=== PATIENT | female | born 1945 | race Caucasian/White ===

== ENCOUNTER → 2016-10-12 | Outpatient (CLI) | payer MEDICARE ==
[~2016-10-12] MED LIST: ASP81TEC PO; ATOR80TA; ATOR80TA PO; AZIT-21 PO; CALC-671 PO; CALC-80 PO; CARV12.52; CARV12.53 PO; CATHETER FLUSH 10 ML SYR IV PRN; CLIN-62 PO; CLOP75TA PO; CLPD75T; DICY10CA26 PO; EXEM25TA4 PO; FAMO20TA5 PO; HCT25T; HCT25T PO; HYDR1TAB PO; HYDR25TA4 PO; KCL20TCR; LEVO125T PO; LEVO500T69 PO; LVT.1T PO; METR500T PO; Melatonin PO; OMEG-12 PO; OMG1KC; PANT40SU PO; PANT40TA PO; PNT40TEC; POTA20TA15 PO; RAMI10CA PO; RAMI10CA18 PO; REGADENOSON 0.4 MG/5 ML SYR (LEXISCAN) IV ONE; RMP5C; Trazodone Hcl PO; ZLP10T PO; [UNRECOGNIZED DRUG - OTHER]
[2016-10-12 09:31] VITALS: BP 137/91
--- NOTE | 2016-10-12 14:34 | STRESS TEST ---
DATE OF SERVICE: 10/12/2016 RESTING AND POST REGADENOSON TECHNETIUM 99M TETROFOSMIN SPECT CT IMAGING ORDERING PHYSICIAN: Joycelyn Frey APRN PRIMARY PHYSICIAN: Dr. Mayo. OTHER PHYSICIAN: Wilmar Cash MD, MA, FACP, FACC CLINICAL DIAGNOSES: Coronary artery disease, atrial fibrillation. Baseline images were carried out after injection of 10.63 mCi of technetium-99m tetrofosmin. This was followed by 0.4 mg regadenoson and 30.5 mCi of technetium-99m tetrofosmin for stress imaging. The electrocardiogram showed atrial fibrillation throughout the study. Ventricular response was somewhat rapid. She tolerated the procedure well and did not report symptoms. Review of images at rest and following stress does not indicate any significant perfusion defects consistent with significant myocardial ischemia or infarction. Gated images showed normal global left ventricular systolic function with normal regional wall motion. Left ventricular ejection fraction is calculated to be 69%. Left ventricular end-diastolic volume is 24 mL. CONCLUSIONS: 1. No evidence of any significant myocardial ischemia or infarction on this study. 2. Normal regional wall motion. 3. Normal global left ventricular systolic function with a calculated ejection fraction of 69%. 4. Atrial fibrillation throughout the study with a somewhat fast ventricular response. Job ID: [id number] DocumentID: [id number] Dictated Date: 10/12/2016 12:05:50 Systems Technologist Date: 10/12/2016 13:49:48 Dictated By: WILMAR CASH MD, MARIO, FACP, FACC,
== END ==
LOC: CARD 07:56
PROVIDERS: ATTEND Nurse Practitioner Family
DX: I48.0 Paroxysmal atrial fibrillation (principal); I25.10 Atherosclerotic heart disease of native coronary artery without angina pectoris; I65.23 Occlusion and stenosis of bilateral carotid arteries; E78.4 Other hyperlipidemia; E03.8 Other specified hypothyroidism
CPT/HCPCS: 78452; 93017

== ENCOUNTER → 2016-10-16 | Outpatient (CLI) | payer MEDICARE ==
[~2016-10-16] MED LIST changes: -CATHETER FLUSH 10 ML SYR IV PRN; -REGADENOSON 0.4 MG/5 ML SYR (LEXISCAN) IV ONE
--- NOTE | 2016-10-16 18:06 | Diagnostic Imaging Report ---
Right breast screening mammogram. INDICATION: Screening. No current symptoms. The patient has had history of breast cancer status post left mastectomy. COMPARISON: 10/14/15. The current study was also evaluated with a Computer Aided Detection (CAD) system. FINDINGS: The right breast is composed of heterogeneously dense parenchyma which may decrease mammographic sensitivity. Benign-appearing and vascular calcifications are noted. Small axillary lymph nodes similar to prior studies are noted. Allowing for technique and positional differences, no suspicious change is seen. IMPRESSION: No significant change. ACR BI-RADS Category 2: Benign findings. Result letter will be mailed to the patient. Note: At least 10% of breast cancer is not imaged by mammography. Dictated by: Dictated on workstation # [id number]
== END ==
LOC: RAD 10:36
PROVIDERS: ATTEND Internal Medicine Hematology & Oncology
DX: Z12.31 Encounter for screening mammogram for malignant neoplasm of breast (principal); Z90.12 Acquired absence of left breast and nipple; Z85.3 Personal history of malignant neoplasm of breast

== ENCOUNTER → 2016-10-25 | Outpatient (CLI) | payer MEDICARE | LOC: ONC 09:24 | PROVIDERS: ATTEND Internal Medicine Hematology & Oncology | DX: Z09 Encounter for follow-up examination after completed treatment for conditions other than malignant neoplasm (principal); Z85.3 Personal history of malignant neoplasm of breast; R94.6 Abnormal results of thyroid function studies; D75.1 Secondary polycythemia; I48.0 Paroxysmal atrial fibrillation; Z79.01 Long term (current) use of anticoagulants; E11.9 Type 2 diabetes mellitus without complications; E78.5 Hyperlipidemia, unspecified; I25.2 Old myocardial infarction; I25.10 Atherosclerotic heart disease of native coronary artery without angina pectoris; Z79.82 Long term (current) use of aspirin; H40.9 Unspecified glaucoma | CPT/HCPCS: 99213 ==

== ENCOUNTER → 2017-02-27 | Day surgery (SDC) | payer MEDICARE ==
[~2017-02-27] VITALS: Ht 160 cm; Wt 97.1 kg
[~2017-02-27] MED LIST changes: +ACET-2267 PO; +AMIO200T2 PO; +APIX5TAB PO; +ASPI-983 PO; +CARV6.252 PO; +ESCI5TAB12 PO; +FURO40TA4 PO; +INFLUENZA TRIvalent 2017-2018 0.5 ML/45 MCG SYR IM ONE; +LEVO100T7 PO; +LIDOCAINE 2% VISCOUS 15 ML UDC ONE; +LIDOCAINE 2% VISCOUS 15 ML UDC PO ONE; +MELA3TAB PO; +MIDAZOLAM 5 MG/5 ML (VERSED) VIAL ONE; +NS IV 1000 ML 1,000 ML IV SCH; +NS IV 1000 ML 1,000 ML ONE; +OMEG-160 PO; +PANT40TA3 PO; +POTA10TA10 PO; +RAMI2.5C PO; +TRAZ-28 PO; +proPOfol 200 MG/20 ML (DIPRIVAN) VIAL IV ONE
[2017-02-27 10:32] VITALS: BP 127/82
[2017-02-27 11:06] LABS: PROTHROMBIN TIME PATIENT 13.3 SEC (12.2-14.7)
[2017-02-27 11:14] LABS: CALCIUM 9.1 MG/DL (8.5-10.1); CREATININE SERUM 0.95 MG/DL (0.60-1.30); TOTAL PROTEIN 6.5 GM/DL (6.4-8.2)
[2017-02-27 12:38] VITALS: BP 99/77
[2017-02-27 13:17] VITALS: BP 111/79
--- NOTE | 2017-02-27 13:22 | Progress Note-Standard ---
Standard Progress Note Progress Notes/Assess & Plan Date Seen by Provider: Feb 27, 2017 Time Seen by Provider: 12:05 Final Diagnosis Called to [facility] for cardioversion. Report obtained from [facility] RN. Short history obtained from patient. to room 50 mg propofol given for sedation. Tolerated procedure well. Report to [facility] RN. Spontaneous respirations maintained. Called back to [facility] at 1224. Patient back into A-fib. 40mg of Propofol given for re-sedation. Tolerated well, Care back to [facility] RN. GARRET ALBERTS CRNA Feb 27, 2017 13:22
--- NOTE | 2017-02-28 12:06 | OPERATIVE REPORT ---
DATE OF SERVICE: 02/27/2017 EXTERNAL ELECTRICAL CARDIOVERSION REPORT: PREOPERATIVE DIAGNOSIS: Atrial fibrillation. POSTOPERATIVE DIAGNOSIS: Sinus rhythm. PROCEDURE: External electrical cardioversion. External electrical cardioversion was carried out after having obtained an informed consent. The patient has chronically been anticoagulated for several months. She has been complaint with medications. Short acting anesthesia was administered by the nurse manager utilization. Under anesthesia, we proceeded with external electrical cardioversion. 150 joules of synchronized shock was administered through external patches and this restored sinus rhythm. This had to be repeated because she went back into a fib shortly after first cardioversion. The second time she maintained NSR with PACs Job ID: [id number] DocumentID: [id number] Dictated Date: 02/27/2017 12:18:48 Hostess Cashier Date: 02/28/2017 03:07:01 Dictated By: MICHELLE CASH MD, MA, FACP, FACC, MTDD
== END ==
LOC: CATH 09:55
PROVIDERS: ATTEND Internal Medicine Cardiovascular Disease
DX: I48.0 Paroxysmal atrial fibrillation (principal); I50.31 Acute diastolic (congestive) heart failure; I25.10 Atherosclerotic heart disease of native coronary artery without angina pectoris; E89.0 Postprocedural hypothyroidism; K21.9 Gastro-esophageal reflux disease without esophagitis; E78.5 Hyperlipidemia, unspecified; R73.09 Other abnormal glucose; Z79.01 Long term (current) use of anticoagulants; Z79.899 Other long term (current) drug therapy; Z87.891 Personal history of nicotine dependence; Z95.5 Presence of coronary angioplasty implant and graft
CPT/HCPCS: 36415; 80053; 80061; 85610; 85730; 87081; 92960; 93005; 93306

== ENCOUNTER → 2017-03-19 | Outpatient (CLI) | payer MEDICARE ==
[~2017-03-19] MED LIST changes: -INFLUENZA TRIvalent 2017-2018 0.5 ML/45 MCG SYR IM ONE; -LIDOCAINE 2% VISCOUS 15 ML UDC ONE; -LIDOCAINE 2% VISCOUS 15 ML UDC PO ONE; -MIDAZOLAM 5 MG/5 ML (VERSED) VIAL ONE; -NS IV 1000 ML 1,000 ML IV SCH; -NS IV 1000 ML 1,000 ML ONE; -proPOfol 200 MG/20 ML (DIPRIVAN) VIAL IV ONE
--- NOTE | 2017-03-19 12:24 | Diagnostic Imaging Report ---
PROCEDURE: US Thyroid. TECHNIQUE: Multiple real-time grayscale images were obtained of the thyroid in various projections. INDICATION: Elevated TSH. The patient had prior radioactive thyroid ablation. FINDINGS: No thyroid tissue is identified on this exam and no focal mass is seen. IMPRESSION: No thyroid tissue or mass seen in the thyroid bed. Dictated by: Dictated on workstation # [id number]
== END ==
LOC: RAD 08:39
PROVIDERS: ATTEND Nurse Practitioner Family
DX: R94.6 Abnormal results of thyroid function studies (principal)
CPT/HCPCS: 76536

== ENCOUNTER → 2017-07-16 | Outpatient (CLI) | payer MEDICARE ==
--- NOTE | 2017-07-16 12:37 | Diagnostic Imaging Report ---
PROCEDURE: US right lower extremity venous. TECHNIQUE: Multiple real-time grayscale images were obtained over the right lower extremity in various projections. Additional duplex Doppler and color Doppler images were also obtained. INDICATION: Right leg pain and swelling EXAMINATION: Grayscale and color Doppler evaluation of the deep veins of the right lower extremity were performed with waveform analysis. FINDINGS: Continuous venous flow is present. No intraluminal filling defect is identified. There is normal compressibility and response to augmentation. No abnormal perivascular fluid collection is identified. IMPRESSION: No ultrasound evidence of right lower extremity deep venous thrombosis. Dictated by: Dictated on workstation # [id number]
== END ==
LOC: RAD 12:05
PROVIDERS: ATTEND Family Medicine
DX: M79.89 Other specified soft tissue disorders (principal)

== ENCOUNTER 2017-08-19 09:26 | Emergency (ER) | payer MEDICARE ==
[~2017-08-19] VITALS: Ht 162.6 cm; Wt 96.6 kg
--- OUTSIDE RECORDS SUMMARY | 2017-08-19 09:33 | XMS REPORT | CCD ---
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 04/21/2015 Constitutional No recent illness 2014 Constitutional No fatigue 11/18/2014 Cardiovascular exercise intolerance 11/18 Cardiovascular fatigue 11/18/2014 Cardiovascular near-syncope/dizziness Cardiovascular palpitations 11/18/2014 Respiratory No chest tightness 2014 Constitutional No recent illness 2014 Constitutional No chills 11/10/2014 Constitutional No fatigue 11/10/2014 Constitutional No fever 11/10/2014 Constitutional No insomnia 11/10/2014 Constitutional No malaise 11/10/2014 Eyes No blindness 11/10/2014 Eyes No vision change 11/10/2014 Ears/Nose/Throat/Neck No dental pain Ears/Nose/Throat/Neck No dizziness 2014 Ears/Nose/Throat/Neck No dysphagia 2014 Ears/Nose/Throat/Neck No headache 2014 Ears/Nose/Throat/Neck No hearing loss Ears/Nose/Throat/Neck No nasal allergies 11/10/2014 Ears/Nose/Throat/Neck No sore throat Ears/Nose/Throat/Neck No postnasal drip 11/10/2014 Ears/Nose/Throat/Neck No sinus congestion 11/10/2014 Cardiovascular No chest pain/pressure Cardiovascular No dyspnea 11/10/2014 Cardiovascular No edema 11/10/2014 Cardiovascular No exercise intolerance Cardiovascular No fatigue 11/10/2014 Cardiovascular No near-syncope/dizziness 11/10/2014 Respiratory No chest tightness 2014 Respiratory No cough 11/10/2014 Respiratory No dyspnea 11/10/2014 Respiratory No pedal edema 11/10/2014 Gastrointestinal No abdominal pain 2014 Gastrointestinal No constipation 2014 Gastrointestinal No diarrhea 11/10/2014 Gastrointestinal No gastroesophageal reflux 11/10/2014 Gastrointestinal No nausea 11/10/2014 Gastrointestinal No vomiting 11/10/2014 Genitourinary/Nephrology No dysuria 11/10 Genitourinary/Nephrology No nocturia Genitourinary/Nephrology No urinary incontinence 11/10/2014 Musculoskeletal No stiffness 11/10/2014 Musculoskeletal No swelling 11/10/2014 Musculoskeletal No muscle weakness 2014 Musculoskeletal No myalgias 11/10/2014 Dermatologic No rash 11/10/2014 Dermatologic No sores 11/10/2014 Dermatologic No scar 11/10/2014 Neurologic No dizziness 11/10/2014 Neurologic No headache 11/10/2014 Neurologic No neck pain 11/10/2014 Neurologic No syncope 11/10/2014 Psychiatric No anxiety 11/10/2014 Psychiatric No depression 11/10/2014 Physical Exam Exam Name System Name Item Name Status Result Effective Dates Notes Full Exam - General 1994 Constitutional general appearance Development: well developed 04/17/2017 None Full Exam - General 1994 Constitutional general appearance Development: appears stated age 1104/17/2017 None Full Exam - General 1994 Constitutional general appearance Hygiene/Attention to Grooming: good hygiene 04/17/2017 None Full Exam - General 1994 Eyes conjunctiva /eyelids Overall: conjunctiva clear 04/17/2017 None Full Exam - General 1994 Eyes conjunctiva /eyelids Overall: cornea clear 04/17/2017 None Full Exam - General 1994 Eyes conjunctiva /eyelids Overall: eyelids normal 04/17/2017 None Full Exam - General 1994 Eyes pupils and irises Overall: pupils equal, round, reactive to light and accomodation 04/17/2017 None Full Exam - General 1994 Ears/Nose/Throat otoscopic exam Overall: external auditory canals clear 04/17/2017 None Full Exam - General 1994 Ears/Nose/Throat otoscopic exam Overall: tympanic membranes clear 04/17/2017 None Full Exam - General 1994 Ears/Nose/Throat lips/teeth/gingiva Overall: benign lips 04/17/2017 None Full Exam - General 1994 Ears/Nose/Throat lips/teeth/gingiva Overall: normal dentition 04/17/2017 None Full Exam - General 1994 Ears/Nose/Throat oral cavity/pharynx/larynx Overall: oral mucosa clear 04/17/2017 None Full Exam - General 1994 Ears/Nose/Throat oral cavity/pharynx/larynx Overall: oropharyngeal mucosa clear 04/17/2017 None Full Exam - General 1994 Ears/Nose/Throat oral cavity/pharynx/larynx Overall: hypopharynx benign 04/17/2017 None Full Exam - General 1994 Ears/Nose/Throat oral cavity/pharynx/larynx Overall: no masses 04/17/2017 None Full Exam - General 1994 Respiratory auscultation Overall: breath sounds clear bilaterally 04/17/2017 None Full Exam - General 1994 Respiratory respiratory effort/rhythm Overall: no retractions 04/17/2017 None Full Exam - General 1994 Respiratory respiratory effort/rhythm Overall: normal rate 04/17/2017 None Full Exam - General 1994 Cardiovascular extremities Overall: no clubbing 04/17/2017 None Full Exam - General 1994 Cardiovascular auscultation of heart Rate: tachycardia 04/17/2017 None Full Exam - General 1994 Cardiovascular auscultation of heart Rhythm: irregularly irregular rhythm 04/17/2017 None Full Exam - General 1994 Abdomen abdominal exam Overall: no tenderness 04/17/2017 None Full Exam - General 1994 Abdomen abdominal exam Overall: normal bowel sounds 04/17/2017 None Full Exam - General 1994 Musculoskeletal spine, ribs and pelvis Overall: spine benign 04/17/2017 None Full Exam - General 1994 Musculoskeletal spine, ribs and pelvis Overall: sacroiliac joint benign 04/17/2017 None Full Exam - General 1994 Musculoskeletal spine, ribs and pelvis Overall: good posture 04/17/2017 None Full Exam - General 1994 Musculoskeletal head and neck Overall: head atraumatic 04/17/2017 None Full Exam - General 1994 Musculoskeletal head and neck Overall: cervical spine benign 04/17/2017 None Full Exam - General 1994 Neurologic cranial nerves Overall: crainial nerves 2 - 12 grossly intact 04/17/2017 None Full Exam - General 1994 Psychiatric orientation/consciousness Overall: oriented to person, place and time 04/17/2017 None Full Exam - General 1994 Psychiatric mood and affect Overall: normal mood and affect 04/17/2017 None Full Exam - General 1994 Constitutional general appearance Development: well developed 03/12/2017 None Full Exam - General 1994 Constitutional general appearance Development: appears stated age 1003/12/2017 None Full Exam - General 1994 Constitutional general appearance Hygiene/Attention to Grooming: good hygiene 03/12/2017 None Full Exam - General 1994 Eyes conjunctiva /eyelids Overall: conjunctiva clear 03/12/2017 None Full Exam - General 1994 Eyes conjunctiva /eyelids Overall: cornea clear 03/12/2017 None Full Exam - General 1994 Eyes conjunctiva /eyelids Overall: eyelids normal 03/12/2017 None Full Exam - General 1994 Eyes pupils and irises Overall: pupils equal, round, reactive to light and accomodation 03/12/2017 None Full Exam - General 1994 Ears/Nose/Throat otoscopic exam Overall: external auditory canals clear 03/12/2017 None Full Exam - General 1994 Ears/Nose/Throat otoscopic exam Overall: tympanic membranes clear 03/12/2017 None Full Exam - General 1994 Ears/Nose/Throat lips/teeth/gingiva Overall: benign lips 03/12/2017 None Full Exam - General 1994 Ears/Nose/Throat lips/teeth/gingiva Overall: normal dentition 03/12/2017 None Full Exam - General 1994 Ears/Nose/Throat oral cavity/pharynx/larynx Overall: oral mucosa clear 03/12/2017 None Full Exam - General 1994 Ears/Nose/Throat oral cavity/pharynx/larynx Overall: oropharyngeal mucosa clear 03/12/2017 None Full Exam - General 1994 Ears/Nose/Throat oral cavity/pharynx/larynx Overall: hypopharynx benign 03/12/2017 None Full Exam - General 1994 Ears/Nose/Throat oral cavity/pharynx/larynx Overall: no masses 03/12/2017 None Full Exam - General 1994 Respiratory auscultation Overall: breath sounds clear bilaterally 03/12/2017 None Full Exam - General 1994 Respiratory respiratory effort/rhythm Overall: no retractions 03/12/2017 None Full Exam - General 1994 Respiratory respiratory effort/rhythm Overall: normal rate 03/12/2017 None Full Exam - General 1994 Cardiovascular extremities Overall: no clubbing 03/12/2017 None Full Exam - General 1994 Cardiovascular auscultation of heart Rate: tachycardia 03/12/2017 None Full Exam - General 1994 Cardiovascular auscultation of heart Rhythm: irregularly irregular rhythm 03/12/2017 None Full Exam - General 1994 Abdomen abdominal exam Overall: no tenderness 03/12/2017 None Full Exam - General 1994 Abdomen abdominal exam Overall: normal bowel sounds 03/12/2017 None Full Exam - General 1994 Lymphatic neck nodes Overall: anterior cervical chain benign 03/12/2017 None Full Exam - General 1994 Lymphatic neck nodes Overall: posterior cervical chain benign 03/12/2017 None Full Exam - General 1994 Musculoskeletal spine, ribs and pelvis Overall: spine benign 03/12/2017 None Full Exam - General 1994 Musculoskeletal spine, ribs and pelvis Overall: sacroiliac joint benign 03/12/2017 None Full Exam - General 1994 Musculoskeletal spine, ribs and pelvis Overall: good posture 03/12/2017 None Full Exam - General 1994 Musculoskeletal head and neck Overall: head atraumatic 03/12/2017 None Full Exam - General 1994 Musculoskeletal head and neck Overall: cervical spine benign 03/12/2017 None Full Exam - General 1994 Neurologic cranial nerves Overall: crainial nerves 2 - 12 grossly intact 03/12/2017 None Full Exam - General 1994 Psychiatric orientation/consciousness Overall: oriented to person, place and time 03/12/2017 None Full Exam - General 1994 Psychiatric mood and affect Overall: normal mood and affect 03/12/2017 None Full Exam - General 1994 Integument inspection of skin Rash/Lesions: papule 03/12/2017 on arms, lower legs at thighs and lower legs, no lesions on chest, neck, face Full Exam - General 1994 Constitutional general appearance Development: well developed 10/16/2016 None Full Exam - General 1994 Constitutional general appearance Development: appears stated age 0510/16/2016 None Full Exam - General 1994 Constitutional general appearance Hygiene/Attention to Grooming: good hygiene 10/16/2016 None Full Exam - General 1994 Eyes conjunctiva /eyelids Overall: conjunctiva clear 10/16/2016 None Full Exam - General 1994 Eyes conjunctiva /eyelids Overall: cornea clear 10/16/2016 None Full Exam - General 1994 Eyes conjunctiva /eyelids Overall: eyelids normal 10/16/2016 None Full Exam - General 1994 Eyes pupils and irises Overall: pupils equal, round, reactive to light and accomodation 10/16/2016 None Full Exam - General 1994 Ears/Nose/Throat otoscopic exam Overall: external auditory canals clear 10/16/2016 None Full Exam - General 1994 Ears/Nose/Throat otoscopic exam Overall: tympanic membranes clear 10/16/2016 None Full Exam - General 1994 Ears/Nose/Throat lips/teeth/gingiva Overall: benign lips 10/16/2016 None Full Exam - General 1994 Ears/Nose/Throat lips/teeth/gingiva Overall: normal dentition 10/16/2016 None Full Exam - General 1994 Ears/Nose/Throat oral cavity/pharynx/larynx Overall: oral mucosa clear 10/16/2016 None Full Exam - General 1994 Ears/Nose/Throat oral cavity/pharynx/larynx Overall: oropharyngeal mucosa clear 10/16/2016 None Full Exam - General 1994 Ears/Nose/Throat oral cavity/pharynx/larynx Overall: hypopharynx benign 10/16/2016 None Full Exam - General 1994 Ears/Nose/Throat oral cavity/pharynx/larynx Overall: no masses 10/16/2016 None Full Exam - General 1994 Respiratory auscultation Overall: breath sounds clear bilaterally 10/16/2016 None Full Exam - General 1994 Respiratory respiratory effort/rhythm Overall: no retractions 10/16/2016 None Full Exam - General 1994 Respiratory respiratory effort/rhythm Overall: normal rate 10/16/2016 None Full Exam - General 1994 Cardiovascular extremities Overall: no clubbing 10/16/2016 None Full Exam - General 1994 Abdomen abdominal exam Overall: no tenderness 10/16/2016 None Full Exam - General 1994 Abdomen abdominal exam Overall: normal bowel sounds 10/16/2016 None Full Exam - General 1994 Lymphatic neck nodes Overall: anterior cervical chain benign 10/16/2016 None Full Exam - General 1994 Lymphatic neck nodes Overall: posterior cervical chain benign 10/16/2016 None Full Exam - General 1994 Musculoskeletal spine, ribs and pelvis Overall: spine benign 10/16/2016 None Full Exam - General 1994 Musculoskeletal spine, ribs and pelvis Overall: sacroiliac joint benign 10/16/2016 None Full Exam - General 1994 Musculoskeletal spine, ribs and pelvis Overall: good posture 10/16/2016 None Full Exam - General 1994 Musculoskeletal head and neck Overall: head atraumatic 10/16/2016 None Full Exam - General 1994 Musculoskeletal head and neck Overall: cervical spine benign 10/16/2016 None Full Exam - General 1994 Integument inspection of skin Overall: few scattered moles, no gross abnormalities 10/16/2016 None Full Exam - General 1994 Neurologic deep tendon reflexes Overall: deep tendon reflexes intact 10/16/2016 None Full Exam - General 1994 Neurologic cranial nerves Overall: crainial nerves 2 - 12 grossly intact 10/16/2016 None Full Exam - General 1994 Psychiatric orientation/consciousness Overall: oriented to person, place and time 10/16/2016 None Full Exam - General 1994 Psychiatric mood and affect Overall: normal mood and affect 10/16/2016 None Full Exam - General 1994 Cardiovascular auscultation of heart Rhythm: irregularly irregular rhythm 10/16/2016 None Full Exam - General 1994 Cardiovascular auscultation of heart Rate: tachycardia 10/16/2016 None Full Exam - General 1994 Constitutional general appearance Overall: well developed 09/23/2015 None Full Exam - General 1994 Constitutional general appearance Overall: in no acute distress 09/23/2015 None Full Exam - General 1994 Constitutional general appearance Overall: well nourished 09/23/2015 None Full Exam - General 1994 Eyes conjunctiva /eyelids Overall: conjunctiva clear 09/23/2015 None Full Exam - General 1994 Eyes conjunctiva /eyelids Overall: cornea clear 09/23/2015 None Full Exam - General 1994 Eyes conjunctiva /eyelids Overall: eyelids normal 09/23/2015 None Full Exam - General 1994 Eyes pupils and irises Overall: pupils equal, round, reactive to light and accomodation 09/23/2015 None Full Exam - General 1994 Ears/Nose/Throat lips/teeth/gingiva Overall: benign lips 09/23/2015 None Full Exam - General 1994 Respiratory auscultation Overall: breath sounds clear bilaterally 09/23/2015 None Full Exam - General 1994 Respiratory respiratory effort/rhythm Overall: no retractions 09/23/2015 None Full Exam - General 1994 Respiratory respiratory effort/rhythm Overall: normal rate 09/23/2015 None Full Exam - General 1994 Cardiovascular extremities Overall: no clubbing 09/23/2015 None Full Exam - General 1994 Cardiovascular auscultation of heart Overall: regular rate 09/23/2015 None Full Exam - General 1994 Cardiovascular auscultation of heart Overall: normal heart sounds 09/23/2015 None Full Exam - General 1994 Musculoskeletal gait and station Overall: normal gait 09/23/2015 None Full Exam - General 1994 Musculoskeletal gait and station Overall: normal station 09/23/2015 None Full Exam - General 1994 Neurologic gait Overall: no ataxia, no unsteadiness 09/23/2015 None Full Exam - General 1994 Neurologic cranial nerves Overall: crainial nerves 2 - 12 grossly intact 09/23/2015 None Full Exam - General 1994 Psychiatric orientation/consciousness Overall: oriented to person, place and time 09/23/2015 None Full Exam - General 1994 Integument inspection of skin Location: back 09/23/2015 right low back mild burn Full Exam - General 1994 Constitutional general appearance Overall: well developed 07/19/2015 None Full Exam - General 1994 Constitutional general appearance Overall: in no acute distress 07/19/2015 None Full Exam - General 1994 Constitutional general appearance Overall: well nourished 07/19/2015 None Full Exam - General 1994 Eyes pupils and irises Overall: pupils equal, round, reactive to light and accomodation 07/19/2015 None Full Exam - General 1994 Eyes conjunctiva /eyelids Overall: conjunctiva clear 07/19/2015 None Full Exam - General 1994 Eyes conjunctiva /eyelids Overall: cornea clear 07/19/2015 None Full Exam - General 1994 Eyes conjunctiva /eyelids Overall: eyelids normal 07/19/2015 None Full Exam - General 1994 Ears/Nose/Throat oral cavity/pharynx/larynx Overall: oral mucosa clear 07/19/2015 None Full Exam - General 1994 Ears/Nose/Throat oral cavity/pharynx/larynx Overall: oropharyngeal mucosa clear 07/19/2015 None Full Exam - General 1994 Ears/Nose/Throat oral cavity/pharynx/larynx Overall: no masses 07/19/2015 None Full Exam - General 1994 Ears/Nose/Throat lips/teeth/gingiva Overall: benign lips 07/19/2015 None Full Exam - General 1994 Ears/Nose/Throat otoscopic exam Overall: external auditory canals clear 07/19/2015 None Full Exam - General 1994 Ears/Nose/Throat otoscopic exam Overall: tympanic membranes clear 07/19/2015 None Full Exam - General 1994 Respiratory auscultation Overall: breath sounds clear bilaterally 07/19/2015 None Full Exam - General 1994 Respiratory auscultation Right lower lung field: rhonchi 07/19/2015 cleared with cough Full Exam - General 1994 Respiratory respiratory effort/rhythm Overall: no retractions 07/19/2015 None Full Exam - General 1994 Respiratory respiratory effort/rhythm Overall: normal rate 07/19/2015 None Full Exam - General 1994 Cardiovascular auscultation of heart Overall: regular rate 07/19/2015 None Full Exam - General 1994 Cardiovascular auscultation of heart Overall: normal heart sounds 07/19/2015 None Full Exam - General 1994 Cardiovascular extremities Overall: no clubbing 07/19/2015 None Full Exam - General 1994 Abdomen abdominal exam Overall: no tenderness 07/19/2015 None Full Exam - General 1994 Abdomen abdominal exam Overall: normal bowel sounds 07/19/2015 None Full Exam - General 1994 Musculoskeletal gait and station Overall: normal gait 07/19/2015 None Full Exam - General 1994 Musculoskeletal gait and station Overall: normal station 07/19/2015 None Full Exam - General 1994 Integument inspection of skin Overall: few scattered moles, no gross abnormalities 07/19/2015 None Full Exam - General 1994 Neurologic gait Overall: no ataxia, no unsteadiness 07/19/2015 None Full Exam - General 1994 Neurologic cranial nerves Overall: crainial nerves 2 - 12 grossly intact 07/19/2015 None Full Exam - General 1994 Psychiatric orientation/consciousness Overall: oriented to person, place and time 07/19/2015 None Full Exam - General 1994 Constitutional general appearance Development: well developed 05/05/2015 None Full Exam - General 1994 Constitutional general appearance Development: appears stated age 1205/05/2015 None Full Exam - General 1994 Constitutional general appearance Hygiene/Attention to Grooming: good hygiene 05/05/2015 None Full Exam - General 1994 Eyes conjunctiva /eyelids Overall: conjunctiva clear 05/05/2015 None Full Exam - General 1994 Eyes conjunctiva /eyelids Overall: cornea clear 05/05/2015 None Full Exam - General 1994 Eyes conjunctiva /eyelids Overall: eyelids normal 05/05/2015 None Full Exam - General 1994 Eyes pupils and irises Overall: pupils equal, round, reactive to light and accomodation 05/05/2015 None Full Exam - General 1994 Ears/Nose/Throat otoscopic exam Overall: external auditory canals clear 05/05/2015 None Full Exam - General 1994 Ears/Nose/Throat otoscopic exam Overall: tympanic membranes clear 05/05/2015 None Full Exam - General 1994 Ears/Nose/Throat lips/teeth/gingiva Overall: benign lips 05/05/2015 None Full Exam - General 1994 Ears/Nose/Throat lips/teeth/gingiva Overall: normal dentition 05/05/2015 None Full Exam - General 1994 Ears/Nose/Throat oral cavity/pharynx/larynx Overall: oral mucosa clear 05/05/2015 None Full Exam - General 1994 Ears/Nose/Throat oral cavity/pharynx/larynx Overall: oropharyngeal mucosa clear 05/05/2015 None Full Exam - General 1994 Ears/Nose/Throat oral cavity/pharynx/larynx Overall: no masses 05/05/2015 None Full Exam - General 1994 Respiratory auscultation Overall: breath sounds clear bilaterally 05/05/2015 None Full Exam - General 1994 Respiratory respiratory effort/rhythm Overall: no retractions 05/05/2015 None Full Exam - General 1994 Respiratory respiratory effort/rhythm Overall: normal rate 05/05/2015 None Full Exam - General 1994 Cardiovascular extremities Overall: no clubbing 05/05/2015 None Full Exam - General 1994 Cardiovascular auscultation of heart Overall: regular rate 05/05/2015 None Full Exam - General 1994 Cardiovascular auscultation of heart Overall: normal heart sounds 05/05/2015 None Full Exam - General 1994 Abdomen abdominal exam Overall: no tenderness 05/05/2015 None Full Exam - General 1994 Abdomen abdominal exam Overall: normal bowel sounds 05/05/2015 None Full Exam - General 1994 Musculoskeletal spine, ribs and pelvis Overall: good posture 05/05/2015 None Full Exam - General 1994 Musculoskeletal head and neck Overall: head atraumatic 05/05/2015 None Full Exam - General 1994 Musculoskeletal head and neck Overall: cervical spine benign 05/05/2015 None Full Exam - General 1994 Neurologic cranial nerves Overall: crainial nerves 2 - 12 grossly intact 05/05/2015 None Full Exam - General 1994 Psychiatric orientation/consciousness Overall: oriented to person, place and time 05/05/2015 None Full Exam - General 1994 Psychiatric orientation/consciousness Level of consciousness: alert 05/05/2015 None Full Exam - General 1994 Psychiatric appearance Overall: well-groomed, good eye contact 05/05/2015 None Full Exam - General 1994 Psychiatric speech Overall: normal quality, no aphasia 05/05/2015 None Full Exam - General 1994 Psychiatric speech Overall: normal quality, quantity, rate 05/05/2015 None Full Exam - General 1994 Psychiatric thought Overall: normal form and content 05/05/2015 None Full Exam - General 1994 Psychiatric mood and affect Overall: normal mood and affect 05/05/2015 None Full Exam - General 1994 Constitutional general appearance Development: well developed 04/21/2015 None Full Exam - General 1994 Constitutional general appearance Development: appears stated age 1104/21/2015 None Full Exam - General 1994 Constitutional general appearance Hygiene/Attention to Grooming: good hygiene 04/21/2015 None Full Exam - General 1994 Eyes conjunctiva /eyelids Overall: conjunctiva clear 04/21/2015 None Full Exam - General 1994 Eyes conjunctiva /eyelids Overall: cornea clear 04/21/2015 None Full Exam - General 1994 Eyes conjunctiva /eyelids Overall: eyelids normal 04/21/2015 None Full Exam - General 1994 Eyes pupils and irises Overall: pupils equal, round, reactive to light and accomodation 04/21/2015 None Full Exam - General 1994 Ears/Nose/Throat otoscopic exam Overall: external auditory canals clear 04/21/2015 None Full Exam - General 1994 Ears/Nose/Throat otoscopic exam Overall: tympanic membranes clear 04/21/2015 None Full Exam - General 1994 Ears/Nose/Throat lips/teeth/gingiva Overall: benign lips 04/21/2015 None Full Exam - General 1994 Ears/Nose/Throat lips/teeth/gingiva Overall: normal dentition 04/21/2015 None Full Exam - General 1994 Ears/Nose/Throat oral cavity/pharynx/larynx Overall: oral mucosa clear 04/21/2015 None Full Exam - General 1994 Ears/Nose/Throat oral cavity/pharynx/larynx Overall: oropharyngeal mucosa clear 04/21/2015 None Full Exam - General 1994 Ears/Nose/Throat oral cavity/pharynx/larynx Overall: no masses 04/21/2015 None Full Exam - General 1994 Respiratory auscultation Overall: breath sounds clear bilaterally 04/21/2015 None Full Exam - General 1994 Respiratory respiratory effort/rhythm Overall: no retractions 04/21/2015 None Full Exam - General 1994 Respiratory respiratory effort/rhythm Overall: normal rate 04/21/2015 None Full Exam - General 1994 Cardiovascular extremities Overall: no clubbing 04/21/2015 None Full Exam - General 1994 Cardiovascular auscultation of heart Overall: regular rate 04/21/2015 None Full Exam - General 1994 Cardiovascular auscultation of heart Overall: normal heart sounds 04/21/2015 None Full Exam - General 1994 Abdomen abdominal exam Overall: no tenderness 04/21/2015 None Full Exam - General 1994 Abdomen abdominal exam Overall: normal bowel sounds 04/21/2015 None Full Exam - General 1994 Lymphatic neck nodes Overall: anterior cervical chain benign 04/21/2015 None Full Exam - General 1994 Lymphatic neck nodes Overall: posterior cervical chain benign 04/21/2015 None Full Exam - General 1994 Musculoskeletal spine, ribs and pelvis Overall: good posture 04/21/2015 None Full Exam - General 1994 Musculoskeletal head and neck Overall: head atraumatic 04/21/2015 None Full Exam - General 1994 Musculoskeletal head and neck Overall: cervical spine benign 04/21/2015 None Full Exam - General 1994 Neurologic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 Fatigue - pt states that she is feeling a little better on the new medication, pt is to monitory symptoms and notify clinic with any changes or concerns. Depression - Pt has been counseled about the diagnosis of depression, the potential causes, and risks associated with the diagnosis. The pt denies suicidal ideation, or plans. The patient has been counseled about treatment options, and understands the risks associated with treatment of depression, as well as the risks associated with NOT treating the depression. I believe the pt will benefit from medical intervention and an antidepressant has been appropriately prescribed for this patient. Anxiety - the patient has uncontrolled anxiety and will benefit from an SSRI on a daily basis to attempt control of the symptoms of anxiety (tachycardia, overwhelming sensations, stress, insomnia, etc). Pt is aware of the risks and benefits of treatment with the above medications. . URI - Pt advised to increase fluids, vitamin C. Discussed natural and expected course of this diagnosis and need to alert me if symptoms do not follow expected course, or if any worse. RX sent to patient's pharmacy. Sinusitis - Pt has acute infection - pain in face, maxillary region, Pt informed to use decongestant, RX given to patient, sinus rinses also recommended. Call if symptoms do not show improvement. . Hypertension - well controlled - continue with current medications, continue with no added salt diet. Pt has been encouraged to exercise daily. The pt has been advised to call the office if there are any acute concerns about change in blood pressure readings at home. Insomnia - continue with temazepam and melatonin. melatonin over the counter trazodone rx sent to [facility] . Hypertension - well controlled - continue with current medications, continue with no added salt diet. Pt has been encouraged to exercise daily. The pt has been advised to call the office if there are any acute concerns about change in blood pressure readings at home. Insomnia - melatonin and trazodone the new medication prescribed to help you sleep is called TEMAZEPAM - it is 7.5mg - you need to let us know if this is not helping you to get to rest, or if your insurance won't cover this medication - or if it is too costly for you to purchase at the pharmacy.. Hypertension - well controlled - continue with current medications, continue with no added salt diet. Pt has been encouraged to exercise daily. The pt has been advised to call the office if there are any acute concerns about change in blood pressure readings at home. Chronic Depression and anxiety - the pt has symptoms of chronic anxiety and depression that have been fairly well controlled since the last office visit. The pt has expected periods of exacerbation with abatement of the symptoms with change in situational exposure. No change in current medications. Hypothyroidism - pt with chronic hypothyroidism, continue with current medication, will monitor pt to signs or symptoms of lack of adequate supplementation. Pt is to continue with current dose of medication unless directed otherwise. Check labs at regular intervals wither q 3 months or q 6 months based on previous levels of control. Check lab today. Hyperlipidemia - pt has been counseled about appropriate diet, exercise, and need for low fat food choices. I have discussed the need for the patient to take medications as prescribed. If the patient has negative side effects from the medication, they are to CALL the office and not abruptly discontinue the medication without discussion with a practitioner in the office. We will check labs in 3-6 months for follow up on the patient's chronic medical problem and to assure normal liver response to medications. Insomnia - RX for temazepam Sores on arms/legs - suspect due to pt using a netted body scrubber. I have advised pt to stop use of this and to use dial soap x 1 week and call if not improving. Pt given a flu shot today . Daughter says that her and she retired in the same year and that she stays at home watching TV all day. Pt states that she feels tired all of the time. Pt states that she sleeps OK at night. Daughter says that the patient snores. Pt states that she had a sleep study done several years ago and that she is not going to do that again. Depression - uncontrolled - Pt has been counseled about the diagnosis of depression, the potential causes, and risks associated with the diagnosis. The pt denies suicidal ideation, or plans. The patient has been counseled about treatment options, and understands the risks associated with treatment of depression, as well as the risks associated with NOT treating the depression. I believe the pt will benefit from medical intervention and an antidepressant has been appropriately prescribed for this patient. Anxiety - the patient has uncontrolled anxiety and will benefit from an SSRI on a daily basis to attempt control of the symptoms of anxiety (tachycardia, overwhelming sensations, stress, insomnia, etc). Pt is aware of the risks and benefits of treatment with the above medications. . Pt sent to the hospital for labs, ekg - we will call with report. Addendum - pt's ekg was sent to the manager mining - he started her on eliquis and increased othe rmedications. . Wound Instructions - pt states that she was sleeping on a heated mattress and woke up with a burn - will give rx cream, pt to call if not improved or if redness, pustular drainage, or any other acute concerns. . Wound Instructions - pt states that she was sleeping on a heated mattress and woke up with a burn - will give rx cream, pt to call if not improved or if redness, pustular drainage, or any other acute concerns.
--- OUTSIDE RECORDS SUMMARY | 2017-08-19 09:34 | XMS REPORT | CCD ---
Author Author [facility] Organization [facility] Address [address] [place] [address] Phone Care Team Providers Care Safety Inspector Name Role Phone PP Unavailable CCM Unavailable Summary Purpose Interface Exchange Insurance Providers Payer name Policy type / Coverage type Covered democrat ID Effective Begin Date Effective End Date WPS Medicare Part B Medicare Part B [id number] Unknown Unknown [facility] Medicare Part B [id number] Unknown Unknown Family history Mother Diagnosis Age At Onset No Family Disease Entered N/A Father Diagnosis Age At Onset Heart Attack Unknown Social History Social History Element Codes Description Effective Dates Marital status Unknown 11/10/2014 Number of children Unknown 2 11/10/2014 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/[address]: 9177352 Former smoker quit november 28, 1998 11/10/[address]: 599944456 Never drinks alcohol 11/10/2014 Allergies, Adverse Reactions, [...] Start Date Stop Date Status Fill Instructions enalapril maleate 5 mg tablet RxNorm: 017302 1 Tablet(s) PO daily 05/18/2017 05/12/2018 Active Start after she runs out of ramipril enalapril maleate 5 mg tablet RxNorm: 152448 1 Tablet(s) PO daily 05/18/2017 05/17/2017 Inactive Start after she runs out of ramipril Lexapro 5 mg tablet RxNorm: 098266 1 Tablet(s) PO daily 201610/05/2017 Active Synthroid 112 mcg tablet RxNorm: 519627 1 Tablet(s) PO daily 09/17/2017 Active Please fill brand name- If too expensive, okay to fill generic Synthroid 112 mcg tablet RxNorm: 598910 1 Tablet(s) PO daily 03/21/2017 Inactive Please fill brand name- If too expensive, okay to fill generic temazepam 15 mg capsule RxNorm: 818286 1 Capsule(s) PO daily 07/10/2017 Active temazepam 7.5 mg capsule RxNorm: 291433 1 Capsule(s) PO daily 03/06/2017 03/05/2017 Inactive temazepam 7.5 mg capsule RxNorm: 440109 1 Capsule(s) PO daily 03/06/2017 03/12/2017 Inactive Protonix 40 mg tablet,delayed release RxNorm: 196230 TAKE ONE (1) TABLET BY MOUTH DAILY 11/13/2016 05/11/2017 Inactive Generic For:PROTONIX 40MG TAB EC 11/13/2016 8 :45:05 AM Lexapro 5 mg tablet RxNorm: 876260 1 Tablet(s) PO daily 201604/08/2017 Inactive Protonix 40 mg tablet,delayed release RxNorm: 373417 TAKE ONE (1) TABLET BY MOUTH DAILY 11/10/2016 11/12/2016 Inactive Generic For:PROTONIX 40MG TAB EC REFILL REQUEST 11/10/2016 4:58:23 PM trazodone 50 mg tablet RxNorm: 429370 TAKE ONE TABLET BY MOUTH DAILY AT BEDTIME 11/10/2016 03/05/2017 Inactive Generic For:DESYREL 50 MG TABLET REFILL REQUEST 4:59:44 PM levothyroxine 112 mcg tablet RxNorm: 659167 1 Tablet(s) PO daily 10/25/2016 10/24/2016 Inactive levothyroxine 112 mcg tablet RxNorm: 226804 1 Tablet(s) PO daily 10/25/2016 03/21/2017 Inactive Lexapro 5 mg tablet RxNorm: 540131 1 Tablet(s) PO daily 201611/11/2016 Inactive Protonix 40 mg tablet,delayed release RxNorm: 027114 TAKE ONE (1) TABLET BY MOUTH DAILY 08/15/2016 11/09/2016 Inactive Generic For:PROTONIX 40MG TAB EC REFILL REQUEST 08/14/2016 2:19:27 PM Lexapro 5 mg tablet RxNorm: 897480 1 Tablet(s) PO daily 201510/12/2016 Inactive levothyroxine 100 mcg tablet RxNorm: 350001 TAKE ONE (1) TABLET BY MOUTH DAILY FOR THYROID 04/17/2016 10/24/2016 Inactive Generic For:*SYNTHROID 100 MCG TABLET refill request Lexapro 5 mg tablet RxNorm: 943266 1 Tablet(s) PO daily 201504/15/2016 Inactive Lexapro 5 mg tablet RxNorm: 950840 1 Tablet(s) PO daily 201502/15/2016 Inactive trazodone 50 mg tablet RxNorm: 449850 1 Tablet(s) PO QHS 201511/09/2016 Inactive Protonix 40 mg tablet,delayed release RxNorm: 057246 1 Tablet(s) PO daily 11/15/2015 08/14/2016 Inactive Lexapro 5 mg tablet RxNorm: 176734 1 Tablet(s) PO daily 201501/20/2016 Inactive Zithromax Z-Thomas 250 mg tablet RxNorm: 215039 Tablet(s) PO UD 05/25/2016 Inactive Eliquis 5 mg tablet RxNorm: 6243563 1 Tablet(s) PO BID 201404/28/2016 Inactive Lexapro 5 mg tablet RxNorm: 932834 1 Tablet(s) PO daily 201409/01/2015 Inactive Lexapro 5 mg tablet RxNorm: 183805 1 Tablet(s) PO daily 201405/04/2015 Inactive carvedilol 12.5 mg tablet RxNorm: 732555 TAKE ONE TABLET BY MOUTH TWICE DAILY 02/22/2015 08/20/2015 Inactive Generic For:COREG 12.5 MG TABLET 02/22/2015 9:51: 54 AM Eliquis 2.5 mg tablet RxNorm: 4005759 1 Tablet(s) PO BID 201405/04/2015 Inactive levothyroxine 100 mcg tablet RxNorm: 876808 1 po daily for thyroid 01/21/2015 04/16/2016 Inactive carvedilol 12.5 mg tablet RxNorm: 181601 1 Tablet(s) PO BID 02/19/2015 Inactive [SAVINGS FOR NON-COVERED DRUGS -- BIN:[id number], PCN: ASPROD1, Group: XXXXX, ID# [id number], Questions: . THIS IS NOT INSURANCE.] Protonix 40 mg tablet,delayed release RxNorm: 874435 1 Tablet(s) PO daily 11/17/2014 11/16/2014 Inactive Protonix 40 mg tablet,delayed release RxNorm: 949317 1 Tablet(s) PO daily 11/17/2014 11/11/2015 Inactive trazodone 50 mg tablet RxNorm: 973164 1 Tablet(s) PO QHS 201411/04/2015 Inactive potassium chloride ER 10 mEq tablet,extended release RxNorm: 235076 Tablet(s) PO daily as needed TAKE WITH LASIX 10/29/2014 No Stop Date Active Lasix 20 mg tablet RxNorm: 677278 1 Tablet(s) PO daily as needed EDEMA 10/29/2014 03/11/2017 Inactive Altace 10 mg capsule RxNorm: 264435 1 Capsule(s) PO daily 10/2010/19/2014 Inactive Altace 10 mg capsule RxNorm: 576291 1 Capsule(s) PO daily 10/2012/18/2014 Inactive [SAVINGS FOR NON-COVERED DRUGS -- BIN:[id number], PCN: ASPROD1, Group: XXXXX, ID # [id number], Questions: . THIS IS NOT INSURANCE.] carvedilol 12.5 mg tablet RxNorm: 651726 1 Tablet(s) PO BID 12/18/2014 Inactive [SAVINGS FOR NON-COVERED DRUGS -- BIN:[id number], PCN: ASPROD1, Group: XXXXX, ID# [id number], Questions: . THIS IS NOT INSURANCE.] carvedilol 12.5 mg tablet RxNorm: 174719 1 Tablet(s) PO BID 10/19/2014 Inactive carvedilol 6.25 mg tablet RxNorm: 337937 1 Tablet(s) PO BID No Start Date Active aspirin 81 mg tablet RxNorm: 486597 1 Tablet(s) PO daily No Start Date Active hydrochlorothiazide 25 mg tablet RxNorm: 199560 1 Tablet(s) PO daily No Start Date Active calcium carb 600 mg(1,500 mg)-vit D3 200 unit-minerals chewable tablet RxNorm: 194544 1 Tablet(s) PO BID No Start Date Active furosemide 40 mg tablet RxNorm: 552853 1 Tablet(s) PO daily No Start Date Active Protonix 40 mg tablet,delayed release RxNorm: 686292 1 Tablet(s) PO daily No Start Date 11/16/2014 Inactive Lipitor 80 mg tablet RxNorm: 625051 1 Tablet(s) PO QHS No Start Date Active Fish Oil 1,000 mg capsule RxNorm: 1 Capsule(s) PO BID No Start Date Active amiodarone 200 mg tablet RxNorm: 940646 2 Tablet(s) PO BID No Start Date Active levothyroxine 100 mcg tablet RxNorm: 917485 1 Tablet(s) PO daily No Start Date 01/20/2015 Inactive Lasix 20 mg tablet RxNorm: 470560 1 Tablet(s) PO daily as needed EDEMA No Start Date 10/28/2014 Inactive zolpidem 10 mg tablet RxNorm: 668319 1 Tablet(s) PO QHS No Start Date 11/09/2014 Inactive melatonin 3 mg tablet RxNorm: 444941 2 Tablet(s) PO QHS No Start Date 03/05/2017 Inactive potassium chloride ER 10 mEq tablet,extended release RxNorm: 199247 Tablet(s) PO daily as needed TAKE WITH LASIX No Start Date 10/28/2014 Inactive exemestane 25 mg tablet RxNorm: 935179 1 Tablet(s) PO daily No Start Date 10/15/2016 Inactive Plavix 75 mg tablet RxNorm: 022965 1 Tablet(s) PO every other day No Start Date 05/04/2015 Inactive trazodone 50 mg tablet RxNorm: 409291 1 Tablet(s) PO QHS No Start Date 11/09/2014 Inactive carvedilol 12.5 mg tablet RxNorm: 590545 1 Tablet(s) PO BID No Start Date 05/25/2016 Inactive Medication Administered No Medication Administered data Immunizations Vaccine Codes Date Status Influenza CVX: 141 03/12/2017 completed Assessments Condition Codes Effective Dates Other insomnia ICD-10: G47.09 ICD-9: 327.09 04/17/2017 Essential (primary) hypertension ICD-10: I10 ICD-9: 401.9 04/17/2017 Generalized anxiety disorder ICD-10: F41.1 ICD-9: 313.0 03/12/2017 Atrophy of thyroid (acquired) ICD-10: E03.4 ICD-9: 244.8 03/12/2017 Encounter for immunization ICD-10: Z23 ICD-9: V04.81 03/12/2017 Mixed hyperlipidemia ICD-10: E78.2 ICD-9: 272.2 03/12/2017 Persistent atrial fibrillation ICD-10: I48.1 ICD-9: 427.31 10/16/2016 Hypothyroidism, unspecified ICD-10: E03.9 ICD-9: 244.9 10/16/2016 Burn of second degree of lower back, initial encounter ICD- 10: T21.24XA ICD-9: 942.24 09/23/2015 Acute upper respiratory infection, unspecified ICD-10: J06.9 ICD-9: 465.9 07/19/2015 Cough ICD-10: R05 ICD-9: 786.2 07/19/2015 Other acute sinusitis ICD-10: J01.80 ICD-9: 461.8 07/19/2015 Other fatigue ICD-10: R53.83 ICD-9: 780.79 05/05/2015 Major depressive disorder, single episode, mild ICD-10: F32.0 ICD-9: 296.21 05/05/2015 Vertigo ICD-9: 780.4 11/18/2014 ATRIAL FIBRILLATION ICD-9: 427.31 2014 ESSENTIAL HYPERTENSION ICD-9: 401.9 11/10 INSOMNIA NOS ICD-9: 780.52 11/10/2014 Reason For Visit Reason For Visit Effective Dates Notes hypertension 04/17/2017 hypertension 03/12/2017 medication follow up 10/16/2016 blisters 09/23/2015 cough 07/19/2015 fatigue 05/05/2015 fatigue 04/21/2015 vertigo 11/18/2014 Hospital Follow Up 11/10/2014 Results Observation Observation Code Item Item Code Result Date Free T4 Pdl334 FREE T4 1.80 ng/dL 07/06/2017 Tsh Ord6 TSH (3rd IS) 1.74 uIU/mL 07/06/2017 Free T4 Lpz812 FREE T4 1.34 ng/dL 03/12/2017 Tsh Ord6 hTSH II 12.43 uIU/mL 03/12/2017 Comp Metabolic Qbb116 NA 140 mEq/L 10/18/2016 Comp Metabolic Jul861 K 4.4 mEq/L 10/18/2016 Comp Metabolic Pye103 CL 104 mEq/L 10/18/2016 Comp Metabolic Wik698 CO2 28.0 mEq/L 10/18/2016 Comp Metabolic Qxv258 ANION GAP 12 10/18/2016 Comp Metabolic Soz703 GLUCOSE 115 mg/dL 10/18/2016 Comp Metabolic Hej639 Creat 0.9 mg/dL 10/18/2016 Comp Metabolic Ado932 eGFR 69 ml/min/1.73m2 10/18/2016 Comp Metabolic Zxa359 BUN 11 mg/dL 10/18/2016 Comp Metabolic Ybb830 B/C Ratio 12.8 Ratio 10/18/2016 Comp Metabolic Hmt807 CALCIUM 9.0 mg/dL 10/18/2016 Comp Metabolic Ncq823 ALK PHOS 69 U/L 10/18/2016 Comp Metabolic Kkt793 AST(SGOT) 16 U/L 10/18/2016 Comp Metabolic Mxp671 ALT(SGPT) 17 U/L 10/18/2016 Comp Metabolic Ekl833 BILI T 0.7 mg/dL 10/18/2016 Comp Metabolic Obg959 ALBUMIN 4.0 g/dL 10/18/2016 Comp Metabolic Uzh719 TPRO 6.0 g/dL 10/18/2016 Comp Metabolic Myq730 GLOB 2.0 g/dL 10/18/2016 Comp Metabolic Yvl058 A/G Ratio 2.0 Ratio 10/18/2016 Comp Metabolic Iqd120 Osmo 280 mOsmo 10/18/2016 Tsh Ord6 hTSH II 7.43 uIU/mL 10/18/2016 Free T4 Hhg678 FREE T4 1.07 ng/dL 10/18/2016 Lipid Ord30 CHOL 227 mg/dL 10/18/2016 Lipid Ord30 HDL 54.0 mg/dl 10/18/2016 Lipid Ord30 TRIG 177 mg/dL 10/18/2016 Lipid Ord30 LDL 138 mg/dL 10/18/2016 Lipid Ord30 C/HDL 4.2 Ratio 10/18/2016 Cbc With Differential Ord2 WBC 7.01 K/ul 10/18/2016 Cbc With Differential Ord2 RBC 4.62 M/ul 10/18/2016 Cbc With Differential Ord2 HGB 15.4 g/dl 10/18/2016 Cbc With Differential Ord2 Neut% 60.8 % 10/18/2016 Cbc With Differential Ord2 HCT 45.0 % 10/18/2016 Cbc With Differential Ord2 Lymph% 25.2 % 10/18/2016 Cbc With Differential Ord2 MCV 97.4 fl 10/18/2016 Cbc With Differential Ord2 [place]% 6.3 % 10/18/2016 Cbc With Differential Ord2 MCH 33.3 pg 10/18/2016 Cbc With Differential Ord2 Eos% 6.7 % 10/18/2016 Cbc With Differential Ord2 MCHC 34.2 pg 10/18/2016 Cbc With Differential Ord2 PLT 324 K/ul 10/18/2016 Cbc With Differential Ord2 Baso% 1.0 % 10/18/2016 Cbc With Differential Ord2 Neut ABS# 4.26 K/ul 10/18/2016 Cbc With Differential Ord2 RDW 13.2 % 10/18/2016 Cbc With Differential Ord2 Lymph ABS# 1.77 K/ul 10/18/2016 Cbc With Differential Ord2 [place] ABS# 0.4 K/ul 10/18/2016 Cbc With Differential Ord2 Eos ABS# 0.5 K/ul 10/18/2016 Cbc With Differential Ord2 Baso ABS# 0.1 K/ul 10/18/2016 Review of Systems System Result Effective [...] NO PRSV 4 BETH 3 YRS+ CPT-4: 23357 03/12/2017 ADMIN INFLUENZA VIRUS VAC CPT-4: G0008 03/12/2017 Vital Signs Date Vital 04/17/2017 Blood Pressure 1: 124/72 Code : 8480-6 BMI: 36.0 Code : 31954-9 Heart Rate 1 : 95 bpm Height: 5'4" SpO2: 56% Weight: 210 lbs 03/12/2017 Blood Pressure 1: 130/78 Code : 8480-6 BMI: 35.9 Code : 21998-1 Heart Rate 1 : 67 bpm Height: 5'4" SpO2: 95% Weight: 209 lbs 10/16/2016 Blood Pressure 1: 134/72 Code : 8480-6 BMI: 36.9 Code : 14980-5 Heart Rate 1 : 102 bpm Height: 5'4" SpO2: 95% Weight: 215 lbs 09/23/2015 Blood Pressure 1: 124/78 Code : 8480-6 BMI: 33.5 Code : 48297-4 Heart Rate 1 : 80 bpm Height: 5'4" Weight: 195 lbs 07/19/2015 Blood Pressure 1: 120/64 Code : 8480-6 BMI: 33.3 Code : 03871-0 Heart Rate 1 : 69 bpm Height: 5'4" SpO2: 95% Weight: 194 lbs 05/05/2015 Blood Pressure 1: 112/74 Code : 8480-6 BMI: 32.3 Code : 14634-9 Heart Rate 1 : 74 bpm Height: 5'4" SpO2: 97% Weight: 188 lbs 04/21/2015 Blood Pressure 1: 126/64 Code : 8480-6 BMI: 32.3 Code : 14016-1 Heart Rate 1 : 49 bpm Height: 5'4" SpO2: 94% Weight: 188 lbs 11/18/2014 Blood Pressure 1: 96/64 Code : 8480-6 Heart Rate 1: 88 bpm Height: SpO2: 98% Weight: 11/10/2014 Blood Pressure 1: 102/70 Code : 8480-6 BMI: 32.1 Code : 78863-4 Heart Rate 1 : 68 bpm Height: [...] data Encounters Encounter Performer Location Codes Date ([id number]) [id number] EST. PATIENT, LEVEL IV Diagnosis: Essential (primary) hypertension[ICD10: I10] Diagnosis: Other insomnia[ICD10: G47.09] Alexandra Mayo MD, [facility] CPT- 4: 29866 04/17/2017 ([id number]) 80435 EST. PATIENT, LEVEL IV Diagnosis: Essential (primary) hypertension[ICD10: I10] Diagnosis: Generalized anxiety disorder[ICD10: F41.1] Diagnosis: Atrophy of thyroid (acquired)[ICD10: E03.4] Diagnosis: Encounter for immunization[ICD10: Z23] Diagnosis: Mixed hyperlipidemia[ICD10: E78.2] Diagnosis: Other insomnia[ICD10: G47.09] Alexandra Mayo MD, [facility] CPT- 4: 91693 03/12/2017 ([id number]) 22699 EST. PATIENT, LEVEL IV Diagnosis: Essential (primary) hypertension[ICD10: I10] Diagnosis: Persistent atrial fibrillation[ICD10: I48.1] Diagnosis: Hypothyroidism, unspecified[ICD10: E03.9] Eliza Mayo MD, [facility] CPT-4: 00792 10/16/2016 [id number] EST. PATIENT, LEVEL IV Diagnosis: Burn of second degree of lower back, initial encounter[ICD10: T21.24XA] Silke Mayo MD, [facility] CPT-4: 84806 2015 36844 EST. PATIENT, LEVEL IV Diagnosis: Cough[ICD10: R05] Diagnosis: Acute upper respiratory infection, unspecified[ICD10: J06.9] Diagnosis: Other acute sinusitis[ICD10: J01.80] Silke Mayo MD, [facility] CPT-4: 08120 07/19/2015 [id number] EST. PATIENT, LEVEL IV Diagnosis: Generalized anxiety disorder[ICD10: F41.1] Diagnosis: Other fatigue[ICD10: R53.83] Diagnosis: Major depressive disorder, single episode, mild[ICD10: F32.0] Silke Mayo MD , [facility] CPT-4: 35822 05/05/2015 17784 EST. PATIENT, LEVEL IV Diagnosis: Generalized anxiety disorder[ICD10: F41.1] Diagnosis: Other fatigue[ICD10: R53.83] Diagnosis: Major depressive disorder, single episode, mild[ICD10: F32.0] Silke Mayo MD , [facility] CPT-4: 86573 04/21/2015 ([id number]) 82551 EST. PATIENT, LEVEL III Diagnosis: ATRIAL FIBRILLATION[ICD9: 427.31] Diagnosis: Vertigo[ICD9: 780.4] Alexandra Mayo MD, [facility] CPT-4: 79366 11/18/2014 ([id number]) 07213 EST. PATIENT, LEVEL III Diagnosis: ESSENTIAL HYPERTENSION[ICD9: 401.9] Diagnosis: INSOMNIA NOS[ICD9: 780.52] [facility] CPT- 4: 68133 11/10/2014 Plan of Care Planned Activity Notes [...] and melatonin. 04/17/2017 Appointment: Alexandra Mayo WPtel: [address] [place], [place] [phone] (15 min) Moderate 04/17/2017 Patient Education: Patient [...] today 03/12/2017 [facility] [phone] [facility] ([facility] min) Moderate 03/12/2017 Patient Education: Patient [...] of control. 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 11/18/2014 App[facility]ment: [facility] [phone] [facility] (10 min) Simple 11/18/2014 Patient Education: Patient [...] and trazodone 11/10/2014 App[facility]ment: [facility] [phone] [facility] [place] New Patient 11/10/2014 Patient Education: [...] - pt's ekg was sent to the supervisor publications production - he started her on eliquis and [...]
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
--- NOTE | 2017-08-19 11:26 | ED General ---
General Chief Complaint: Bite-Animal/Human/Insect Stated Complaint: DOG BITE ON R HAND RING FINGER Nursing Triage Note: TO ROOM REPORTS THAT WAS FEEDING A STRAY DOG AND HIT BIT HER R 4TH FINGER Nursing Sepsis Screen: No Definite Risk Source of Information: Patient Exam Limitations: No Limitations History of Present Illness Date Seen by Provider: Aug 19, 2017 Time Seen by Provider: 11:26 Initial Comments 72 yo female patient presents to the ED with c/o a dog bite to the right 4th finger while feeding a stray dog. States she has never seen this dog before and does not think she can catch it to observe for rabies symptoms. Allergies and Home Medications Allergies Coded Allergies: Penicillins (Verified Allergy, Unknown, 05/08/07) Home Medications Acetaminophen 500 Mg Tablet, 1,000 MG PO HS, (Reported) TAKES 2 (500MG) TABLETS Amiodarone HCl 200 Mg Tablet, 400 MG PO BID, (Reported) TWO TABLETS OF 200 MG TWICE A DAY FOR TOTAL DOSE OF 400MG TWICE DAILY Apixaban 5 Mg Tablet, 5 MG PO BID, (Reported) Aspirin 81 Mg Tablet.dr, 81 MG PO Q48H, (Reported) Carvedilol 6.25 Mg Tablet, 6.25 MG PO BID, (Reported) Clindamycin HCl 300 Mg Capsule, 300 MG PO QID Prescribed by: TOYA VU on 08/19/17 134 Escitalopram Oxalate 5 Mg Tablet, 5 MG PO DAILY, (Reported) Furosemide 40 Mg Tablet, 40 MG PO DAILY, (Reported) Hydrocodone Bit/Acetaminophen 1 Tab Tab, 1 TAB PO Q4H PRN for pain Prescribed by: TOYA VU on 08/19/17 1343 Levofloxacin 500 Mg Tablet, 500 MG PO DAILY Prescribed by: TOYA VU on 08/19/17 1343 Levothyroxine Sodium 100 Mcg Tablet, 100 MCG PO DAILY, (Reported) Melatonin 3 Mg Tablet, 6 MG PO HS, (Reported) TAKES 2 (3MG) TABLETS [place]-3/Dha/Epa/Fish Oil 1 Each Capsule, 1,000 MG PO BID, (Reported) Pantoprazole Sodium 40 Mg Tablet.dr, 40 MG PO DAILY, (Reported) Potassium Chloride 10 Meq Tablet.er, 10 MEQ PO DAILY, (Reported) Ramipril 2.5 Mg Capsule, 2.5 MG PO HS, (Reported) Patient Home Medication List Home Medication List Reviewed: Yes Constitutional: no symptoms reported Respiratory: no symptoms reported Cardiovascular: no symptoms reported Musculoskeletal: see HPI Skin: see HPI Psychiatric/Neurological: Denies Numbness, Denies Paresthesia, Denies Tingling , Denies Weakness All Other Systems Reviewed Negative Unless Noted: Yes (Negative excepted noted.) Past Lyzmdgv-Zlcutm-Vlyovr Hx Patient Social History Alcohol Use: Denies Use Recreational Drug Use: No Smoking Status: Current Everyday Smoker Type Used: Cigarettes Former Smoker, Quit: Mar 06, 1999 2nd Hand Smoke Exposure: No Recent Foreign Travel: No Contact w/Someone Who Travel: No Recent Infectious Disease Expo: No Recent Hopitalizations: Yes Immunizations Up To Date Tetanus Booster (TDap): More than 5yrs Date of Pneumonia Vaccine: Mar 19, 2012 Date of Influenza Vaccine: Mar 19, 2012 Surgeries History of Surgeries: Yes Surgeries: Breast, Coronary Stent, Gallbladder, Hysterectomy Respiratory History of Respiratory Disorde: Yes Cardiovascular History of Cardiac Disorders: Yes Cardiac Disorders: Coronary Artery Disease, Heart Attack, High Cholesterol, Hypertension Neurological History of Neurological Disord: No Reproductive System Hx Reproductive Disorders: No Sexually Transmitted Disease: No HIV/AIDS: No Gastrointestinal History of Gastrointestinal Di: No Gastrointestinal Disorders: Colitis, Irritable Bowel Musculoskeletal History of Musculoskeletal Dis: No (hip and back pain, restless legs) Musculoskeletal Disorders: Chronic Back Pain Endocrine History of Endocrine Disorders: Yes (RADIOACTIVE TREATMENT FOR THYROID) Endocrine Disorders: Hypothyroidsim HEENT HEENT Disorders: Cataract Loss of Vision: Denies Hearing Impairment: Denies 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 Psychosocial History of Psychiatric Problem: Yes Behavioral Health Disorders: Anxiety Integumentary History of Skin or Integumenta: No Blood Transfusions History of Blood Disorders: No Adverse Reaction to a Blood Tr: No Reviewed Nursing Assessment Reviewed/Agree w Nursing PMH: Yes Family Medical History Significant Family History: Heart Disease, COPD, Hypertension Family Medial History: Arthritis G8 SISTER Headache disorder 19 FATHER G8 SISTER Myocardial infarction 19 FATHER Neoplasm 19 MOTHER Respiratory disorder G8 SISTER Thyroid disease G8 SISTER G8 SISTER G8 SISTER No Family History of: AIDS Abdominal aortic aneurysm [place]'s disease Alcoholism Alzheimer's disease Aphasia Asthma Cancer of mouth Cardiovascular disease Cataracts Colon cancer Completed stroke Congenital disease Congenital heart disease Coronary thrombosis Cystic fibrosis Deafness or hearing loss Dementia Diabetes mellitus Drug abuse Dysphasia Fibrocystic disease of breast Gastroenteritis Glaucoma Hypercholesterolemia Hypertension Infertility Kidney disease Not obtainable due to adoption Osteoporosis Parkinson's disease Prostate cancer Psychosocial problem Seizure disorder Severe allergy Tuberculosis Visual disorder Physical Exam Vital Signs Vital Signs - First Documented 08/19/17 08/19/17 09:33 14:08 Temp 97.5 Pulse 61 Resp 18 B/P (MAP) 136/78 (97) Pulse Ox 98 O2 Delivery Room Air Capillary Refill : Less Than 3 Seconds General Appearance: No Apparent Distress, WD/WN Respiratory: Lungs Clear, Normal Breath Sounds, No Accessory Muscle Use, No Respiratory Distress Cardiovascular: Regular Rate, Rhythm, No Murmur, Normal Peripheral Pulses Extremity: Normal Capillary Refill, Normal Range of Motion, Other (1 cm vertical laceration of the anterior distal rt 4th finger with exposed subcutaneous tissue. No active bleeding noted. Positive soft tissue tenderness noted.) Neurologic/Psychiatric: Alert, Oriented x3, No Motor/Sensory Deficits, Normal Mood/Affect Skin: Normal Color, Warm/Dry, Other (1 cm vertical laceration of the anterior distal rt 4th finger with exposed subcutaneous tissue. No active bleeding noted.) Progress/Results/Core Measures Suspected Sepsis Recent Fever Within 48 Hours: No Infection Criteria Present: None New/Unexplained Altered Menta: No Sepsis Screen: No Definite Risk Sepsis Diagnosis: SIRS Temperature:97.5 Pulse: 61 Respiratory Rate: 18 Blood Pressure 136 /78 Mean: 97 Results/Orders My Orders Orders - TOYA VU Rabies Vaccine Human Dipl Cell (Rabavert (08/19/17 11:45) Dipht,Pertuss(Acell),Tet Adult (Boostrix (08/19/17 11:45) Rabies Immune Globulin/Pf Inj (Hyperrab (08/19/17 11:45) Lidocaine 1% (Xylocaine 1%) (08/19/17 11:45) Medications Given in ED Vital Signs/I&O Vital Sign - Last 12Hours 08/19/17 14:08 Pulse 75 Resp 18 B/P (MAP) 136/45 Pulse Ox 98 O2 Delivery Room Air Capillary Refill : Less Than 3 Seconds Blood Pressure Mean: 97 Departure Communication (Admissions) Progress Notes 1 cc of rabies immune globulin injected into the periwound area. 11 cc's then injected into the right deltoid. (total amount injected= 1900 units). patient tolerated the procedure well. I discussed with the patient that we do not want to close the wound tightly. Wound scrubbed with chlorhexidine and sterile saline. Wound edges loosely reapproximated using Mastisol and Steri-Strips due to the subcutaneous tissue protruding from the wound. Proceed with discharge to home. Patient given orders for outpatient rabies vaccine to be given on , 08/26/17, and 09/09/17. Impression Impression: Primary Impression: Dog bite Qualified Codes: W54.0XXA - Bitten by dog, initial encounter Disposition: HOME, SELF-CARE Condition: Improved Departure-Patient Inst. Decision time for Depature: 13:37 Referrals: JONE MAYO MD (PCP/Family) Primary Care Physician Patient Instructions: Animal Bites (DC) Add. Discharge Instructions: All discharge instructions reviewed with patient and/or family. Voiced understanding. Medications as instructed. Shower with antibacterial soap beginning tomorrow morning. Ice pack for 20 minute intervals as needed for pain and swelling. Follow-up with Dr. Mayo as an outpatient for recheck this week, call for appointment time Sunday. Return to the emergency department for worsened pain, redness, fever, drainage, or any other concerns. Scripts Levofloxacin (Levaquin) 500 Mg Tablet 500 MG PO DAILY, #7 TAB 0 Refills Prov: TOYA VU 08/19/17 Clindamycin HCl (Clindamycin HCl) 300 Mg Capsule 300 MG PO QID, #28 CAP 0 Refills Prov: TOYA VU 08/19/17 Hydrocodone Bit/Acetaminophen (Hydrocodone/Acetaminophen 5/325mg Tablet) 1 Tab Tab 1 TAB PO Q4H Y for pain, #20 TAB 0 Refills Prov: TOYA VU 08/19/17 TOYA VU Aug 19, 2017 11:26
[2017-08-19] MEDS ORDERED: RABIES VACCINE HUMAN DIPL CELL 1 ML/2.5 UNITS SYR IM ONE (11:45)
[2017-08-19] MEDS ORDERED: LIDOCAINE 1% INJ 50 ML (XYLOCAINE) VIAL IJ ONE (11:45)
[2017-08-19] MEDS ORDERED: TETANUS,DIPTH,PERTUSS P/F (BOOSTRIX) 0.5 ML VIAL IM STA (11:45)
[2017-08-19] MEDS ORDERED: RABIES IMMUNE GLOBULIN 150 UNIT/ML 10 ML (HYPERRAB) IM ONE (11:45)
[2017-08-19] MEDS ORDERED: LEVO500T2 PO (13:43)
[2017-08-19] MEDS ORDERED: ACHD5005 PO (13:43)
[2017-08-19] MEDS ORDERED: CLIN300C11 PO (13:43)
[2017-08-19 14:08] VITALS: BP 136/45
== END 2017-08-19 14:15 | disposition home or self-care (01) ==
LOC: EDUNIT# 09:26 → ER 09:28
DX: S61.214A Laceration without foreign body of right ring finger without damage to nail, initial encounter (principal); I25.10 Atherosclerotic heart disease of native coronary artery without angina pectoris; I25.2 Old myocardial infarction; E78.00 Pure hypercholesterolemia, unspecified; I10 Essential (primary) hypertension; E03.9 Hypothyroidism, unspecified; Z23 Encounter for immunization; Z82.49 Family history of ischemic heart disease and other diseases of the circulatory system; Z90.12 Acquired absence of left breast and nipple; Z87.19 Personal history of other diseases of the digestive system; Z88.0 Allergy status to penicillin; Z79.01 Long term (current) use of anticoagulants; Z79.82 Long term (current) use of aspirin; Z87.891 Personal history of nicotine dependence; Z95.5 Presence of coronary angioplasty implant and graft; Z90.710 Acquired absence of both cervix and uterus; W54.0XXA Bitten by dog, initial encounter
CPT/HCPCS: 90376; 90471; 90675; 90715; 96372

== ENCOUNTER 2017-10-02 13:02 | Day surgery (SDC) | payer MEDICARE ==
[~2017-10-02] VITALS: Ht 162.6 cm; Wt 96.6 kg
[2017-10-02] VITALS (7 sets, daily range): BP systolic 100–179; BP diastolic 55–92
[~2017-10-02 13:02] MED LIST changes: +ACHD5005 PO; +CLIN300C11 PO; +LEVO500T2 PO
[2017-10-02] MEDS ORDERED: NS IV 1000 ML 1,000 ML ONE (13:16)
[2017-10-02] MEDS ORDERED: NS IV 1000 ML 1,000 ML IV SCH (13:30)
[2017-10-02 13:48] LABS: HEMOGLOBIN 14.5 G/DL (11.5-16.0); MEAN PLATELET VOLUME 9.6 FL (7.4-10.4); RED BLOOD COUNT 4.24 10^6/uL (4.35-5.85); RED CELL DISTRIBUTION WIDTH 13.3 % (10.0-14.5); WHITE BLOOD COUNT 5.9 10^3/uL (4.3-11.0)
--- NOTE | 2017-10-02 13:51 | Cardiac Procedure Note-CS/ASA ---
Pre-Procedure Note Pre-Op Procedure Note H&P Reviewed The H&P was reviewed, patient examined and no changes noted. Date H&P Reviewed: October 02, 2017 Time H&P Reviewed: 13:51 Conscious Sedation Pre-Proced Time Reviewed: 13:51 ASA Class: 3 Airway Mallampati Classification: ([place] appropriate class) I. II. III, IV Lungs Heart ASA score ASA 1: a normal healthy patient ASA 2: a patient with a mild systemic disease (mid diabetes, controlled hypertension, obesity ASA 3: a patient with a severe systemic disease that limits activity (angina , COPD, prior Myocardial infarction) ASA 4: a patient with an incapacitating disease that is a constant threat to life (CHF, renal failure) ASA 5: a moribund patient not expected to survive 24 hrs. (ruptured aneurysm) ASA 6: a declared brain patient whose organs are being harvested. For emergent operations, add the letter E after the classification Grade 2 Sedation Plan: Analgesia, Amnesia, Plan communicated to team members, Discussed options with patient/fam, Discussed risks with patient/fam Note The patient is an appropriate candidate to undergo the planned procedure, sedation, and anesthesia. The patient immediately re-assessed prior to indication. MICHELLE CASH MD FACP FAC CCDS October 02, 2017 13:51
[2017-10-02 14:01] LABS: INR 1.4 (0.8-1.4); PROTHROMBIN TIME PATIENT 16.9 SEC (12.2-14.7)
[2017-10-02] MEDS ORDERED: FLEC100T PO (14:04)
[2017-10-02] MEDS ORDERED: TR1C15 TP (14:04)
[2017-10-02] MEDS ORDERED: TEMA15CA PO (14:04)
[2017-10-02] MEDS ORDERED: FISH1CAP15 PO (14:04)
[2017-10-02] MEDS ORDERED: MELA1TAB15 PO (14:04)
[2017-10-02 14:11] LABS: ALBUMIN 4.3 GM/DL (3.2-4.5); BILIRUBIN,TOTAL 0.8 MG/DL (0.1-1.0); CALCIUM 9.4 MG/DL (8.5-10.1); CREATININE SERUM 1.32 MG/DL (0.60-1.30); POTASSIUM 3.9 MMOL/L (3.6-5.0); TOTAL PROTEIN 6.8 GM/DL (6.4-8.2)
[2017-10-02] MEDS ORDERED: proPOfol 200 MG/20 ML (DIPRIVAN) VIAL IV ONE ×2 (14:20→14:57)
--- NOTE | 2017-10-02 15:05 | Anesthesia-General Post-Op ---
MAC Patient Condition Mental Status/LOC: Same as Preop Cardiovascular: Satisfactory Nausea/Vomiting: Absent Respiratory: Satisfactory Pain: Controlled Complications: Absent Post Op Complications Complications None Follow Up Care/Instructions Patient Instructions None needed. Anesthesiology Discharge Order Discharge Order Patient is doing well, no complaints, stable vital signs, no apparent adverse anesthesia problems. ALYSSA GUILLORY DO October 02, 2017 15:05
--- NOTE | 2017-10-02 15:08 | Anesthesia-Procedure Note ---
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 Pt S/E and a brief history taken. She was given propofol 50 mg IV and VSS throughout the procedure , including + EtCO2. Pt tolerated the procedure well. Stop Time: 14:55 Postprocedural Diagnosis: Sinus Rhythm OSVALDO/Cardioversion Anesthesia Type: MAC/sedation ASA Class: 3 ALYSSA GUILLORY DO October 02, 2017 15:08
[2017-10-02] MEDS ORDERED: CARV3.122 PO (15:26)
--- NOTE | 2017-10-02 15:27 | Discharge Inst-Cardiology ---
Discharge Inst-Cardiac Discharge Medications New Medications: Carvedilol (Carvedilol) 3.125 Mg Tablet 3.125 MG PO BID, #60 TAB 5 Refills Continued Medications: Acetaminophen (Tylenol Extra Strength) 500 Mg Tablet 1000 MG PO HS, TAB TAKES 2 (500MG) TABLETS Apixaban (Eliquis) 5 Mg Tablet 5 MG PO BID, TAB Aspirin (Aspirin EC) 81 Mg Tablet.dr 81 MG PO Q48H, TAB Fish Oil/Dha/Epa (Fish Oil 1,200 mg Fish Oil) 1 Each Capsule 1200 MG PO BID, CAP Flecainide Acetate (Flecainide Acetate) 100 Mg Tablet 100 MG PO Q12H, TAB Furosemide (Furosemide) 40 Mg Tablet 40 MG PO DAILY, TAB Levothyroxine Sodium (Levothyroxine Sodium) 100 Mcg Tablet 100 MCG PO DAILY, TAB Melatonin/Pyridoxine (Melatonin 5 mg Tablet) 1 Each Tablet 5 MG PO HS, TAB Pantoprazole Sodium (Pantoprazole Sodium) 40 Mg Tablet.dr 40 MG PO DAILY, TAB Potassium Chloride (Potassium Chloride) 10 Meq Tablet.er 10 MEQ PO DAILY, TAB Temazepam (Temazepam) 15 Mg Capsule 15 MG PO HS Triamcinolone Acet (Triamcinolone Acetonide 0.1% Cream) 15 Gm Cr TP DAILY Discontinued Medications: Carvedilol (Carvedilol) 6.25 Mg Tablet 6.25 MG PO BID, TAB Patient Instructions Patient Instructions: F/u with Dr Wells in one week MICHELLE WELLS MD FACP FAC CCDS October 02, 2017 15:27
--- NOTE | 2017-10-03 02:35 | OPERATIVE REPORT ---
DATE OF SERVICE: 10/02/2017 PREOPERATIVE DIAGNOSIS: Atrial fibrillation. POSTOPERATIVE DIAGNOSIS: Sinus rhythm with premature atrial contractions PROCEDURE: External electrical cardioversion The patient is a 72-year-old lady with chronic atrial fibrillation for which she has been symptomatic. She is on chronic anticoagulation, which she has continued to take without any interruption. External electrical cardioversion was carried out today after having obtained an informed consent. Short-acting anesthesia was delivered by the anesthesiologist. 120 joules of synchronized biphasic shock was delivered through external patches, which restored sinus rhythm with premature atrial contractions. Job ID: [id number] DocumentID: [id number] Dictated Date: 10/02/2017 15:04:51 Medicare Sales Executive Date: 10/03/2017 02:34:34 Dictated By: MICHELLE CASH MD, MA, FACP, FACC, MTDD
== END 2017-10-02 15:50 | disposition home or self-care (01) ==
LOC: CATH 13:02
PROVIDERS: ATTEND Internal Medicine Cardiovascular Disease
DX: I48.2 Chronic atrial fibrillation (principal); I50.31 Acute diastolic (congestive) heart failure; I25.10 Atherosclerotic heart disease of native coronary artery without angina pectoris; E78.5 Hyperlipidemia, unspecified; I08.1 Rheumatic disorders of both mitral and tricuspid valves; E03.9 Hypothyroidism, unspecified; R73.01 Impaired fasting glucose; I25.2 Old myocardial infarction; E66.9 Obesity, unspecified; Z68.36 Body mass index [BMI] 36.0-36.9, adult; Z95.5 Presence of coronary angioplasty implant and graft; Z87.891 Personal history of nicotine dependence; Z79.01 Long term (current) use of anticoagulants; Z79.82 Long term (current) use of aspirin; Z79.899 Other long term (current) drug therapy; Z85.3 Personal history of malignant neoplasm of breast; Z90.12 Acquired absence of left breast and nipple
CPT/HCPCS: 36415; 80053; 80061; 85027; 85610; 85730; 87081; 92960; 93005

== ENCOUNTER 2017-10-15 16:18 | Outpatient (CLI) | payer MEDICARE ==
[~2017-10-15 16:18] MED LIST changes: +CARV3.122 PO; +FISH1CAP15 PO; +FLEC100T PO; +MELA1TAB15 PO; +TEMA15CA PO; +TR1C15 TP
== END 2017-10-15 16:40 | disposition home or self-care (01) ==
LOC: SLEEP 16:18
PROVIDERS: ATTEND Nurse Practitioner
DX: G47.33 Obstructive sleep apnea (adult) (pediatric) (principal)

== ENCOUNTER → 2017-10-25 | Outpatient (CLI) | payer MEDICARE ==
[2017-10-25 09:47] LABS: BASOPHILS # (AUTO) 0.1 10^3/uL (0.0-0.1); BASOPHILS % (AUTO) 1 % (0-10); EOSINOPHILS # (AUTO) 0.2 10^3/uL (0.0-0.3); EOSINOPHILS % (AUTO) 5 % (0-10); HEMATOCRIT 40 % (35-52); HEMOGLOBIN 14.5 G/DL (11.5-16.0); LYMPHOCYTES % (AUTO) 22 % (12-44); MEAN CORPUSCULAR HEMOGLOBIN 36 PG (25-34); MEAN CORPUSCULAR HGB CONC 36 G/DL (32-36); MEAN CORPUSCULAR VOLUME 98 FL (80-99); MONOCYTES # (AUTO) 0.4 X 10^3 (0.0-1.0); MONOCYTES % (AUTO) 8 % (0-12); NEUTROPHILS # (AUTO) 3.1 X 10^3 (1.8-7.8); NEUTROPHILS % (AUTO) 65 % (42-75); PLATELET COUNT 299 10^3/uL (130-400); RED BLOOD COUNT 4.08 10^6/uL (4.35-5.85); RED CELL DISTRIBUTION WIDTH 13.4 % (10.0-14.5); WHITE BLOOD COUNT 4.8 10^3/uL (4.3-11.0)
[2017-10-25 10:06] LABS: ALBUMIN 4.1 GM/DL (3.2-4.5); BILIRUBIN,TOTAL 0.8 MG/DL (0.1-1.0); CALCIUM 9.5 MG/DL (8.5-10.1); CREATININE SERUM 1.31 MG/DL (0.60-1.30); TOTAL PROTEIN 6.7 GM/DL (6.4-8.2)
== END ==
LOC: ONC 09:15
PROVIDERS: ATTEND Internal Medicine Hematology & Oncology
DX: Z09 Encounter for follow-up examination after completed treatment for conditions other than malignant neoplasm (principal); Z85.3 Personal history of malignant neoplasm of breast; E03.9 Hypothyroidism, unspecified; I48.0 Paroxysmal atrial fibrillation; E11.9 Type 2 diabetes mellitus without complications; E78.5 Hyperlipidemia, unspecified; I25.2 Old myocardial infarction; I25.10 Atherosclerotic heart disease of native coronary artery without angina pectoris; H40.9 Unspecified glaucoma; Z90.12 Acquired absence of left breast and nipple; Z79.01 Long term (current) use of anticoagulants
CPT/HCPCS: 80053; 84443; 85025; 99213

== ENCOUNTER → 2017-10-25 | Outpatient (CLI) | payer MEDICARE ==
--- NOTE | 2017-10-25 12:05 | Diagnostic Imaging Report ---
INDICATION: Routine screening. COMPARISON is made with prior mammogram from 10/16/2016 and 10/14/2015. 2-D and 3-D unilateral right screening mammography was performed with Computer Aided Detection (CAD) system. FINDINGS: Scattered fibroglandular densities are identified in the right breast. No mass or malignant appearing microcalcifications are seen. There are benign parenchymal and vascular calcifications. The right axilla is unremarkable. IMPRESSION: BI-RADS category 2. No mammographic features suspicious for malignancy are identified. ACR BI-RADS Category 2: Benign findings. Result letter will be mailed to the patient. Note: At least 10% of breast cancer is not imaged by mammography. Dictated by: Dictated on workstation # [id number]
== END ==
LOC: RAD 10:32
PROVIDERS: ATTEND Internal Medicine Hematology & Oncology
DX: Z12.31 Encounter for screening mammogram for malignant neoplasm of breast (principal)

== ENCOUNTER → 2017-10-31 | Outpatient (CLI) | payer MEDICARE ==
[2017-10-31 15:07] LABS: BILIRUBIN,URINE NEGATIVE (NEGATIVE); CLARITY,URINE CLEAR; COLOR,URINE YELLOW; GLUCOSE, URINE (UA) NEGATIVE (NEGATIVE); KETONES,URINE NEGATIVE (NEGATIVE); LEUKOCYTE ESTERASE ,URINE 2+ (NEGATIVE); NITRITE,URINE NEGATIVE (NEGATIVE); PH,URINE 7 (5-9); PROTEIN,URINE NEGATIVE (NEGATIVE); UROBILINOGEN,URINE NORMAL (NORMAL)
[2017-10-31 15:17] LABS: BACTERIA,URINE FEW /HPF
[2017-10-31 15:18] LABS: AMORPHOUS SEDIMENT,UR FEW AMOR URATES /LPF
== END ==
LOC: LAB 14:50
PROVIDERS: ATTEND Nurse Practitioner Family
DX: R30.0 Dysuria (principal)
CPT/HCPCS: 81000; 87077; 87088

== ENCOUNTER 2017-12-24 13:46 | Outpatient (RCR) | payer MEDICARE ==
[~2017-12-24 13:46] MED LIST changes: -AMIO200T2 PO; +AMIO200T4 PO; +TRAZ-189 PO; -TRAZ-28 PO
== END 2018-01-09 | disposition home or self-care (01) ==
LOC: CR3 13:46
PROVIDERS: ATTEND Internal Medicine Cardiovascular Disease
DX: Z29.8 Encounter for other specified prophylactic measures (principal)

== ENCOUNTER 2018-02-11 15:13 | Outpatient (RCR) | payer MEDICARE ==
[~2018-02-11 15:13] MED LIST changes: -RAMI2.5C PO; +RAMI2.5C2 PO
== END 2018-02-20 | disposition home or self-care (01) ==
LOC: CR3 15:13
PROVIDERS: ATTEND Internal Medicine Cardiovascular Disease
DX: Z29.8 Encounter for other specified prophylactic measures (principal)

== ENCOUNTER 2018-03-20 14:39 | Outpatient (RCR) | payer MEDICARE | END 2018-03-24 | disposition home or self-care (01) | LOC: CR3 14:39 | PROVIDERS: ATTEND Internal Medicine Cardiovascular Disease | DX: Z29.8 Encounter for other specified prophylactic measures (principal) ==

== ENCOUNTER → 2018-04-24 | Outpatient (RCR) | payer MEDICARE | END | disposition home or self-care (01) | LOC: CR3 03-25 13:00 | PROVIDERS: ATTEND Internal Medicine Cardiovascular Disease | DX: Z29.8 Encounter for other specified prophylactic measures (principal) ==

== ENCOUNTER 2018-07-03 15:09 | Outpatient (RCR) | payer MEDICARE | END 2018-07-05 | disposition home or self-care (01) | LOC: CR3 15:09 | PROVIDERS: ATTEND Internal Medicine Cardiovascular Disease | DX: Z29.8 Encounter for other specified prophylactic measures (principal) ==

== ENCOUNTER 2018-07-17 03:43 | Emergency (ER) | payer MEDICARE ==
[~2018-07-17] VITALS: Ht 157.5 cm; Wt 94.8 kg
[2018-07-17] MEDS ORDERED: NITROGLYCERIN 0.4 MG SL TABS BTL 25'S SL ONE (03:54)
[2018-07-17] MEDS ORDERED: ASPIRIN 81 MG CHEW (CHILDREN'S ASA) ONE (03:54)
[2018-07-17] MEDS ORDERED: ASPIRIN 81 MG CHEW (CHILDREN'S ASA) PO ONE (04:00)
[2018-07-17] MEDS: NITROGLYCERIN 0.4 MG SL TABS BTL 25'S SL PRN ×2 (04:00→04:05)
[2018-07-17 04:07] LABS: BASOPHILS # (AUTO) 0.1 10^3/uL (0.0-0.1); BASOPHILS % (AUTO) 1 % (0-10); EOSINOPHILS # (AUTO) 0.4 10^3/uL (0.0-0.3); EOSINOPHILS % (AUTO) 6 % (0-10); HEMATOCRIT 43 % (35-52); HEMOGLOBIN 14.4 G/DL (11.5-16.0); LYMPHOCYTES # (AUTO) 1.8 X 10^3 (1.0-4.0); LYMPHOCYTES % (AUTO) 27 % (12-44); MEAN CORPUSCULAR HEMOGLOBIN 33 PG (25-34); MEAN CORPUSCULAR HGB CONC 33 G/DL (32-36); MEAN CORPUSCULAR VOLUME 98 FL (80-99); MEAN PLATELET VOLUME 9.5 FL (7.4-10.4); MONOCYTES # (AUTO) 0.5 X 10^3 (0.0-1.0); MONOCYTES % (AUTO) 8 % (0-12); NEUTROPHILS % (AUTO) 59 % (42-75); PLATELET COUNT 300 10^3/uL (130-400); RED CELL DISTRIBUTION WIDTH 13.7 % (10.0-14.5); WHITE BLOOD COUNT 6.8 10^3/uL (4.3-11.0)
[2018-07-17 04:10] LABS: PROTHROMBIN TIME PATIENT 12.8 SEC (12.2-14.7)
[2018-07-17 04:23] LABS: ALANINE AMINOTRANSFERASE 18 U/L (0-55); ALBUMIN 4.3 GM/DL (3.2-4.5); ALKALINE PHOSPHATASE 120 U/L (40-136); BILIRUBIN,TOTAL 0.6 MG/DL (0.1-1.0); BUN/CREATININE RATIO 21; CALCIUM 9.4 MG/DL (8.5-10.1); CARBON DIOXIDE 27 MMOL/L (21-32); CHLORIDE 103 MMOL/L (98-107); CREATININE SERUM 1.18 MG/DL (0.60-1.30); GFR ESTIMATED 45; GLUCOSE 116 MG/DL (70-105); MAGNESIUM 2.4 MG/DL (1.8-2.4); POTASSIUM 3.5 MMOL/L (3.6-5.0); SODIUM 140 MMOL/L (135-145); TOTAL PROTEIN 7.1 GM/DL (6.4-8.2)
[2018-07-17 04:34] LABS: MYOGLOBIN SERUM 34.9 NG/ML (10.0-92.0)
[2018-07-17 04:47] LABS: FREE T4 (FREE THYROXINE) 1.58 NG/DL (0.70-1.48)
--- NOTE | 2018-07-17 05:00 | NUR ---
PT AMBULATES TO THE RESTROOM X1 ASSIST WITH STAFF, DENIES CHEST PAIN OR SOB, NO S/S OF DISTRESS
--- NOTE | 2018-07-17 06:11 | Diagnostic Imaging Report ---
INDICATION: Chest pain. COMPARISON: 12/08/2013. FINDINGS: Single view of the chest demonstrates stable cardiac enlargement. Lungs are otherwise clear. There is no pneumothorax. Osseous structures are age-appropriate. IMPRESSION: Stable cardiac enlargement without pulmonary edema or infiltrate. Dictated by: Dictated on workstation # [id number]
--- NOTE | 2018-07-17 06:18 | ED Chest Pain ---
General Chief Complaint: Chest Pain Stated Complaint: CP Nursing Triage Note: PT STATES SHE BEGAN TO EXPERIENCE MID STERNAL CHEST PAIN THAT WOKE HER UP FROM SLEEP AT 0300 TODAY. 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 Nursing Sepsis Screen: No Definite Risk Source: patient Exam Limitations: no limitations (ROBERTO SILVA MD) History of Present Illness Date Seen by Provider: Jul 17, 2018 Time Seen by Provider: 03:44 Initial Comments This 73-year-old woman presents to the emergency room with central chest pain that woke her from sleep at approximately 03:00. Pain radiated to the jaw briefly but that radiation is now gone. She also experienced dyspnea on exertion. She does have a history of coronary artery disease and ID. Dr. Wells is her supervisor carton and can supply. She states her pain was 8/10 at its worst and is 4 out of 10 now. Patient has a history of atrial fibrillation. She is on antiarrhythmics and Eliquis. (ROBERTO SILVA MD) Allergies and Home Medications Allergies Coded Allergies: Penicillins (Verified Allergy, Unknown, 05/08/07) Home Medications Acetaminophen 500 Mg Tablet, 1,000 MG PO HS, (Reported) TAKES 2 (500MG) TABLETS Apixaban 5 Mg Tablet, 5 MG PO BID, (Reported) Aspirin 81 Mg Tablet.dr, 81 MG PO Q48H, (Reported) Carvedilol 3.125 Mg Tablet, 3.125 MG PO BID Prescribed by: MICHELLE WELLS on 10/02/17 1526 Fish Oil/Dha/Epa 1 Each Capsule, 1,200 MG PO BID, (Reported) Flecainide Acetate 100 Mg Tablet, 100 MG PO Q12H, (Reported) Furosemide 40 Mg Tablet, 40 MG PO DAILY, (Reported) Levothyroxine Sodium 100 Mcg Tablet, 100 MCG PO DAILY, (Reported) Melatonin/Pyridoxine 1 Each Tablet, 5 MG PO HS, (Reported) Pantoprazole Sodium 40 Mg Tablet.dr, 40 MG PO DAILY, (Reported) Potassium Chloride 10 Meq Tablet.er, 10 MEQ PO DAILY, (Reported) Temazepam 15 Mg Capsule, 15 MG PO HS, (Reported) Triamcinolone Acet 15 Gm Cr, TP DAILY, (Reported) Patient Home Medication List Home Medication List Reviewed: Yes (ROBERTO SILVA MD) Review of Systems Review of Systems Constitutional: no symptoms reported EENTM: No Symptoms Reported Respiratory: See HPI Cardiovascular: See HPI Gastrointestinal: No Symptoms Reported Genitourinary: No Symptoms Reported Musculoskeletal: no symptoms reported Skin: no symptoms reported Psychiatric/Neurological: No Symptoms Reported Endocrine: No Symptoms Reported Hematologic/Lymphatic: No Symptoms Reported (ROBERTO SILVA MD) Past Nvnjnsy-Tdwzov-Iohbst Hx Past Med/Social Hx: Reviewed and Corrections made (ROBERTO SILVA MD) Patient Social History Alcohol Use: Denies Use Recreational Drug Use: No Smoking Status: Never a Smoker Type Used: Cigarettes Former Smoker, Quit: Mar 06, 1999 2nd Hand Smoke Exposure: No Recent Foreign Travel: No Contact w/Someone Who Travel: No Recent Infectious Disease Expo: No Recent Hopitalizations: Yes (ROBERTO SILVA MD) Immunizations Up To Date Tetanus Booster (TDap): More than 5yrs Date of Pneumonia Vaccine: Mar 19, 2012 Date of Influenza Vaccine: Mar 19, 2012 (ROBERTO SILVA MD) Past Medical History Surgeries: Yes Breast, Coronary Stent, Gallbladder, Hysterectomy Respiratory: Yes Cardiac: Yes (ID IN 2010) Coronary Artery Disease, Heart Attack, High Cholesterol, Hypertension Neurological: No : No Reproductive Disorders: No 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 Sexually Transmitted Disease: No HIV/AIDS: No Gastrointestinal: Yes Colitis, Irritable Bowel Musculoskeletal: No (hip and back pain, restless legs) Chronic Back Pain Endocrine: Yes (RADIOACTIVE TREATMENT FOR THYROID) Hypothyroidsim Cataract Loss of Vision: Denies Hearing Impairment: Denies Cancer: Yes (LEFT MASTECTOMY.) Breast Psychosocial: Yes Anxiety Integumentary: No Blood Disorders: No Adverse Reaction/Blood Tranf: No (ROBERTO SILVA MD) Family Medical History Reviewed Nursing Family Hx (ROBERTO SILVA MD) Arthritis G8 SISTER Headache disorder 19 FATHER G8 SISTER Myocardial infarction 19 FATHER Neoplasm 19 MOTHER Respiratory disorder G8 SISTER Thyroid disease G8 SISTER G8 SISTER G8 SISTER No Family History of: AIDS Abdominal aortic aneurysm Chivo's disease Alcoholism Alzheimer's disease Aphasia Asthma Cancer of mouth Cardiovascular disease Cataracts Colon cancer Completed stroke Congenital disease Congenital heart disease Coronary thrombosis Cystic fibrosis Deafness or hearing loss Dementia Diabetes mellitus Drug abuse Dysphasia Fibrocystic disease of breast Gastroenteritis Glaucoma Hypercholesterolemia Hypertension Infertility Kidney disease Not obtainable due to adoption Osteoporosis Parkinson's disease Prostate cancer Psychosocial problem Seizure disorder Severe allergy Tuberculosis Visual disorder Heart Disease, COPD, Hypertension (ROBERTO SILVA MD) Physical Exam Vital Signs Vital Signs - First Documented (JOSE MARIA ORANTES) Vital Signs Capillary Refill : Less Than 3 Seconds (ROBERTO SILVA MD) Height, Weight, BMI Height: 5'2.00" Weight: 209lbs. 0.0oz. 94.235596rd; 36.6 BMI Method:Stated General Appearance: No Apparent Distress, WD/WN, Obese HEENT: PERRL/EOMI, Normal ENT Inspection Neck: Normal Inspection Respiratory: Chest Non Tender, Lungs Clear, Normal Breath Sounds, No Accessory Muscle Use, No Respiratory Distress Cardiovascular: Regular Rate, Rhythm, No Edema, No Murmur Gastrointestinal: Normal Bowel Sounds, Non Tender, Soft Extremity: Normal Inspection, No Pedal Edema Neurologic/Psychiatric: Alert, Oriented x3, No Motor/Sensory Deficits, Normal Mood/Affect, emergency medcl emt II-XII Norm as Tested Skin: Normal Color, Warm/Dry (ROBERTO SILVA MD) Progress/Results/Core Measures Results/Orders Lab Results Laboratory Tests Test 07/17/18 03:47 07/17/18 07:24 Range/Units White Blood Count 6.8 4.3-11.0 10^3/uL Red Blood Count 4.40 4.35-5.85 10^6/uL Hemoglobin 14.4 11.5-16.0 G/DL Hematocrit 43 35-52 % Mean Corpuscular Volume 98 80-99 FL Mean Corpuscular Hemoglobin 33 25-34 PG Mean Corpuscular Hemoglobin Concent 33 32-36 G/DL Red Cell Distribution Width 13.7 10.0-14.5 % Platelet Count 300 130-400 10^3/uL Mean Platelet Volume 9.5 7.4-10.4 FL Neutrophils (%) (Auto) 59 42-75 % Lymphocytes (%) (Auto) 27 12-44 % Monocytes (%) (Auto) 8 0-12 % Eosinophils (%) (Auto) 6 0-10 % Basophils (%) (Auto) 1 0-10 % Neutrophils # (Auto) 4.0 1.8-7.8 X 10^3 Lymphocytes # (Auto) 1.8 1.0-4.0 X 10^3 Monocytes # (Auto) 0.5 0.0-1.0 X 10^3 Eosinophils # (Auto) 0.4 H 0.0-0.3 10^3/uL Basophils # (Auto) 0.1 0.0-0.1 10^3/uL Prothrombin Time 12.8 12.2-14.7 SEC INR Comment 1.0 0.8-1.4 Activated Partial Thromboplast Time 32 24-35 SEC Sodium Level 140 135-145 MMOL/L Potassium Level 3.5 L 3.6-5.0 MMOL/L Chloride Level 103 98-107 MMOL/L Carbon Dioxide Level 27 21-32 MMOL/L Anion Gap 10 5-14 MMOL/L Blood Urea Nitrogen 25 H 7-18 MG/DL Creatinine 1.18 0.60-1.30 MG/DL Estimat Glomerular Filtration Rate 45 BUN/Creatinine Ratio 21 Glucose Level 116 H 70-105 MG/DL Calcium Level 9.4 8.5-10.1 MG/DL Corrected Calcium 9.2 8.5-10.1 MG/DL Magnesium Level 2.4 1.8-2.4 MG/DL Total Bilirubin 0.6 0.1-1.0 MG/DL Aspartate Amino Transf (AST/SGOT) 21 5-34 U/L Alanine Aminotransferase (ALT/SGPT) 18 0-55 U/L Alkaline Phosphatase 120 40-136 U/L Myoglobin 34.9 10.0-92.0 NG/ML Troponin I < 0.028 < 0.028 <0.028 NG/ML Total Protein 7.1 6.4-8.2 GM/DL Albumin 4.3 3.2-4.5 GM/DL Thyroid Stimulating Hormone (TSH) 4.82 0.35-4.94 UIU/ML Free Thyroxine 1.58 H 0.70-1.48 NG/DL (JOSE MARIA ORANTES) Medications Given in ED Current Medications Medications Dose Ordered Sig/Mayito Route Start Time Stop Time Status Last Admin Dose Admin Aspirin 324 mg ONCE ONCE PO 07/17/18 04:00 07/17/18 04:01 DC 07/17/18 04:00 324 MG Nitroglycerin 0.4 mg UD PRN SL 07/17/18 04:00 07/17/18 04:05 0.4 MG (JOSE MARIA ORANTES) Vital Signs/I&O 07/17/18 07/17/18 07/17/18 03:47 03:47 03:52 Temp 98.3 Pulse 70 Resp 18 B/P (MAP) 186/63 (104) Pulse Ox 96 96 O2 Delivery Room Air Room Air Room Air (JOSE MARIA ORANTES) Blood Pressure Mean: 104 Progress Progress Note : Time: 06:17 Progress Note Patient received aspirin and nitroglycerin. She was pain-free after the second nitroglycerin. She remains pain-free at this time. Care of this patient is being transferred to Dr. Orantes. A 4 hour troponin has been ordered for cardiac rule out. (ROBERTO SILVA MD) Progress Note : Time: 07:16 Progress Note Assume care of the patient at shift change. I agree with the above documented history and physical exam. Patient is resting comfortably without chest pain. Plan is to repeat a troponin at 0730 and if it is negative we'll allow the patient follow up this week with cardiology outpatient. 0840: Patient is still comfortable, pain-free and repeat troponin negative. Liver follow-up with supervisor carton and can supply the clinic this week. (JOSE MARIA ORANTES) Initial ECG Impression Date: Jul 17, 2018 Initial ECG Impression Time: 03:47 Initial ECG Rate: 61 Initial ECG Rhythm: Normal Sinus Comment Sinus rhythm with no ST elevation or depression. First-degree A-V block by automated read. No axis deviation. (ROBERTO SILVA MD) Diagnostic Imaging Diagonstic Imaging: Xray Plain Films/CT/US/NM/MRI: chest Comments Chest x-ray viewed by me. Report not yet available. No acute abnormality appreciated. (ROBERTO SILVA MD) Departure Impression Primary Impression: Chest pain Qualified Codes: R07.9 - Chest pain, unspecified Additional Impression: Coronary artery disease Qualified Codes: I25.10 - Atherosclerotic heart disease of [place] coronary artery without angina pectoris Disposition: 01 HOME, SELF-CARE Condition: Stable Departure-Patient Inst. Decision time for Depature: 08:38 (JOSE MARIA ORANTES) Referrals: JONE PERSON MD (PCP/Family) Primary Care Physician MICHELLE WELLS MD FACP FACC CCDS Patient Instructions: Chest Pain (DC) Add. Discharge Instructions: Please call Dr. Wells's office and request an appointment in the next 1-2 days. If you begin to have chest pain again you may return to the nearest ER for reevaluation. All discharge instructions reviewed with patient and/or family. Voiced understanding. Copy Copies To 1: MICHELLE WELLS MD FACP FACC CCDS ROBERTO SILVA MD Jul 17, 2018 06:17 JOSE MARIA ORANTES Jul 17, 2018 07:21
--- NOTE | 2018-07-17 07:00 | NUR ---
REPORT GIVEN TO BRAYDEN LYNN
[2018-07-17 09:07] VITALS: BP 133/60
== END 2018-07-17 08:57 | disposition home or self-care (01) ==
LOC: EDUNIT# 03:43 → ER 03:45
DX: R07.89 Other chest pain (principal); I25.10 Atherosclerotic heart disease of native coronary artery without angina pectoris; E78.00 Pure hypercholesterolemia, unspecified; I10 Essential (primary) hypertension; I25.2 Old myocardial infarction; K58.9 Irritable bowel syndrome, unspecified; F41.9 Anxiety disorder, unspecified; E03.9 Hypothyroidism, unspecified; G25.81 Restless legs syndrome; I48.91 Unspecified atrial fibrillation; Z82.49 Family history of ischemic heart disease and other diseases of the circulatory system; Z88.0 Allergy status to penicillin; Z85.3 Personal history of malignant neoplasm of breast; Z79.01 Long term (current) use of anticoagulants; Z90.12 Acquired absence of left breast and nipple; Z79.82 Long term (current) use of aspirin; Z87.19 Personal history of other diseases of the digestive system; Z87.891 Personal history of nicotine dependence; Z95.5 Presence of coronary angioplasty implant and graft; Z90.710 Acquired absence of both cervix and uterus; Z98.890 Other specified postprocedural states
CPT/HCPCS: 36415; 71045; 80053; 83735; 83874; 84439; 84443; 84484; 85025; 85610; 85730; 93005; 93041

== ENCOUNTER 2018-08-07 13:11 | Outpatient (RCR) | payer MEDICARE | END 2018-08-09 | disposition home or self-care (01) | LOC: CR3 13:11 | PROVIDERS: ATTEND Internal Medicine Cardiovascular Disease | DX: Z29.8 Encounter for other specified prophylactic measures (principal) ==

== ENCOUNTER 2018-09-16 13:20 | Outpatient (RCR) | payer MEDICARE | END 2018-09-18 | disposition home or self-care (01) | LOC: CR3 13:20 | PROVIDERS: ATTEND Internal Medicine Cardiovascular Disease | DX: Z29.8 Encounter for other specified prophylactic measures (principal) ==

== ENCOUNTER 2018-10-14 13:13 | Outpatient (RCR) | payer MEDICARE ==
[~2018-10-14 13:13] MED LIST changes: -TRAZ-189 PO; +TRAZ-222 PO
== END 2018-10-25 | disposition home or self-care (01) ==
LOC: CR3 13:13
PROVIDERS: ATTEND Internal Medicine Cardiovascular Disease
DX: Z29.8 Encounter for other specified prophylactic measures (principal)

== ENCOUNTER → 2018-11-07 | Outpatient (CLI) | payer MEDICARE | LOC: ONC 09:51 | PROVIDERS: ATTEND Internal Medicine Hematology & Oncology | DX: Z09 Encounter for follow-up examination after completed treatment for conditions other than malignant neoplasm (principal); Z85.3 Personal history of malignant neoplasm of breast; E03.9 Hypothyroidism, unspecified; I48.0 Paroxysmal atrial fibrillation; E11.9 Type 2 diabetes mellitus without complications; E78.5 Hyperlipidemia, unspecified; I25.2 Old myocardial infarction; I25.10 Atherosclerotic heart disease of native coronary artery without angina pectoris; Z90.12 Acquired absence of left breast and nipple; Z79.01 Long term (current) use of anticoagulants | CPT/HCPCS: 99213 ==

== ENCOUNTER → 2018-11-11 | Outpatient (CLI) | payer MEDICARE ==
--- NOTE | 2018-11-11 11:28 | Diagnostic Imaging Report ---
INDICATION: Routine screening. COMPARISON: 10/25/2017 and 10/16/2016. TECHNIQUE: 2D and 3D unilateral right screening mammography was performed with CAD. FINDINGS: The right breast is heterogeneously dense, limiting the sensitivity of mammography. No mass or malignant appearing microcalcifications are seen. The right axilla is unremarkable. IMPRESSION: No mammographic features suspicious for malignancy are identified. ACR BI-RADS Category 1: Negative. Result letter will be mailed to the patient. Note: At least 10% of breast cancer is not imaged by mammography. Dictated by: Dictated on workstation # [id number]
== END ==
LOC: RAD 09:55
PROVIDERS: ATTEND Internal Medicine Hematology & Oncology
DX: Z12.31 Encounter for screening mammogram for malignant neoplasm of breast (principal); C50.919 Malignant neoplasm of unspecified site of unspecified female breast

== ENCOUNTER → 2018-12-04 | Outpatient (RCR) | payer MEDICARE | END | disposition home or self-care (01) | LOC: CR3 11-04 15:06 | PROVIDERS: ATTEND Internal Medicine Cardiovascular Disease | DX: Z29.8 Encounter for other specified prophylactic measures (principal) ==

== ENCOUNTER → 2019-01-08 | Outpatient (RCR) | payer MEDICARE | END | disposition home or self-care (01) | LOC: CR3 12-09 13:13 | PROVIDERS: ATTEND Internal Medicine Cardiovascular Disease | DX: Z29.8 Encounter for other specified prophylactic measures (principal) ==

== ENCOUNTER 2019-02-12 13:05 | Outpatient (RCR) | payer MEDICARE | END 2019-02-14 | disposition home or self-care (01) | LOC: CR3 13:05 | PROVIDERS: ATTEND Internal Medicine Cardiovascular Disease | DX: Z29.8 Encounter for other specified prophylactic measures (principal) ==

== ENCOUNTER 2019-03-10 13:42 | Outpatient (RCR) | payer MEDICARE | END 2019-03-19 | disposition home or self-care (01) | LOC: CR3 13:42 | PROVIDERS: ATTEND Internal Medicine Cardiovascular Disease | DX: Z29.8 Encounter for other specified prophylactic measures (principal) ==

== ENCOUNTER 2019-03-25 07:53 | Day surgery (SDC) | payer MEDICARE ==
[~2019-03-25] VITALS: Ht 162.6 cm; Wt 95.0 kg
[2019-03-25] VITALS (10 sets, daily range): BP systolic 143–182; BP diastolic 68–98
[2019-03-25] MEDS ORDERED: LIDOCAINE 1% INJ 20 ML 20 ML VIAL ONE ×2 (07:56→10:55)
[2019-03-25] MEDS ORDERED: NS IV 1000 ML 1,000 ML ONE (07:56)
[2019-03-25] MEDS ORDERED: HEParin (CATH LAB) 2,000 ML IV ONE (07:57)
[2019-03-25] MEDS ORDERED: NS IV 1000 ML 1,000 ML IV SCH ×2 (08:00→11:20)
[2019-03-25 08:27] LABS: HEMOGLOBIN 15.2 G/DL (11.5-16.0); MEAN PLATELET VOLUME 9.6 FL (7.4-10.4); RED CELL DISTRIBUTION WIDTH 13.4 % (10.0-14.5); WHITE BLOOD COUNT 7.5 10^3/uL (4.3-11.0)
[2019-03-25 08:37] LABS: INR 0.9 (0.8-1.4)
[2019-03-25 08:43] LABS: ALBUMIN 4.2 GM/DL (3.2-4.5); BILIRUBIN,TOTAL 0.7 MG/DL (0.1-1.0); CALCIUM 9.4 MG/DL (8.5-10.1); CREATININE SERUM 1.11 MG/DL (0.60-1.30); POTASSIUM 4.1 MMOL/L (3.6-5.0); TOTAL PROTEIN 6.9 GM/DL (6.4-8.2)
[2019-03-25] MEDS ORDERED: ESCI5TAB12 PO (08:43)
[2019-03-25] MEDS ORDERED: APIX5TAB PO (08:43)
[2019-03-25] MEDS ORDERED: OXYB5TAB9 PO (08:43)
[2019-03-25] MEDS ORDERED: NITR0.4T39 SL (08:43)
[2019-03-25] MEDS ORDERED: CARV3.12 PO (08:43)
[2019-03-25] MEDS ORDERED: FLU QUADRIvalent (5+ YOA) 2019-2020 (AFLURIA) 0.5 ML IM ONE (08:45)
[2019-03-25] MEDS ORDERED: LEVO125T6 PO (09:29)
--- NOTE | 2019-03-25 09:36 | Cardiac Procedure Note-CS/ASA ---
Pre-Procedure Note Pre-Op Procedure Note H&P Reviewed The H&P was reviewed, patient examined and no changes noted. Date H&P Reviewed: Mar 25, 2019 Time H&P Reviewed: 09:36 Conscious Sedation Pre-Proced Time 09:36 ASA Score 3 For ASA 3 and 4: Consider anesthesia and medical clearance. Also, for patients with a history of failed moderate sedation consider anesthesia. Airway Lungs Heart ASA score ASA 1: a normal healthy patient ASA 2: a patient with a mild systemic disease (mid diabetes, controlled hypertension, obesity ASA 3: a patient with a severe systemic disease that limits activity (angina, COPD, prior Myocardial infarction) ASA 4: a patient with an incapacitating disease that is a constant threat to life (CHF, renal failure) ASA 5: a moribund patient not expected to survive 24 hrs. (ruptured aneurysm) ASA 6: a declared brain- patient whose organs are being harvested. For emergent operations, add the letter E after the classification Mallampati Classification Grade 2 Sedation Plan Analgesia, Amnesia, Plan communicated to team members, Discussed options with patient/fam, Discussed risks with patient/fam The patient is an appropriate candidate to undergo the planned procedure, sedation, and anesthesia. The patient immediately re-assessed prior to indication. MICHELLE CASH MD FACP FAC CCDS Mar 25, 2019 09:36 POS
--- NOTE | 2019-03-25 10:20 | NUR ---
SPOKE WITH PT (SHE HAD HER BOTTLES) TO COMPLETE THE MED REC. THE PT WAS ABLE TO TELL ME HOW/WHEN SHE TAKES ALL HER MEDS. THE FOLLOWING ARE FILL DATES ACCORDING TO THOMAS FAJARDO: 01-21-2019 PANTOPRAZOLE #90/90DS 01-21-2019 CARVEDILOL #180/90D 01-21-2019 FUROSEMIDE #45/90DS 02-20-2019 OXYBUTYNIN #30/30DS 02-20-2019 ESCITALOPRAM #30/30DS 02-20-2019 ELIQUIS #60/30DS 02-20-2019 FLECAINIDE #60/30DS 02-20-2019 LEVOTHYROXINE #30/30DS 02-28-2019 TEMAZEPAM #30/30DS 03-19-2019 POTASSIUM #30/30DS 03-19-2019 NITROSTAT #1 BOTTLE OTC MEDS: APAP MELATONIN FISH OIL
[2019-03-25] MEDS ORDERED: fentaNYL INJECTION 100 MCG/2 ML AMP ONE (10:42)
[2019-03-25] MEDS ORDERED: MIDAZOLAM 5 MG/5 ML (VERSED) VIAL ONE (10:42)
[2019-03-25] MEDS ORDERED: ASPI-999 PO (11:24)
--- NOTE | 2019-03-25 11:25 | Discharge Inst-Post CATH ---
Discharge Inst-CATH/EP Final Diagnosis F/u with Dr Wells in 2 weeks Post Cardiac Cath/EP D/C Inst ACTIVITY * Go Home directly and rest. * Limit activity of the leg (or wrist if it was used) for 7 days including aerobics, swimming, jogging, bicycling, etc. * Restrict stair-climbing for 7 days if possible, if not, climb up with your non-cath leg, then bring together on the same step. * Avoid lifting, pushing, pulling or excessive movement of the affected extremity for 7 days. * Customary sexual activity may be resumed after 2 days-use caution not to use a position that strains or causes pain to the affected extremity. * No driving for 24 hours. * NO SMOKING. * Avoid straining for bowel movements for 7 days. * Gentle walking on level ground is allowed. * Returning to work will depend on the type of procedure and the results. Your doctor will discuss this with you. CALL YOUR DOCTOR FOR ANY OF THE FOLLOWING: *If bleeding from the puncture site occurs- Apply gentle pressure to site with clean cloth and call your doctor or EMS. * If a knot or lump forms under the skin, increases in size, or causes pain. * If bruising appears to be worsening or moving further down your leg instead of disappearing. * Temperature above 101 F. CARE OF YOUR GROIN INCISION; * Bruising or purple discoloration of the skin near the puncture site is common. * You may shower only, no bathtub bathing for 5 days. Be careful to avoid slipping as your leg may feel stiff. * If a closure device was used on your femoral artery, please see the attached guide regarding care of the device and your leg. * Leave dressing on FOR 24 hours. CARE OF YOUR WRIST INCISION; * Bruising or purple discoloration of the skin near the puncture site is common. * You may shower. * DO NOT submerge wrist. * Leave dressing on FOR 24 hours. MICHELLE WELLS MD [facility] CCDS Mar 25, 2019 11:25 POS
--- NOTE | 2019-03-25 11:25 | Discharge Inst-Cardiology ---
Discharge Inst-Cardiac Discharge Medications New Medications: Aspirin (Aspirin) 81 Mg Tab.chew 81 MG PO DAILY, #90 TAB 3 Refills Continued Medications: Acetaminophen (Tylenol Extra Strength) 500 Mg Tablet 1000 MG PO HS, TAB TAKES 2 (500MG) TABLETS Apixaban (Eliquis) 5 Mg Tablet 5 MG PO BID, TAB Carvedilol (Coreg) 3.125 Mg Tablet 3.125 MG PO BID, TAB Escitalopram Oxalate (Escitalopram Oxalate) 5 Mg Tablet 5 MG PO DAILY Fish Oil/Dha/Epa (Fish Oil 1,200 mg Fish Oil) 1 Each Capsule 1200 MG PO BID, CAP Flecainide Acetate (Flecainide Acetate) 100 Mg Tablet 100 MG PO Q12H, TAB Furosemide (Furosemide) 40 Mg Tablet 40 MG PO Q48H, TAB Levothyroxine Sodium (Levothyroxine Sodium) 125 Mcg Tablet 125 MCG PO DAILY, TAB Melatonin/Pyridoxine (Melatonin 5 mg Tablet) 1 Each Tablet 5 MG PO HS, TAB Nitroglycerin (Nitroglycerin) 0.4 Mg Tab.subl 0.4 MG SL UD PRN for CHEST PAIN, TAB Oxybutynin Chloride (Oxybutynin Chloride) 5 Mg Tablet 2.5 MG PO BID Pantoprazole Sodium (Pantoprazole Sodium) 40 Mg Tablet.dr 40 MG PO DAILY, TAB Potassium Chloride (Potassium Chloride) 10 Meq Tablet.er 10 MEQ PO DAILY, TAB Temazepam (Temazepam) 15 Mg Capsule 15 MG PO HS MICHELLE CASH MD FACP FAC CCDS Mar 25, 2019 11:24 POS
[2019-03-25] MEDS ORDERED: PATIENT MAY USE OWN MEDS, ALL PO SCH (11:30)
--- NOTE | 2019-03-25 13:32 | CARDIAC CATHETERIZATION ---
DATE OF SERVICE: 03/25/2019 CARDIAC CATHETERIZATION REPORT The patient is a 74-year-old lady who is known to have coronary artery disease and has had right coronary artery stenting several years ago. She has had recurrence of chest discomfort that is suggestive of recurrent angina. She has multiple, continuing coronary artery disease risk factors. Repeat cardiac catheterization was recommended. Informed consent was obtained. PROCEDURE: She was brought to the cardiac catheterization laboratory in a fasting state. Right groin was prepared and draped in the usual sterile fashion. Lidocaine 1% was used for local anesthesia. Modified Seldinger technique was used to advance a 5-Turkmen sheath in the left femoral artery, 5-Turkmen JL4 catheter for left coronary angiography, 5-Turkmen JR4 catheter for right coronary angiography, 5-Turkmen pigtail catheter was used for left heart catheterization and left ventricular angiography. Angiography of the left femoral artery was carried out through the sheath. Mynx was used to achieve hemostasis. She tolerated the procedure well. HEMODYNAMICS: Left ventricular end-diastolic pressure following coronary angiography was 6 mmHg. There was no significant pressure gradient on pullback across the aortic valve. Ascending aortic pressure was 134/57 with a mean 89 mmHg. CORONARY ANGIOGRAPHY: Mild coronary calcification is present. Left main coronary artery does not exhibit significant obstructive disease. Mild plaques are seen. Left circumflex artery has mild plaques. Right coronary artery is dominant and exhibits a patent stent in the right coronary. The stent is in the proximal and mid right coronary artery and is known to be Liberte 4 x 16 mm that was placed in 03/2007. LEFT VENTRICULAR ANGIOGRAPHY: Left ventricular angiography was carried out in the right anterior oblique projection. Global left ventricular systolic function normal. No regional wall motion abnormality was seen. Left ventricular ejection fraction. CONCLUSIONS: 1. Mild coronary artery disease. 2. Patent right coronary artery stent. 3. Normal left ventricular end-diastolic pressure. 4. Normal global left ventricular systolic function with an ejection fraction approximately 60%. DISCUSSION AND RECOMMENDATIONS: Based on results of the study, it appears appropriate to continue a conservative regimen. Risk factor modification has been reviewed. Outpatient followup is advised. Job ID: [id number] DocumentID: [id number] Dictated Date: 03/25/2019 11:16:07 Insole And Outsole Splitter Date: 03/25/2019 13:30:43 Dictated By: MICHELLE CASH MD, MA, FACP, FACC,
== END 2019-03-25 14:52 | disposition home or self-care (01) ==
LOC: CATH 07:53 → SDC 11:38 → CATH 14:52
PROVIDERS: ATTEND Internal Medicine Cardiovascular Disease
DX: I25.10 Atherosclerotic heart disease of native coronary artery without angina pectoris (principal); I48.91 Unspecified atrial fibrillation; I11.0 Hypertensive heart disease with heart failure; I50.32 Chronic diastolic (congestive) heart failure; E78.5 Hyperlipidemia, unspecified; E03.9 Hypothyroidism, unspecified; I25.2 Old myocardial infarction; R73.01 Impaired fasting glucose; G47.33 Obstructive sleep apnea (adult) (pediatric); E66.9 Obesity, unspecified; Z68.35 Body mass index [BMI] 35.0-35.9, adult; Z82.49 Family history of ischemic heart disease and other diseases of the circulatory system; Z87.891 Personal history of nicotine dependence; Z90.12 Acquired absence of left breast and nipple; Z85.3 Personal history of malignant neoplasm of breast; Z79.01 Long term (current) use of anticoagulants; Z90.710 Acquired absence of both cervix and uterus; Z90.49 Acquired absence of other specified parts of digestive tract; Z95.5 Presence of coronary angioplasty implant and graft
CPT/HCPCS: 36415; 80053; 80061; 85027; 85610; 85730; 87081; 93458

== ENCOUNTER → 2019-04-15 | Day surgery (SDC) | payer MEDICARE ==
[~2019-04-15] VITALS: Ht 162.5 cm; Wt 92.7 kg
[~2019-04-15] MED LIST changes: +ASPI-999 PO; +CARV3.12 PO; +LEVO125T6 PO; +LIDOCAINE 1% INJ 20 ML 20 ML VIAL ONE; +NITR0.4T39 SL; +OXYB5TAB9 PO
[2019-04-15 12:22] VITALS: BP 142/67
--- NOTE | 2019-04-15 13:05 | Cardiac Procedure Note-CS/ASA ---
Pre-Procedure Note Pre-Op Procedure Note H&P Reviewed The H&P was reviewed, patient examined and no changes noted. Date H&P Reviewed: Apr 15, 2019 Time H&P Reviewed: 12:50 Conscious Sedation Pre-Proced Time 12:50 ASA Score 3 For ASA 3 and 4: Consider anesthesia and medical clearance. Also, for patients with a history of failed moderate sedation consider anesthesia. Airway Lungs Heart ASA score ASA 1: a normal healthy patient ASA 2: a patient with a mild systemic disease (mid diabetes, controlled hypertension, obesity ASA 3: a patient with a severe systemic disease that limits activity (angina, COPD, prior Myocardial infarction) ASA 4: a patient with an incapacitating disease that is a constant threat to life (CHF, renal failure) ASA 5: a moribund patient not expected to survive 24 hrs. (ruptured aneurysm) ASA 6: a declared brain- patient whose organs are being harvested. For emergent operations, add the letter E after the classification Mallampati Classification Grade 2 Sedation Plan Analgesia, Amnesia, Plan communicated to team members, Discussed options with patient/fam, Discussed risks with patient/fam The patient is an appropriate candidate to undergo the planned procedure, sedation, and anesthesia. The patient immediately re-assessed prior to indication. MICHELLE CASH MD FACP FAC CCDS Apr 15, 2019 13:05 POS
--- NOTE | 2019-04-15 20:40 | OPERATIVE REPORT ---
DATE OF SERVICE: 04/15/2019 PREOPERATIVE DIAGNOSES: Chest discomfort, palpitations, history of paroxysmal atrial fibrillation. POSTOPERATIVE DIAGNOSES: Chest discomfort, palpitations, history of paroxysmal atrial fibrillation. PROCEDURE PERFORMED: Implantable loop recorder implantation. INDICATIONS: The patient is a 74-year-old lady, who has a history of intermittent chest discomfort, but cardiac catheterization does not indicate any significant obstructive coronary artery disease. Occult atrial fibrillation is suspected. Implantable loop recorder implantation was carried out today after having obtained informed consent. DESCRIPTION OF PROCEDURE: [facility] The left prepectoral area was prepared and draped in the usual sterile fashion. Lidocaine 1% was used for local anesthesia. The tools provided with the BUKA Reveal LINQ device were used to make a subcutaneous pocket anterior to the left fourth intercostal space into which the device was placed and the wound edges were closed using Dermabond and Steri-Strips. The serial number of the device is [id number]. The patient tolerated the procedure well. Job ID: [id number] DocumentID: [id number] Dictated Date: 04/15/2019 13:01:41 Marketing Automation Specialist Date: 04/15/2019 20:40:09 Dictated By: MICHELLE CASH MD, MA, FACP, FACC,
== END | disposition home or self-care (01) ==
LOC: CATH 11:38
PROVIDERS: ATTEND Internal Medicine Cardiovascular Disease
DX: I48.0 Paroxysmal atrial fibrillation (principal); I95.1 Orthostatic hypotension; E03.9 Hypothyroidism, unspecified; I77.9 Disorder of arteries and arterioles, unspecified; E78.5 Hyperlipidemia, unspecified; I25.10 Atherosclerotic heart disease of native coronary artery without angina pectoris; I50.9 Heart failure, unspecified; G47.33 Obstructive sleep apnea (adult) (pediatric); G47.62 Sleep related leg cramps; R73.01 Impaired fasting glucose; Z87.891 Personal history of nicotine dependence; Z99.89 Dependence on other enabling machines and devices; Z88.0 Allergy status to penicillin; Z79.01 Long term (current) use of anticoagulants; Z79.82 Long term (current) use of aspirin; Z79.899 Other long term (current) drug therapy; Z85.3 Personal history of malignant neoplasm of breast; Z82.49 Family history of ischemic heart disease and other diseases of the circulatory system
CPT/HCPCS: 33285

== ENCOUNTER 2019-05-05 13:08 | Outpatient (RCR) | payer MEDICARE ==
[~2019-05-05 13:08] MED LIST changes: -LIDOCAINE 1% INJ 20 ML 20 ML VIAL ONE
== END 2019-05-09 | disposition home or self-care (01) ==
LOC: CR3 13:08
PROVIDERS: ATTEND Internal Medicine Cardiovascular Disease
DX: Z29.8 Encounter for other specified prophylactic measures (principal)

== ENCOUNTER 2019-05-16 13:46 | Day surgery (SDC) | payer MEDICARE ==
[2019-05-13 12:50] VITALS: BP 146/96
--- NOTE | 2019-05-13 13:36 | NUR ---
SPOKE WITH PT (SHE HAD HER BOTTLES) AND CALLED [facility] TO COMPLETE THE MED REC. THE PT WAS ABLE TO TELL ME HOW/WHEN SHE TAKES EACH MEDICATION. POTASSIUM: BOTTLE SAYS " 1 TAB DAILY WITH LASIX" (THE PT TAKES LASIX EVERY OTHER DAY) HOWEVER THE PT WAS TOLD TO TAKE THE POTASSIUM DAILY AND KEEP THE LASIX EVERY OTHER DAY. THE FOLLOWING ARE FILL DATES ACCORDING TO [facility]: 03-25-2019 ASPIRIN #90/90DS 04-17-2019 POTASSIUM #30/30DS 04-21-2019 FUROSEMIDE #45/90DS 04-21-2019 CARVEDILOL #180/90DS 04-21-2019 LEVOTHYROXINE #30 04-21-2019 OXYBUTYNIN #30/30DS 04-21-2019 PANTOPRAZOLE #30/30DS 04-21-2019 ESCITALOPRAM #30/30DS 04-21-2019 ELIQUIS #60/30DS 04-21-2019 FLECAINIDE #60/30DS 04-30-2019 TEMAZEPAM #30/30DS 05-07-2019 DILTIAZEM #30/30DS OTC MEDS: TYLENOL MTV FISH OIL
[2019-05-16] VITALS (10 sets, daily range): BP systolic 118–177; BP diastolic 51–83
[~2019-05-16] VITALS: Ht 163 cm; Wt 96.0 kg
[~2019-05-16 13:46] MED LIST changes: +BACITRACIN 50000 UNITS/500 ML NS IR ONE; +BACITRACIN INJECTION 50,000 UNIT, SODIUM CHLORIDE 0.9% IRRIGATIO 500 ML IR ONE; +DILT240C86 PO; +FLU QUADRIvalent (5+ YOA) 2019-2020 (AFLURIA) 0.5 ML IM ONE; +HEParin 1000 UNIT/ML (10ML VIAL) FOR BOLUS ONE; +LIDOCAINE 1% INJ 20 ML 20 ML VIAL ONE; +MULT-974 PO; +NS IV 1000 ML 1,000 ML IV SCH; +NS IV 1000 ML 1,000 ML ONE; +VANCOMYCIN INJECTION 1,000 MG in NS (IVPB) 250 ML IV NR
[2019-05-16] MEDS ORDERED: LIDOCAINE 1% INJ 20 ML 20 ML VIAL ONE ×2 (13:49→17:28)
[2019-05-16] MEDS ORDERED: NS IV 1000 ML 2,000 ML ONE (13:49)
[2019-05-16] MEDS ORDERED: HEParin 1000 UNIT/ML (10ML VIAL) FOR BOLUS ONE (13:50)
[2019-05-16] MEDS ORDERED: NS IV 1000 ML 1,000 ML IV ONE (13:52)
[2019-05-16] MEDS ORDERED: BACITRACIN INJECTION 50,000 UNIT, SODIUM CHLORIDE 0.9% IRRIGATIO 500 ML IR ONE ×2 (14:00)
[2019-05-16 14:14] LABS: HEMOGLOBIN 15.2 G/DL (11.5-16.0); MEAN PLATELET VOLUME 9.5 FL (7.4-10.4); RED CELL DISTRIBUTION WIDTH 13.5 % (10.0-14.5)
[2019-05-16] MEDS ORDERED: BACITRACIN 50000 UNITS/500 ML NS IR ONE ×2 (14:15)
[2019-05-16 14:29] LABS: INR 0.9 (0.8-1.4); PROTHROMBIN TIME PATIENT 12.1 SEC (12.2-14.7)
[2019-05-16] MEDS ORDERED: VANCOMYCIN INJECTION 1,000 MG in NS (IVPB) 250 ML IV ONE (14:30)
[2019-05-16 14:36] LABS: ALANINE AMINOTRANSFERASE 22 U/L (0-55); ALBUMIN 4.5 GM/DL (3.2-4.5); ALKALINE PHOSPHATASE 29 U/L (40-136); BILIRUBIN,TOTAL 0.6 MG/DL (0.1-1.0); BUN/CREATININE RATIO 17; CALCIUM 9.7 MG/DL (8.5-10.1); CARBON DIOXIDE 28 MMOL/L (21-32); CHLORIDE 103 MMOL/L (98-107); CHOLESTEROL 238 MG/DL (< 200); CREATININE SERUM 0.88 MG/DL (0.60-1.30); GFR ESTIMATED > 60; GLUCOSE 96 MG/DL (70-105); HDL CHOLESTEROL 55 MG/DL (40-60); POTASSIUM 4.2 MMOL/L (3.6-5.0); SODIUM 139 MMOL/L (135-145); TOTAL PROTEIN 7.3 GM/DL (6.4-8.2); TRIGLYCERIDES 255 MG/DL (<150); VLDL CHOLESTEROL 51 MG/DL (5-40)
--- NOTE | 2019-05-16 15:26 | Cardiac Procedure Note-CS/ASA ---
Pre-Procedure Note Pre-Op Procedure Note H&P Reviewed The H&P was reviewed, patient examined and no changes noted. Date H&P Reviewed: May 16, 2019 Time H&P Reviewed: 15:26 Conscious Sedation Pre-Proced Time 15:26 ASA Score 3 For ASA 3 and 4: Consider anesthesia and medical clearance. Also, for patients with a history of failed moderate sedation consider anesthesia. Airway Lungs Heart ASA score ASA 1: a normal healthy patient ASA 2: a patient with a mild systemic disease (mid diabetes, controlled hypertension, obesity ASA 3: a patient with a severe systemic disease that limits activity (angina, COPD, prior Myocardial infarction) ASA 4: a patient with an incapacitating disease that is a constant threat to life (CHF, renal failure) ASA 5: a moribund patient not expected to survive 24 hrs. (ruptured aneurysm) ASA 6: a declared brain- patient whose organs are being harvested. For emergent operations, add the letter E after the classification Mallampati Classification Grade 2 Sedation Plan Analgesia, Amnesia, Plan communicated to team members, Discussed options with patient/fam, Discussed risks with patient/fam The patient is an appropriate candidate to undergo the planned procedure, sedation, and anesthesia. The patient immediately re-assessed prior to indication. MICHELLE CASH MD FACP FAC CCDS May 16, 2019 15:26
[2019-05-16] MEDS ORDERED: MIDAZOLAM 5 MG/5 ML (VERSED) VIAL ONE ×2 (15:29→15:56)
[2019-05-16] MEDS ORDERED: fentaNYL INJECTION 100 MCG/2 ML AMP ONE ×2 (15:29→15:56)
[2019-05-16] MEDS ORDERED: NEO/POLY/BAC (NEOSPORIN) OINT 15 GM TUBE ONE (17:37)
[2019-05-16] MEDS ORDERED: NS IV 1000 ML 1,000 ML IV SCH (18:06)
[2019-05-16] MEDS ORDERED: ACETAMINOPHEN 500 MG TAB (TYLENOL) PO PRN (18:15)
[2019-05-16] MEDS ORDERED: PATIENT MAY USE OWN MEDS, ALL PO SCH (18:15)
[2019-05-16] MEDS ORDERED: SULF1TAB35 PO (18:26)
--- NOTE | 2019-05-16 18:27 | Discharge Inst-Cardiology ---
Discharge Inst-Cardiac Discharge Medications New Medications: Sulfamethoxazole/Trimethoprim (Bactrim Ds Tablet) 1 Each Tablet 1 EACH PO BID for 3 Days, #6 TAB 0 Refills Continued Medications: Acetaminophen (Tylenol Extra Strength) 500 Mg Tablet 1000 MG PO HS, TAB TAKES 2 (500MG) TABLETS Apixaban (Eliquis) 5 Mg Tablet 5 MG PO BID, TAB Aspirin (Aspirin) 81 Mg Tab.chew 81 MG PO DAILY, TAB Carvedilol (Coreg) 3.125 Mg Tablet 3.125 MG PO BID, TAB Diltiazem HCl (Cardizem Cd) 240 Mg Cap.er.24h 240 MG PO DAILY, CAP Escitalopram Oxalate (Escitalopram Oxalate) 5 Mg Tablet 5 MG PO DAILY Fish Oil/Dha/Epa (Fish Oil 1,200 mg Fish Oil) 1 Each Capsule 1200 MG PO BID, CAP Flecainide Acetate (Flecainide Acetate) 100 Mg Tablet 100 MG PO Q12H, TAB Furosemide (Furosemide) 40 Mg Tablet 40 MG PO Q48H, TAB Levothyroxine Sodium (Levothyroxine Sodium) 125 Mcg Tablet 125 MCG PO ,MO,TU,WE,FR,SA, TAB TAKES 1 TAB ON SUN,SUN,SUN,SUN,SUN AND SUNDAY & TAKES 1/2 TAB ON Levothyroxine Sodium (Levothyroxine Sodium) 125 Mcg Tablet 62.5 MCG PO , TAB TAKES 1 TAB ON SUN,SUN,SUN,SUN,SUN AND SUNDAY & TAKES 1/2 TAB ON Melatonin/Pyridoxine (Melatonin 5 mg Tablet) 1 Each Tablet 5 MG PO HS, TAB Multivitamin (Multi-Vitamin Daily) 1 Each Tablet 1 EACH PO DAILY, TAB Oxybutynin Chloride (Oxybutynin Chloride) 5 Mg Tablet 2.5 MG PO BID TAKES OF A 5MG TO EQUAL A 2.5MG TWICE DAILY Pantoprazole Sodium (Pantoprazole Sodium) 40 Mg Tablet.dr 40 MG PO DAILY, TAB Potassium Chloride (Potassium Chloride) 10 Meq Tablet.er 10 MEQ PO DAILY, TAB Temazepam (Temazepam) 15 Mg Capsule 15 MG PO HS Orders-Post D/C & Referrals Pneu Vac Indicated: Yes MICHELLE CASH MD FAC FAC CCDS May 16, 2019 18:27
--- NOTE | 2019-05-16 18:28 | Diagnostic Imaging Report ---
INDICATION: Cardiac device placement. FINDINGS: Battery for the device overlies the left chest. There is no pneumothorax. There is minimal basilar atelectasis. IMPRESSION: Mild basilar atelectasis. No pneumothorax following dual-chamber pacemaker placement. Dictated by: Dictated on workstation # [id number]
--- NOTE | 2019-05-16 18:29 | Discharge Inst-Post CATH ---
Discharge Inst-CATH/EP Post Cardiac Cath/EP D/C Inst Follow Up/Plan F/u at Dr Wells's office for wound check on 05/19/19 F/u at Dr Wells's for doctor visit in one month Avoid pushing/pulling with L arm or lifting L arm above head for 4 weeks ACTIVITY * Go Home directly and rest. * Limit activity of the leg (or wrist if it was used) for 7 days including aerobics, swimming, jogging, bicycling, etc. * Restrict stair-climbing for 7 days if possible, if not, climb up with your non-cath leg, then bring together on the same step. * Avoid lifting, pushing, pulling or excessive movement of the affected extremity for 7 days. * Customary sexual activity may be resumed after 2 days-use caution not to use a position that strains or causes pain to the affected extremity. * No driving for 24 hours. * NO SMOKING. * Avoid straining for bowel movements for 7 days. * Gentle walking on level ground is allowed. * Returning to work will depend on the type of procedure and the results. Your doctor will discuss this with you. CALL YOUR DOCTOR FOR ANY OF THE FOLLOWING: *If bleeding from the puncture site occurs- Apply gentle pressure to site with clean cloth and call your doctor or EMS. * If a knot or lump forms under the skin, increases in size, or causes pain. * If bruising appears to be worsening or moving further down your leg instead of disappearing. * Temperature above 101 F. CARE OF YOUR GROIN INCISION; * Bruising or purple discoloration of the skin near the puncture site is common. * You may shower only, no bathtub bathing for 5 days. Be careful to avoid slipping as your leg may feel stiff. * If a closure device was used on your femoral artery, please see the attached guide regarding care of the device and your leg. * Leave dressing on FOR 24 hours. CARE OF YOUR WRIST INCISION; * Bruising or purple discoloration of the skin near the puncture site is common. * You may shower. * DO NOT submerge wrist. * Leave dressing on FOR 24 hours. MCIHELLE WELLS MD [facility] CCDS May 16, 2019 18:29
--- NOTE | 2019-05-16 18:30 | NUR ---
TRANSFERRED FROM THE DENTIST/OWNER TO ROOM 510 POST PACEMAKER INSERTION. 2 DRESSINGS D/I LEFT CHEST. TOP ONE IS PACER SITE AND BOTTOM ONE IS WHERE LOOP RECORDER WAS REMOVED. SLING PUT ON LEFT ARM. VSS. SEE VITAL SIGN INTERVENTION. DENIES PAIN AT THIS TIME. FAMILY MEMBER AT BEDSIDE. REPORT WAS GIVEN BY MAURISIO OWEN.
--- NOTE | 2019-05-16 18:37 | Cardiology Discharge Summary ---
Diagnosis/Chief Complaint Date of Admission 05/16/19 Date of Discharge 05/17/19 Final/Discharge Diagnosis SSS with tachycardia-bradycardia syndrome: PAF resulting in palpitations and chest discomfort, pauses of up to 5 seconds recorded on implantable loop recorder. S/p dual chamber pacemaker implantation and removal of ILR on 05/16/19 Postural hypotension, likely d/t medications, now resolved MYNOR diagnosed on sleep studies of 10/17/17 - currently on CPAP tx - non-compliant LVEF 60-65%. Grade 1 diastolic dysfunction. RVSP approx 21 mmHg. mild TR. Per echocardiogram of Jan 2019 Diastolic CHF, likely related to a fib with a rapid vent response, compensated after attainment of NSR and control of heart during brief episodes of PAF Coronary artery disease with a history of coronary stenting. Last cardiac catheterization was on 03/25/19: mild CAD, patent RCA (Liberte 4 x 16 that was placed in Mar 2007), LVEDP normal, LVEF 60% MPI of October 12, 2016 showed no evidence of significant myocardial ischemia or infarction. Normal regional wall motion. LVEF 69%. Atrial fib throughout the study Stroke prophylaxis with apixaban Chronic nocturnal leg cramps, currently controlled. Hyperlipidemia being treated with atorvastatin. Followed by Dr. Mayo Chronic intermittent bilateral leg swelling, likely related to venous insufficiency, currently stable. History of breast carcinoma for which she has undergone mastectomy in 2011. [facility] Gastroesophageal reflux. History of thyroid ablation for hyperthyroidism several years ago. Hypothyroidism being treated with thyroid replacement therapy, followed by Dr Mayo. Impaired fasting glucose Mild carotid arterial disease on u/s of 03/05/18 Discharge Summary Procedures None. Hospital Course Pending Labs Laboratory Tests 05/16/19 14:00: White Blood Count 9.0, Red Blood Count 4.61, Hemoglobin 15.2, Hematocrit 46, Mean Corpuscular Volume 100, Mean Corpuscular Hemoglobin 33, Mean Corpuscular Hemoglobin Concent 33, Red Cell Distribution Width 13.5, Platelet Count 331, Mean Platelet Volume 9.5, Prothrombin Time 12.1, INR Comment 0.9, Activated Partial Thromboplast Time 29, Sodium Level 139, Potassium Level 4.2, Chloride Level 103, Carbon Dioxide Level 28, Anion Gap 8, Blood Urea Nitrogen 15, Creatinine 0.88, Estimat Glomerular Filtration Rate > 60, BUN/Creatinine Ratio 17, Glucose Level 96, Calcium Level 9.7, Corrected Calcium 9.3, Total Bilirubin 0.6, Aspartate Amino Transf (AST/SGOT) 19, Alanine Aminotransferase (ALT/SGPT) 22, Alkaline Phosphatase 29, Total Protein 7.3, Albumin 4.5, Triglycerides Level 255, Cholesterol Level 238, LDL Cholesterol Direct 142, VLDL Cholesterol 51, HDL Cholesterol 55 Discussion & Recommendations Home Medications Reviewed patient Home Medication Reconciliation performed by pharmacy medication reconciliations plc technician and/or nursing. Patients Allergies have been reviewed. Discharge Home Medications: Reviewed and agree with Discharge Medication list on patient's Discharge Instruction sheet Instructions to patient/family F/u at Dr Wells's office for wound check on 05/19/19 F/u at Dr Wells's for doctor visit in one month Avoid pushing/pulling with L arm or lifting L arm above head for 4 weeks MICHELLE WELLS MD FACP FAC CCDS May 16, 2019 18:37
[2019-05-16] MEDS ORDERED: MELATONIN 5 MG TABLET PO SCH (21:00)
[2019-05-16] MEDS: FLECAINIDE 100 MG (TAMBOCOR) TAB PO SCH ×2 (21:50→21:59)
[2019-05-16] MEDS: TEMAZEPAM 15 MG (RESTORIL) CAP PO SCH ×2 (21:50→22:03)
[2019-05-16] MEDS: CARVEDILOL 3.125 MG (COREG) TABLET PO SCH ×2 (21:51→22:00)
[2019-05-16] MEDS: APIXABAN 5 MG (ELIQUIS) TABLET PO SCH ×2 (21:51→21:57)
[2019-05-16] MEDS: OMEGA 3 (FISH OIL) 1000 MG CAP PO SCH (21:51)
[2019-05-16] MEDS: ACETAMINOPHEN 500 MG TAB (TYLENOL) PO SCH ×2 (21:51→22:03)
[2019-05-16] MEDS: OXYBUTYNIN (DITROPAN) 5 MG TAB PO SCH (21:56)
[2019-05-17] VITALS: BP 111/66
--- NOTE | 2019-05-17 02:56 | OPERATIVE REPORT ---
DATE OF SERVICE: 05/15/2019 PREOPERATIVE DIAGNOSIS: Sinus node dysfunction with symptomatic tachycardia-bradycardia syndrome. POSTOPERATIVE DIAGNOSIS: Sinus node dysfunction with symptomatic tachycardia-bradycardia syndrome. PROCEDURE: Dual chamber pacemaker implantation. ESTIMATED BLOOD LOSS: Less than 20 mL. INDICATIONS: The patient is a 74-year-old lady, who has sinus node dysfunction with episodes of paroxysmal atrial fibrillation. She is symptomatic from the rapid ventricular response during episodes of paroxysmal atrial fibrillation. To control that, she has been on calcium channel blockers. She is now intermittently experiencing marked bradycardia. Pacemaker implantation was recommended to treat bradycardia. Medications were recommended for control of tachycardia. DESCRIPTION OF PROCEDURE: She was brought to the cardiac catheterization laboratory. The left prepectoral area was prepared and draped in usual sterile fashion. We injected 10 mL of intravenous contrast through a left forearm vein. This delineated the left subclavian artery anatomy. We then used the Seldinger technique to advance a guidewire into the left subclavian vein and the tip was placed in the right atrium. Sharp and blunt dissection was used to make a pacemaker pocket. Good hemostasis was assured. The pocket was packed with gauze-soaked in an antibiotic solution. The guidewire was used to advance a 9-Argentine sheath. This sheath was used to keep two guidewires in position and the sheath was removed. Each guidewire was used to advance a 7-Argentine sheath and the guidewire was removed. Each sheath was used to advance leads and the sheath was then removed. The ventricular lead is a passive fixation lead and placed close to the right ventricular apex. Good sensing and capture thresholds were obtained. The atrial lead is an active fixation lead and is attached at the right atrial appendage area. Good capture and sensing thresholds were obtained. There was no diaphragmatic stimulation at 10 volts. All lead manipulations were carried out under fluoroscopy. The leads were sutured to the prepectoral fascia using sleeves and 0 Ethibond. The antibiotic soaks were removed from the pocket. The pocket was thoroughly irrigated with an antibiotic solution. Good hemostasis was assured. The leads were attached to a dual chamber pacemaker and the pacemaker placed in the pocket and the pocket closed in 2 layers using 3.0 Vicryl. Right atrial lead is Medtronic model 5076-52 with serial [id number]. The right ventricular lead is Medtronic model 076412 with serial # [id number]. Right atrial capture threshold is 1 volt at 0.6 milliseconds. The right atrial pacing impedance is 665 ohms. P-wave is measured at 4.5 millivolts. Right ventricular capture threshold is 0.375 volts at 0.4 milliseconds. Right ventricular impedance is 570 ohms. R-wave amplitude was 9 millivolts. The patient tolerated the procedure well. Job ID: [id number] DocumentID: [id number] Dictated Date: 05/16/2019 17:43:38 Machine Adjuster Date: 05/17/2019 02:54:57 Dictated By: MICHELLE CASH MD, MA, FACP, FACC, MTDD
--- NOTE | 2019-05-17 03:09 | OPERATIVE REPORT ---
DATE OF SERVICE: 05/16/2019 PROCEDURE: Removal of implantable loop recorder. INDICATIONS: The patient is a 74-year-old lady who had implantable loop recorder placed for evaluation of palpitations, near syncope and chest discomfort. Paroxysmal atrial fibrillation was found as the cause of her symptoms. Her medications to control ventricular response during paroxysmal atrial fibrillation resulted in marked bradycardia with symptoms. Dual chamber pacemaker implantation was carried out on 05/16/2019. Implantable loop recorder is no longer needed. This was removed. DESCRIPTION OF PROCEDURE: Consent had been obtained prior to the pacemaker implantation procedure. The area of implantation in the left prepectoral area was prepared and draped in the usual sterile fashion. Lidocaine 1% was used for local anesthesia. Sharp and blunt dissection was used to remove the implantable loop recorder from the pocket. The wound edges were closed with 3.0 Vicryl. She tolerated the procedure well. Job ID: [id number] DocumentID: [id number] Dictated Date: 05/16/2019 18:02:08 Plumber'S Assistant Date: 05/17/2019 03:07:07 Dictated By: MICHELLE CASH MD, MA, FACP, FACC,
[2019-05-17 03:58] VITALS: BP 114/68
[2019-05-17 04:21] LABS: HEMOGLOBIN 13.2 G/DL (11.5-16.0); MEAN PLATELET VOLUME 9.6 FL (7.4-10.4); RED CELL DISTRIBUTION WIDTH 13.5 % (10.0-14.5); WHITE BLOOD COUNT 7.4 10^3/uL (4.3-11.0)
[2019-05-17 04:42] LABS: ALANINE AMINOTRANSFERASE 20 U/L (0-55); ALBUMIN 3.6 GM/DL (3.2-4.5); ALKALINE PHOSPHATASE 25 U/L (40-136); BILIRUBIN,TOTAL 0.5 MG/DL (0.1-1.0); BUN/CREATININE RATIO 20; CALCIUM 8.7 MG/DL (8.5-10.1); CARBON DIOXIDE 21 MMOL/L (21-32); CHLORIDE 107 MMOL/L (98-107); CREATININE SERUM 0.91 MG/DL (0.60-1.30); GFR ESTIMATED > 60; GLUCOSE 99 MG/DL (70-105); POTASSIUM 4.3 MMOL/L (3.6-5.0); SODIUM 140 MMOL/L (135-145); TOTAL PROTEIN 5.9 GM/DL (6.4-8.2)
[2019-05-17] MEDS ORDERED: NS (IVPB) 250 ML ONE (05:38)
[2019-05-17] MEDS ORDERED: VANCOMYCIN 1000 MG/VIAL ONE (05:38)
[2019-05-17] MEDS ORDERED: VANCOMYCIN INJECTION 1,000 MG in NS (IVPB) 250 ML IV NR (06:00)
[2019-05-17] MEDS ORDERED: LEVOTHYROXINE 125 MCG (LEVOTHROID) TABLET PO SCH (06:30)
[2019-05-17] MEDS ORDERED: MULTIVIT W/MINERALS TAB (THERAGRAN M) PO SCH (07:00)
[2019-05-17] MEDS ORDERED: KCL 10 MEQ TAB (MICRO K) PO SCH (07:00)
[2019-05-17] MEDS ORDERED: FUROSEMIDE 40 MG (LASIX) TAB PO SCH (07:00)
[2019-05-17 08:45] VITALS: BP 123/74
[2019-05-17] MEDS: APIXABAN 5 MG (ELIQUIS) TABLET PO SCH (08:58)
[2019-05-17] MEDS: FLECAINIDE 100 MG (TAMBOCOR) TAB PO SCH (08:58)
[2019-05-17] MEDS ORDERED: ASPIRIN 81 MG CHEW (CHILDREN'S ASA) PO SCH (09:00)
[2019-05-17] MEDS ORDERED: NON-FORMULARY MEDICATION 1 EA EA (Escitalopram Oxalate 5 MG) PO SCH (09:00)
[2019-05-17] MEDS ORDERED: ESCITALOPRAM 5 MG TABLET PO SCH (09:00)
[2019-05-17] MEDS ORDERED: DILTIAZEM 240 MG (CARDIZEM CD) CAP PO SCH (09:00)
[2019-05-17] MEDS: CARVEDILOL 3.125 MG (COREG) TABLET PO SCH (09:00)
[2019-05-17] MEDS: OXYBUTYNIN (DITROPAN) 5 MG TAB PO SCH (09:00)
[2019-05-17] MEDS ORDERED: PANTOPRAZOLE 40 MG (PROTONIX) TAB PO SCH (09:00)
[2019-05-17] MEDS: OMEGA 3 (FISH OIL) 1000 MG CAP PO SCH (09:01)
[2019-05-17 12:00] VITALS: BP 103/64
--- NOTE | 2019-05-17 16:16 | Cardiology Progress Note ---
Cardiology SOAP Progress Note Subjective: No cardiac complaints. Objective: I&O/Vital Signs 05/17/19 05/17/19 05/17/19 05/17/19 07:00 08:00 08:45 12:00 Temp 36.3 36.6 Pulse 60 82 68 Resp 16 18 B/P (MAP) 123/74 (90) 103/64 (77) Pulse Ox 94 97 O2 Delivery Room Air Room Air Room Air 05/17/19 14:00 B/P (MAP) Weight (Pounds): 209 Weight (Ounces): 0.0 Weight (Calculated Kilograms): 94.935701 Device Insertion Site: without hematoma Swelling: without swelling Drainage: No Constitutional: AAO x 3 Respiratory: chest is bilaterally symmetric, lungs clear to auscultation Cardiovascular: regular rate-rhythm, S1 and S2 Gastrointestional: soft, audible bowel sounds Extremities: normal range of motion, non-tender, normal inspection, no lower extremity edema bilateral Neurologic/Psychiatric: no motor/sensory deficits, alert, normal mood/affect, oriented x 3 Skin: normal color Results/Procedures: Labs Laboratory Tests 05/17/19 04:04: White Blood Count 7.4, Red Blood Count 4.03L, Hemoglobin 13.2, Hematocrit 40, Mean Corpuscular Volume 100H, Mean Corpuscular Hemoglobin 33, Mean Corpuscular Hemoglobin Concent 33, Red Cell Distribution Width 13.5, Platelet Count 270, Mean Platelet Volume 9.6, Sodium Level 140, Potassium Level 4.3, Chloride Level 107, Carbon Dioxide Level 21, Anion Gap 12, Blood Urea Nitrogen 18, Creatinine 0.91, Estimat Glomerular Filtration Rate > 60, BUN/Creatinine Ratio 20, Glucose Level 99, Calcium Level 8.7, Corrected Calcium 9.0, Total Bilirubin 0.5, Aspartate Amino Transf (AST/SGOT) 18, Alanine Aminotransferase (ALT/SGPT) 20, Al kaline Phosphatase 25L, Total Protein 5.9L, Albumin 3.6 Microbiology 05/16/19 MRSA Screen - Final, Complete MRSA not isolated A/P: Assessment/Dx: SSS with tachycardia-bradycardia syndrome: PAF resulting in palpitations and chest discomfort, pauses of up to 5 seconds recorded on implantable loop recorder. S/p dual chamber pacemaker implantation and removal of ILR on 05/16/19 Postural hypotension, likely d/t medications, now resolved MYNOR diagnosed on sleep studies of 10/17/17 - currently on CPAP tx - non-compliant LVEF 60-65%. Grade 1 diastolic dysfunction. RVSP approx 21 mmHg. mild TR. Per echocardiogram of Jan 2019 Diastolic CHF, likely related to a fib with a rapid vent response, compensated after attainment of NSR and control of heart during brief episodes of PAF Coronary artery disease with a history of coronary stenting. Last cardiac catheterization was on 03/25/19: mild CAD, patent RCA (Liberte 4 x 16 that was placed in Mar 2007), LVEDP normal, LVEF 60% MPI of October 12, 2016 showed no evidence of significant myocardial ischemia or infarction. Normal regional wall motion. LVEF 69%. Atrial fib throughout the study Stroke prophylaxis with apixaban Chronic nocturnal leg cramps, currently controlled. Hyperlipidemia being treated with atorvastatin. Followed by Dr. Mayo Chronic intermittent bilateral leg swelling, likely related to venous insufficiency, currently stable. History of breast carcinoma for which she has undergone mastectomy in 2011. [facility] Gastroesophageal reflux. History of thyroid ablation for hyperthyroidism several years ago. Hypothyroidism being treated with thyroid replacement therapy, followed by Dr Mayo. Impaired fasting glucose Mild carotid arterial disease on u/s of 03/05/18 Plan: Status post permanent pacemaker by Dr. Wells on 05/16/2019. Normal device inte rrogation. No complication post pacemaker. Discharge instructions were discussed at length with the patient. She will follow-up in Dr. Wells's office in one week wound check. Device interrogation in a month. By mouth antibiotics for the next 3 days. Thank you for your consultation. Please call me if you have any questions. Danish Watson MD, FACP, FACC, FSCAI, FHRS, CCDS Interventional Cardiology Cardiac Electrophysiology Vascular Medicine and Endovascular Interventions Isabel WATSON MD May 17, 2019 16:16
[2019-05-22] MEDS ORDERED: LEVOTHYROXINE 125 MCG (LEVOTHROID) TABLET PO SCH (06:30)
== END 2019-05-17 14:00 | disposition home or self-care (01) ==
LOC: CATH 13:46 → CSD 18:27 → CATH 05-17 14:00
PROVIDERS: ATTEND Internal Medicine Cardiovascular Disease
DX: I49.5 Sick sinus syndrome (principal); I48.0 Paroxysmal atrial fibrillation; G47.33 Obstructive sleep apnea (adult) (pediatric); E03.9 Hypothyroidism, unspecified; E78.5 Hyperlipidemia, unspecified; E66.9 Obesity, unspecified; Z68.36 Body mass index [BMI] 36.0-36.9, adult; I50.33 Acute on chronic diastolic (congestive) heart failure; I25.2 Old myocardial infarction; I25.10 Atherosclerotic heart disease of native coronary artery without angina pectoris; K21.9 Gastro-esophageal reflux disease without esophagitis; R73.01 Impaired fasting glucose; Z88.0 Allergy status to penicillin; Z79.01 Long term (current) use of anticoagulants; Z79.82 Long term (current) use of aspirin; Z79.899 Other long term (current) drug therapy; Z85.3 Personal history of malignant neoplasm of breast; Z82.49 Family history of ischemic heart disease and other diseases of the circulatory system; Z90.710 Acquired absence of both cervix and uterus; Z90.79 Acquired absence of other genital organ(s); Z90.721 Acquired absence of ovaries, unilateral; Z90.12 Acquired absence of left breast and nipple; Z87.891 Personal history of nicotine dependence; Z86.73 Personal history of transient ischemic attack (TIA), and cerebral infarction without residual deficits
CPT/HCPCS: 33208; 33286; 36415; 71046; 80053; 80061; 85027; 85610; 85730; 87081; 93005

== ENCOUNTER 2019-05-22 09:27 | Emergency (ER) | payer MEDICARE ==
[~2019-05-22] VITALS: Ht 162 cm; Wt 93.9 kg
[~2019-05-22 09:27] MED LIST changes: -BACITRACIN 50000 UNITS/500 ML NS IR ONE; -BACITRACIN INJECTION 50,000 UNIT, SODIUM CHLORIDE 0.9% IRRIGATIO 500 ML IR ONE; -FLU QUADRIvalent (5+ YOA) 2019-2020 (AFLURIA) 0.5 ML IM ONE; -HEParin 1000 UNIT/ML (10ML VIAL) FOR BOLUS ONE; -LIDOCAINE 1% INJ 20 ML 20 ML VIAL ONE; -NS IV 1000 ML 1,000 ML IV SCH; -NS IV 1000 ML 1,000 ML ONE; +SULF1TAB35 PO; -VANCOMYCIN INJECTION 1,000 MG in NS (IVPB) 250 ML IV NR
--- NOTE | 2019-05-22 10:43 | ED Integumentary General ---
General Chief Complaint: Skin/Wound Problems Stated Complaint: WOUND CHECK Nursing Triage Note: AMBULATED TO ROOM 10 WITHOUT DIFFICULTY. STATES SHE HAD A PACE MAKER PLACED X1 WEEK AGO BY DR CASH. TOOK THE DRESSING OFF AND FOUND A BLISTER. WANTS AREA CHECKED. Source: patient Exam Limitations: no limitations History of Present Illness Date Seen by Provider: May 22, 2019 Time Seen by Provider: 10:22 Initial Comments Here with concerns about blisters around the pacemaker placement site. Patient did have tape over the wound and appears to be getting some blisters from the tape. That has all been removed except for the Steri-Strips that she is getting some blisters under the Steri-Strips. Denies fever. Denies foul-smelling drainage or increasing redness.Pacemaker placed 6 days ago. Timing/Duration: yesterday, changing over time Severity: mild Location: torso Possible Cause: other (wound tape) Associated Symptoms: blisters, change in skin texture Allergies and Home Medications Allergies Coded Allergies: Penicillins (Verified Allergy, Unknown, 05/08/07) Home Medications Acetaminophen 500 Mg Tablet, 1,000 MG PO HS, (Reported) TAKES 2 (500MG) TABLETS Apixaban 5 Mg Tablet, 5 MG PO BID, (Reported) Aspirin 81 Mg Tab.chew, 81 MG PO DAILY, (Reported) Carvedilol 3.125 Mg Tablet, 3.125 MG PO BID, (Reported) Diltiazem HCl 240 Mg Cap.er.24h, 240 MG PO DAILY, (Reported) Escitalopram Oxalate 5 Mg Tablet, 5 MG PO DAILY, (Reported) Fish Oil/Dha/Epa 1 Each Capsule, 1,200 MG PO BID, (Reported) Flecainide Acetate 100 Mg Tablet, 100 MG PO Q12H, (Reported) Furosemide 40 Mg Tablet, 40 MG PO Q48H, (Reported) Levothyroxine Sodium 125 Mcg Tablet, 125 MCG PO [place],MO,,WE,FR,SA, (Reported) TAKES 1 TAB ON SUN,SUN,SUN,SUN,SUN AND SUNDAY & TAKES 1/2 TAB ON Levothyroxine Sodium 125 Mcg Tablet, 62.5 MCG PO , (Reported) TAKES 1 TAB ON SUN,SUN,SUN,SUN,SUN AND SUNDAY & TAKES 1/2 TAB ON Melatonin/Pyridoxine 1 Each Tablet, 5 MG PO HS, (Reported) Multivitamin 1 Each Tablet, 1 EACH PO DAILY, (Reported) Oxybutynin Chloride 5 Mg Tablet, 2.5 MG PO BID, (Reported) TAKES OF A 5MG TO EQUAL A 2.5MG TWICE DAILY Pantoprazole Sodium 40 Mg Tablet.dr, 40 MG PO DAILY, (Reported) Potassium Chloride 10 Meq Tablet.er, 10 MEQ PO DAILY, (Reported) Sulfamethoxazole/Trimethoprim 1 Each Tablet, 1 EACH PO BID Prescribed by: MICHELLE CASH on 05/16/191825 Temazepam 15 Mg Capsule, 15 MG PO HS, (Reported) Patient Home Medication List Home Medication List Reviewed: Yes Review of Systems Review of Systems Constitutional: see HPI; No chills, No fever Respiratory: no symptoms reported Cardiovascular: No palpitations; other (reported some dizziness yesterday but that is resolved today and patient drove here.) Skin: see HPI, change in color, lesions Past Vymwnyq-Zcrtvl-Olzuwz Hx Past Med/Social Hx: Reviewed Nursing Past Med/Soc Hx Patient Social History Alcohol Use: Denies Use Recreational Drug Use: No Smoking Status: Former Smoker Type Used: Cigarettes Former Smoker, Quit: Mar 06, 1999 2nd Hand Smoke Exposure: No Recent Foreign Travel: No Contact w/Someone Who Travel: No Recent Infectious Disease Expo: No Recent Hopitalizations: Yes Immunizations Up To Date Tetanus Booster (TDap): More than 5yrs Date of Pneumonia Vaccine: Mar 19, 2012 Date of Influenza Vaccine: Mar 19, 2012 Past Medical History Surgeries: Yes (LOOP) Appendectomy, Coronary Stent, Gallbladder, Hysterectomy Respiratory: Yes Sleep Apnea Cardiac: 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) Atrial Fibrillation, Coronary Artery Disease, Hypertension Neurological: No Reproductive Disorders: No 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 Sexually Transmitted Disease: No HIV/AIDS: No Genitourinary: No Gastrointestinal: Yes Gastroesophageal Reflux, Polyps Musculoskeletal: No (hip and back pain, restless legs) Chronic Back Pain Endocrine: Yes (RADIOACTIVE TREATMENT FOR THYROID) Hypothyroidsim Cataract Loss of Vision: Denies Hearing Impairment: Denies Cancer: Yes Breast Did You Recieve Any Treatments: Yes What Type of Treatment Did You: Surgical Intervention Psychosocial: Yes Anxiety Integumentary: No Blood Disorders: No Adverse Reaction/Blood Tranf: No Family Medical History Reviewed Nursing Family Hx Arthritis G8 SISTER Headache disorder 19 FATHER G8 SISTER Myocardial infarction 19 FATHER Neoplasm 19 MOTHER Respiratory disorder G8 SISTER Thyroid disease G8 SISTER G8 SISTER G8 SISTER No Family History of: AIDS Abdominal aortic aneurysm [place]'s disease Alcoholism Alzheimer's disease Aphasia Asthma Cancer of mouth Cardiovascular disease Cataracts Colon cancer Completed stroke Congenital disease Congenital heart disease Coronary thrombosis Cystic fibrosis Deafness or hearing loss Dementia Diabetes mellitus Drug abuse Dysphasia Fibrocystic disease of breast Gastroenteritis Glaucoma Hypercholesterolemia Hypertension Infertility Kidney disease Not obtainable due to adoption Osteoporosis Parkinson's disease Prostate cancer Psychosocial problem Seizure disorder Severe allergy Tuberculosis Visual disorder Heart Disease, COPD, Hypertension Physical Exam Vital Signs Vital Signs - First Documented 05/22/19 09:48 Temp 36.7 Pulse 70 Resp 16 B/P (MAP) 139/74 (95) Pulse Ox 94 O2 Delivery Room Air Capillary Refill : Less Than 3 Seconds General Appearance: WD/WN, no apparent distress Neck: full range of motion, supple, normal inspection Cardiovascular: regular rate, rhythm, no murmur Respiratory: lungs clear, normal breath sounds Skin: warm/dry, other (has a few skin eruptions at the border of the previous tape dressing over surgical wound site for pacemaker to the left upper chest. She also has blister forming under the Steri-Strip over the wound on the lateral border of the pacemaker insertion site. No foul-smelling drainage and wound is closed and appears to be healing well.) Progress/Results/Core Measures Results/Orders Vital Signs/I&O 05/22/19 09:48 Temp 36.7 Pulse 70 Resp 16 B/P (MAP) 139/74 (95) Pulse Ox 94 O2 Delivery Room Air Blood Pressure Mean: 95 Progress Progress Note : Progress Note Seen and evaluated. All Steri-Strips removed and wound has good approximation with healing appropriate and without signs of infection. Does have blisters that appear to be from tape. We did cover wound with dry dressing and used paper tape to secure dry dressings. Patient has been on antibiotics for 3 days and had 3 day course only. We will go ahead and initiate completion of 7 day course. Discharged home with return precautions. Patient and family verbalize understanding instructions and agreement with plan. Departure Impression Primary Impression: Contact dermatitis Qualified Codes: L24.89 - Irritant contact dermatitis due to other agents Disposition: 01 HOME, SELF-CARE Condition: Improved Departure-Patient Inst. Decision time for Depature: 10:43 Referrals: JONE PERSON MD (PCP/Family) Primary Care Physician Patient Instructions: Contact Dermatitis (DC) Add. Discharge Instructions: All discharge instructions reviewed with patient and/or family. Voiced understanding. Keep wound clean. You may cover wound with dry dressing and use paper tape only. If blisters open you may use antibiotic ointment over the wound but otherwise just use dry dressing. Minimize movement to the left arm to decrease strain on the wound edges. Take antibiotics as directed. Follow-up with your doctor later this week or early next week for recheck and further evaluation. Return for worse pain, swelling, foul-smelling drainage, fever, increasing redness or other concerns as needed. Scripts Sulfamethoxazole/Trimethoprim (Sulfamethoxazole-Tmp Ds Tablet) 1 Each Tablet 1 EACH PO BID, #10 TAB 0 Refills Prov: OLEKSANDR MARTINI MD 05/22/19 OLEKSANDR MARTINI MD May 22, 2019 10:43
[2019-05-22] MEDS ORDERED: SULF-222 PO (10:45)
[2019-05-22 10:59] VITALS: BP 139/74
== END 2019-05-22 10:59 | disposition home or self-care (01) ==
LOC: EDUNIT# 09:27 → ER 09:28
DX: L25.9 Unspecified contact dermatitis, unspecified cause (principal); I48.91 Unspecified atrial fibrillation; I25.10 Atherosclerotic heart disease of native coronary artery without angina pectoris; I10 Essential (primary) hypertension; K21.9 Gastro-esophageal reflux disease without esophagitis; E03.9 Hypothyroidism, unspecified; F41.9 Anxiety disorder, unspecified; Z85.3 Personal history of malignant neoplasm of breast; Z95.0 Presence of cardiac pacemaker; Z88.0 Allergy status to penicillin; Z79.01 Long term (current) use of anticoagulants; Z79.82 Long term (current) use of aspirin; Z87.891 Personal history of nicotine dependence; Z90.49 Acquired absence of other specified parts of digestive tract; Z95.5 Presence of coronary angioplasty implant and graft; Z90.710 Acquired absence of both cervix and uterus; Z82.49 Family history of ischemic heart disease and other diseases of the circulatory system

== ENCOUNTER 2019-06-02 13:38 | Outpatient (RCR) | payer MEDICARE ==
[~2019-06-02 13:38] MED LIST changes: -MELA3TAB PO; +MELA3TAB65 PO; +OXYB5TAB13 PO; -OXYB5TAB9 PO; +SULF-222 PO; -TRAZ-222 PO; +TRZ50T PO
== END 2019-06-13 | disposition home or self-care (01) ==
LOC: CR3 13:38
PROVIDERS: ATTEND Internal Medicine Cardiovascular Disease
DX: Z29.8 Encounter for other specified prophylactic measures (principal)

== ENCOUNTER → 2019-07-16 | Outpatient (RCR) | payer MEDICARE | END | disposition home or self-care (01) | LOC: CR3 06-16 13:00 | PROVIDERS: ATTEND Internal Medicine Cardiovascular Disease | DX: Z29.8 Encounter for other specified prophylactic measures (principal) ==

== ENCOUNTER 2019-08-06 13:19 | Outpatient (RCR) | payer MEDICARE ==
[~2019-08-06 13:19] MED LIST changes: +MELA3TAB39 PO; -MELA3TAB65 PO
== END 2019-08-22 | disposition home or self-care (01) ==
LOC: CR3 13:19
PROVIDERS: ATTEND Internal Medicine Cardiovascular Disease
DX: Z29.8 Encounter for other specified prophylactic measures (principal)

== ENCOUNTER → 2019-11-13 | Outpatient (CLI) | payer MEDICARE ==
--- NOTE | 2019-11-13 16:04 | Diagnostic Imaging Report ---
INDICATION: Routine screening. COMPARISON: Prior mammograms from 11/11/2018 and 10/25/2017. EXAMINATION: Unilateral right 2D and 3D screening mammography was performed with CAD. Right breast remains heterogeneously dense, limiting the sensitivity of mammography. The parenchymal pattern is stable. No mass or malignant appearing microcalcifications are seen. Right axilla is unremarkable. IMPRESSION: No mammographic features suspicious for malignancy are identified. ACR BI-RADS Category 1: Negative. Result letter will be mailed to the patient. Note: At least 10% of breast cancer is not imaged by mammography. Dictated by: Dictated on workstation # [id number]
== END ==
LOC: RAD 10:02
PROVIDERS: ATTEND Internal Medicine Hematology & Oncology
DX: Z12.31 Encounter for screening mammogram for malignant neoplasm of breast (principal); C50.112 Malignant neoplasm of central portion of left female breast
CPT/HCPCS: 77063

== ENCOUNTER → 2019-12-05 | Outpatient (CLI) | payer MEDICARE ==
[2019-12-05 11:34] LABS: BASOPHILS # (AUTO) 0.1 10^3/uL (0.0-0.1); BASOPHILS % (AUTO) 2 % (0-10); EOSINOPHILS # (AUTO) 0.6 10^3/uL (0.0-0.3); EOSINOPHILS % (AUTO) 8 % (0-10); HEMATOCRIT 44 % (35-52); HEMOGLOBIN 14.5 G/DL (11.5-16.0); LYMPHOCYTES # (AUTO) 1.4 X 10^3 (1.0-4.0); LYMPHOCYTES % (AUTO) 18 % (12-44); MEAN CORPUSCULAR HEMOGLOBIN 33 PG (25-34); MEAN CORPUSCULAR HGB CONC 33 G/DL (32-36); MEAN CORPUSCULAR VOLUME 98 FL (80-99); MEAN PLATELET VOLUME 9.6 FL (7.4-10.4); MONOCYTES # (AUTO) 0.5 X 10^3 (0.0-1.0); MONOCYTES % (AUTO) 6 % (0-12); NEUTROPHILS # (AUTO) 5.2 X 10^3 (1.8-7.8); NEUTROPHILS % (AUTO) 67 % (42-75); PLATELET COUNT 304 10^3/uL (130-400); RED CELL DISTRIBUTION WIDTH 13.6 % (10.0-14.5); WHITE BLOOD COUNT 7.7 10^3/uL (4.3-11.0)
[2019-12-05 11:57] LABS: ALBUMIN 4.2 GM/DL (3.2-4.5); BILIRUBIN,TOTAL 0.7 MG/DL (0.1-1.0); CALCIUM 9.6 MG/DL (8.5-10.1); CREATININE SERUM 1.03 MG/DL (0.60-1.30); POTASSIUM 4.3 MMOL/L (3.6-5.0); TOTAL PROTEIN 7.2 GM/DL (6.4-8.2)
== END ==
LOC: ONC 11:21
PROVIDERS: ATTEND Internal Medicine Hematology & Oncology
DX: C50.919 Malignant neoplasm of unspecified site of unspecified female breast (principal); E78.5 Hyperlipidemia, unspecified; I25.10 Atherosclerotic heart disease of native coronary artery without angina pectoris; I25.2 Old myocardial infarction; E03.9 Hypothyroidism, unspecified; I48.0 Paroxysmal atrial fibrillation; Z98.890 Other specified postprocedural states; Z90.12 Acquired absence of left breast and nipple
CPT/HCPCS: 80053; 85025; G0463; 99213

== ENCOUNTER → 2020-08-23 | Outpatient (CLI) | payer MEDICARE ==
[~2020-08-23] MED LIST changes: -AMIO200T4 PO; +AMIO200T6 PO; +ASPI-1238 PO; -ASPI-983 PO; -CLIN300C11 PO; +CLIN300C12 PO; -ESCI5TAB12 PO; +ESCI5TAB16 PO; -PANT40TA3 PO; +PANT40TA52 PO; -RAMI2.5C2 PO; +RAMI2.5C54 PO
--- NOTE | 2020-08-23 10:30 | Diagnostic Imaging Report ---
PROCEDURE: US carotid duplex, bilateral. TECHNIQUE: Multiple real-time grayscale images were obtained over the carotid arteries in various projections, bilaterally. Additional spectral analysis and color Doppler duplex images were also obtained. INDICATION: Atherosclerosis. There are no prior exams available for comparison. There is only mild hard and soft plaque formation in both carotid systems. Flow velocities failed to show any sign of a hemodynamically significant stenosis. Both vertebral arteries are identified and there was antegrade flow bilaterally. IMPRESSION: There is mild atherosclerotic disease involving both carotid systems but there is no evidence for a hemodynamically significant stenosis of the common or internal carotid arteries. Parameters based on the consensus panel Hurt-Scale and Doppler ultrasound criteria published March 2003, Radiology, Volume 229. DOPPLER (peak systolic velocity M/S Right Left CCA .70 .70 ICA Proximal .68 .75 ICA Mid .75 .72 ICA Distal .91 .57 RATIO 1.3 1.1 ECA .80 .70 VERT .43 .41 Dictated by: Dictated on workstation # [id number]
== END ==
LOC: CARD 08:27
PROVIDERS: ATTEND Internal Medicine Cardiovascular Disease
DX: I65.23 Occlusion and stenosis of bilateral carotid arteries (principal); R06.09 Other forms of dyspnea
CPT/HCPCS: 93306; 93880

== ENCOUNTER 2020-08-30 15:12 | Outpatient (RCR) | payer MEDICARE | END 2020-09-08 | disposition home or self-care (01) | LOC: CR3 15:12 | PROVIDERS: ATTEND Internal Medicine Cardiovascular Disease | DX: Z29.8 Encounter for other specified prophylactic measures (principal) ==

== ENCOUNTER 2020-10-11 15:03 | Outpatient (RCR) | payer MEDICARE | END 2020-10-15 | disposition home or self-care (01) | LOC: CR3 15:03 | PROVIDERS: ATTEND Internal Medicine Cardiovascular Disease | DX: Z29.8 Encounter for other specified prophylactic measures (principal) ==

== ENCOUNTER → 2020-11-23 | Outpatient (CLI) | payer MEDICARE ==
--- NOTE | 2020-11-23 11:20 | Diagnostic Imaging Report ---
INDICATION: Postmenopausal state. COMPARISON: 03/02/2011 FINDINGS: AP Spine L1-L4: [BMD (g/cm2): 01.124] [T-Score: -0.6] [Z-Score: 0.0] [BMD Previous: 1.237] [BMD % Change: -9.1] LT Hip Neck: [BMD (g/cm2): 0.726] [T-Score: -2.2] [Z-Score: -1.1] LT Hip Total: [BMD (g/cm2):0.874] [T-Score:-1.1] [Z-Score: -0.2] [BMD Previous: 0.889] [BMD % Change: -1.7] RT Hip Neck: [BMD (g/cm2):0.762] [T-Score:-2.0] [Z-Score:-0.8] RT Hip Total: [BMD (g/cm2):0.898] [T-score:-0.9] [Z-Score:0.0] [BMD Previous:0.914] [BMD % Change:-1.8] *Indicates significant change from prior examination based on 95% confidence level. World Health Organization criteria for BMD interpretation classify patients as Normal (T-score at or above -1.0), Osteopenic (T-score between -1.0 and -2.5) or Osteoporotic (T-score at or below -2.5). LIMITATIONS AND MODIFICATION: None. FRACTURE RISK (FRAX SCORE): The ten year probability of (%): Major Osteoporotic Fracture: [13.1] Hip Fracture: [3.3] IMPRESSION: 1. Osteopenia (Low bone mass). 2. No significant change in bone mineral density since prior examination. 3. See below National Osteoporosis Foundation guidelines on when to potentially initiate pharmacologic therapy. Based on the National Osteoporosis Foundation Guidelines, pharmacologic treatment should be initiated in any of the following, unless clinical conditions suggest otherwise: * Any patient with prior fragility fracture of the hip or vertebrae. A spine fracture indicates 5X risk for subsequent spine fracture and 2X risk for subsequent hip fracture. * Osteoporosis (T-score <-2.5). * Postmenopausal women and men age 50 and older with low bone mass/osteopenia (T-score between -1.0 and -2.5) by DXA and 10-year major osteoporotic fracture greater than 20% or a 10-year probability of hip fracture greater than 3%. These fracture risks are supplied above in the FRAX score, if applicable. * Clinician judgement and/or patient preferences may indicate treatment for people with 10-year fracture probabilities above or below these levels. Dictated by: Dictated on workstation # [id number]
--- NOTE | 2020-11-23 12:46 | Diagnostic Imaging Report ---
INDICATION: Routine screening. Comparison is made with prior mammogram 11/13/2019 and 11/11/2018. 2-D and 3-D unilateral right screening mammography was performed with a Computer Aided Detection (CAD) system. 3-D tomosynthesis was also performed and reviewed. FINDINGS: Right breast is heterogeneously dense, limiting the sensitivity of mammography. There are vascular calcifications and benign parenchymal calcifications. No spiculated mass or malignant appearing microcalcifications are seen. Right axilla is unremarkable. IMPRESSION: No mammographic features suspicious for malignancy are identified. ACR BI-RADS Category 2: Benign findings. Result letter will be mailed to the patient. Note: At least 10% of breast cancer is not imaged by mammography. Dictated by: Dictated on workstation # [id number]
== END ==
LOC: RAD 09:15
PROVIDERS: ATTEND Family Medicine
DX: Z12.31 Encounter for screening mammogram for malignant neoplasm of breast (principal); M85.80 Other specified disorders of bone density and structure, unspecified site; Z78.0 Asymptomatic menopausal state
CPT/HCPCS: 77063; 77080

== ENCOUNTER → 2020-12-08 | Outpatient (RCR) | payer MEDICARE ==
[~2020-12-08] MED LIST changes: -SULF1TAB35 PO; +SULF1TAB38 PO
== END | disposition home or self-care (01) ==
LOC: CR3 11-08 13:20
PROVIDERS: ATTEND Internal Medicine Cardiovascular Disease
DX: Z29.8 Encounter for other specified prophylactic measures (principal)

== ENCOUNTER → 2020-12-21 | Day surgery (SDC) | payer MEDICARE ==
[2020-12-21] VITALS (10 sets, daily range): BP systolic 117–147; BP diastolic 57–88
[~2020-12-21] VITALS: Ht 157.5 cm; Wt 95.3 kg
[~2020-12-21] MED LIST changes: +ALEN70TA80 PO; +ATOR40TA70 PO; +CALC-823 PO; +CHOL500050 PO; +CYAN-41 PO; +DILT240C91 PO; +HEParin (CATH LAB) 2,000 ML IV ONE; +LIDOCAINE 1% INJ 20 ML 20 ML VIAL ONE; +MELA5TAB14 PO; +MIDAZOLAM 5 MG/5 ML (VERSED) VIAL ONE; +NS IV 1000 ML 0 ML ONE; +NS IV 1000 ML 1,000 ML IV SCH; +NS IV 1000 ML 1,000 ML ONE; +PATIENT MAY USE OWN MEDS, ALL PO SCH; +POTA10TA36 PO; +fentaNYL INJ 100 MCG/2 ML AMP ONE
[2020-12-21 08:37] LABS: HEMATOCRIT 46 % (35-52); HEMOGLOBIN 15.6 g/dL (11.5-16.0); MEAN CORPUSCULAR HEMOGLOBIN 33 pg (25-34); MEAN CORPUSCULAR HGB CONC 34 g/dL (32-36); MEAN CORPUSCULAR VOLUME 97 fL (80-99); MEAN PLATELET VOLUME 9.3 fL (9.0-12.2); PLATELET COUNT 347 10^3/uL (130-400); WHITE BLOOD COUNT 7.3 10^3/uL (4.3-11.0)
[2020-12-21 09:05] LABS: INR 1.1 (0.8-1.4); PROTHROMBIN TIME PATIENT 14.1 SEC (12.2-14.7)
[2020-12-21 09:12] LABS: ALBUMIN 4.2 GM/DL (3.2-4.5); BILIRUBIN,TOTAL 0.8 MG/DL (0.1-1.0); CALCIUM 9.9 MG/DL (8.5-10.1); CREATININE SERUM 1.2 MG/DL (0.60-1.30); POTASSIUM 3.6 MMOL/L (3.6-5.0); TOTAL PROTEIN 7.1 GM/DL (6.4-8.2)
--- NOTE | 2020-12-21 10:04 | Cardiac Procedure Note-CS/ASA ---
Pre-Procedure Note Pre-Op Procedure Note H&P Reviewed The H&P was reviewed, patient examined and no changes noted. Date H&P Reviewed: Dec 21, 2020 Time H&P Reviewed: 10:03 Conscious Sedation Pre-Proced Time 10:03 ASA Score 3 For ASA 3 and 4: Consider anesthesia and medical clearance. Also, for patients with a history of failed moderate sedation consider anesthesia. Airway Lungs Heart ASA score ASA 1: a normal healthy patient ASA 2: a patient with a mild systemic disease (mid diabetes, controlled hypertension, obesity ASA 3: a patient with a severe systemic disease that limits activity (angina, COPD, prior Myocardial infarction) ASA 4: a patient with an incapacitating disease that is a constant threat to life (CHF, renal failure) ASA 5: a moribund patient not expected to survive 24 hrs. (ruptured aneurysm) ASA 6: a declared brain- patient whose organs are being harvested. For emergent operations, add the letter E after the classification Mallampati Classification Grade 3 Sedation Plan Analgesia, Amnesia, Plan communicated to team members, Discussed options with patient/fam, Discussed risks with patient/fam The patient is an appropriate candidate to undergo the planned procedure, sedation, and anesthesia. The patient immediately re-assessed prior to indication. MICHELLE CASH MD FACP FAC CCDS Dec 21, 2020 10:04
--- NOTE | 2020-12-21 11:16 | Discharge Inst-Cardiology ---
Discharge Inst-Cardiac Discharge Medications New Medications: Atorvastatin Calcium (Atorvastatin Calcium) 40 Mg Tablet 40 MG PO DAILY for 90 Days, #90 TAB 3 Refills Continued Medications: Acetaminophen (Tylenol Extra Strength) 500 Mg Tablet 500 MG PO HS, TAB Alendronate Sodium (Alendronate Sodium) 70 Mg Tablet 70 MG PO MON, TAB Apixaban (Eliquis) 5 Mg Tablet 5 MG PO BID, TAB Calcium Carbonate (Calcium) 500 Mg Tablet 500 MG PO DAILY, TAB Carvedilol (Coreg) 3.125 Mg Tablet 3.125 MG PO BID, TAB Cholecalciferol (Vitamin D3) (Vitamin D3) 125 Mcg Capsule 125 MCG PO DAILY, CAP Cyanocobalamin (Vitamin B-12) (Vitamin B-12) 1,000 Mcg Tablet 1000 MCG PO DAILY, TAB Diltiazem HCl (Diltiazem 24Hr ER) 240 Mg Cap.er.24h 240 MG PO DAILY, CAP Escitalopram Oxalate (Escitalopram Oxalate) 5 Mg Tablet 5 MG PO DAILY Flecainide Acetate (Flecainide Acetate) 100 Mg Tablet 100 MG PO BID, TAB Furosemide (Furosemide) 40 Mg Tablet 40 MG PO Q48H, TAB Levothyroxine Sodium (Levothyroxine Sodium) 125 Mcg Tablet 125 MCG PO [place],TU,WE,FR,SA, TAB Levothyroxine Sodium (Levothyroxine Sodium) 125 Mcg Tablet 62.5 MCG PO SUN,THUR, TAB TAKES OF A 125MCG TAB Melatonin (Melatonin) 5 Mg Tablet 5 MG PO HS, TAB Nitroglycerin (Nitroglycerin) 0.4 Mg Tab.subl 0.4 MG SL UD PRN for CHEST PAIN, TAB Oxybutynin Chloride (Oxybutynin Chloride) 5 Mg Tablet 2.5 MG PO BID TAKES OF A 5MG TO EQUAL A 2.5MG TWICE DAILY Pantoprazole Sodium (Pantoprazole Sodium) 40 Mg Tablet.dr 40 MG PO DAILY, TAB Potassium Chloride (Potassium Chloride) 10 Meq Tab.er.prt 10 MEQ PO DAILY PRN for WHEN TAKING FUROSEMIDE Temazepam (Temazepam) 15 Mg Capsule 15 MG PO HS MICHELLE CASH MD FACP MERGED WITH [facility] CCDS Dec 21, 2020 11:16
--- NOTE | 2020-12-21 11:17 | Discharge Inst-Post CATH ---
Discharge Inst-CATH/EP Post Cardiac Cath/EP D/C Inst Follow Up/Plan F/u with Dr Wells in 2 weeks ACTIVITY * Go Home directly and rest. * Limit activity of the leg (or wrist if it was used) for 7 days including aerobics, swimming, jogging, bicycling, etc. * Restrict stair-climbing for 7 days if possible, if not, climb up with your no n-cath leg, then bring together on the same step. * Avoid lifting, pushing, pulling or excessive movement of the affected ext remity for 7 days. * Customary sexual activity may be resumed after 2 days-use caution not to use a position that strains or causes pain to the affected extremity. * No driving for 24 hours. * NO SMOKING. * Avoid straining for bowel movements for 7 days. * Gentle walking on level ground is allowed. * Returning to work will depend on the type of procedure and the results. Your doctor will discuss this with you. CALL YOUR DOCTOR FOR ANY OF THE FOLLOWING: *If bleeding from the puncture site occurs- Apply gentle pressure to site with clean cloth and call your doctor or EMS. * If a knot or lump forms under the skin, increases in size, or causes pain. * If bruising appears to be worsening or moving further down your leg instead of disappearing. * Temperature above 101 F. CARE OF YOUR GROIN INCISION; * Bruising or purple discoloration of the skin near the puncture site is common. * You may shower only, no bathtub bathing for 5 days. Be careful to avoid slipping as your leg may feel stiff. * If a closure device was used on your femoral artery, please see the attached guide regarding care of the device and your leg. * Leave dressing on FOR 24 hours. CARE OF YOUR WRIST INCISION; * Bruising or purple discoloration of the skin near the puncture site is common. * You may shower. * DO NOT submerge wrist. * Leave dressing on FOR 24 hours. MICHELLE WELLS MD FACP FAC CCDS Dec 21, 2020 11:17
--- NOTE | 2020-12-21 13:20 | CARDIAC CATHETERIZATION ---
DATE OF SERVICE: 12/16/2020 CARDIAC CATHETERIZATION REPORT INDICATION FOR PROCEDURE: The patient is a 75-year-old lady, who is known to have coronary artery disease and who has been experiencing increasing shortness of breath for the last several weeks. Activity has been quite limited. Complete heart catheterization was carried out to evaluate her increasing shortness of breath. Informed consent was obtained. DESCRIPTION OF PROCEDURE: She was brought to the cardiac catheterization laboratory in a fasting state. Right groin was prepared and draped in the usual sterile fashion. Lidocaine 1% was used for local anesthesia. Modified Seldinger technique was used to advance a 7-Tanzanian sheath into the right femoral vein and a 5-Tanzanian sheath in the right femoral artery. We used a 7-Tanzanian Jarbidge-Germain catheter to carry out right heart catheterization and to measure oxygen saturation in the various right heart chambers. The catheter was then removed. We used the arterial sheath to carry out left heart catheterization with a 5-Tanzanian pigtail catheter. This was removed and we then carried out left coronary angiography with a 5-Tanzanian JL4 catheter and right coronary angiography with a 5-Tanzanian JR4 catheter. Angiography of the right femoral artery was carried out through the sheath and Mynx was used to achieve hemostasis. We did not carry out left ventricular angiography because the patient had baseline renal insufficiency and we wanted to keep the contrast to a minimum. Perioperative hydration was carried out beginning before the procedure, continued through the procedure, and plan to continue afterwards for several hours. HEMODYNAMICS: Pulmonary artery pressure was 31/8 with a mean of 17 mmHg. Mean pulmonary wedge pressure was 2 mmHg. Right ventricular pressure was 27/5. Mean right atrial pressure was 2 mmHg. Left ventricular pressure was 138/5. There was no significant pressure gradient on pullback across the aortic valve. Ascending aortic pressure was 137/55 with a mean of 87 mmHg. Cardiac output by thermodilution was 3.2 liters per minute with a cardiac index of 1.64 liters per minute per meter squared. Pulmonary vascular resistance was 4.44 Wood units. CORONARY ANGIOGRAPHY: Left main coronary artery does not exhibit significant disease. Left anterior descending and left circumflex arteries have moderate diffuse calcification without any significant stenosis. Proximal right coronary artery is large and dominant and it has a widely patent stent in its mid portion. The right coronary artery does not exhibit significant stenosis. CONCLUSIONS: 1. Normal right heart pressures. 2. Normal left ventricular end-diastolic pressure. 3. Coronary artery disease consisting of diffuse edcg-uc-qdlqelvk disease of the proximal portion of the left anterior descending and the left circumflex arteries without evidence of significant stenosis. The proximal right coronary artery demonstrates a patent stent in its mid portion. The right coronary artery is dominant. 4. Markedly elevated cholesterol on preoperative lab work. DISCUSSION AND RECOMMENDATIONS: Based on results of the study, it appears appropriate to continue a conservative approach. Outpatient followup is advised. We are recommending statin therapy. She had been on statin therapy, but apparently, had discontinued it a while back. Job ID: [id number] DocumentID: [id number] Dictated Date: 12/21/2020 11:34:18 Toddler Caregiver Date: 12/21/2020 13:19:41 Dictated By: MICHELLE CASH MD, MA, FACP, FACC,
== END ==
LOC: CATH 07:57
PROVIDERS: ATTEND Internal Medicine Cardiovascular Disease
DX: I25.10 Atherosclerotic heart disease of native coronary artery without angina pectoris (principal); I48.91 Unspecified atrial fibrillation; E78.5 Hyperlipidemia, unspecified; E03.9 Hypothyroidism, unspecified; G89.29 Other chronic pain; I49.5 Sick sinus syndrome; I95.1 Orthostatic hypotension; I51.9 Heart disease, unspecified; I65.23 Occlusion and stenosis of bilateral carotid arteries; I50.32 Chronic diastolic (congestive) heart failure; I48.0 Paroxysmal atrial fibrillation; G47.33 Obstructive sleep apnea (adult) (pediatric); R07.89 Other chest pain; R25.2 Cramp and spasm; R22.43 Localized swelling, mass and lump, lower limb, bilateral; K21.9 Gastro-esophageal reflux disease without esophagitis; R73.01 Impaired fasting glucose; Z95.0 Presence of cardiac pacemaker; Z79.01 Long term (current) use of anticoagulants; Z79.899 Other long term (current) drug therapy; Z79.890 Hormone replacement therapy; Z79.82 Long term (current) use of aspirin; Z87.891 Personal history of nicotine dependence; Z85.3 Personal history of malignant neoplasm of breast; Z90.710 Acquired absence of both cervix and uterus; Z90.49 Acquired absence of other specified parts of digestive tract
CPT/HCPCS: 80053; 80061; 85027; 85610; 85730; 87081; 93306; 93460; C1760; C1769; C1894 ×2; 36415

== ENCOUNTER 2021-01-03 13:06 | Outpatient (RCR) | payer MEDICARE ==
[~2021-01-03 13:06] MED LIST changes: -HEParin (CATH LAB) 2,000 ML IV ONE; -LIDOCAINE 1% INJ 20 ML 20 ML VIAL ONE; -MIDAZOLAM 5 MG/5 ML (VERSED) VIAL ONE; -NS IV 1000 ML 0 ML ONE; -NS IV 1000 ML 1,000 ML IV SCH; -NS IV 1000 ML 1,000 ML ONE; -PATIENT MAY USE OWN MEDS, ALL PO SCH; -fentaNYL INJ 100 MCG/2 ML AMP ONE
== END 2021-01-12 | disposition home or self-care (01) ==
LOC: CR3 13:06
PROVIDERS: ATTEND Internal Medicine Cardiovascular Disease
DX: Z29.8 Encounter for other specified prophylactic measures (principal)

== ENCOUNTER → 2021-10-10 | Outpatient (CLI) | payer MEDICARE ==
[~2021-10-10] MED LIST changes: -AMIO200T6 PO; +AMIO200T65 PO; +CLIN-144 PO; -CLIN300C12 PO; -POTA10TA36 PO; +POTA10TA37 PO
--- NOTE | 2021-10-10 17:35 | Diagnostic Imaging Report ---
INDICATION: Chronic knee pain. EXAMINATION: Left knee 10/10/2021 FINDINGS: 3 views of the knee. The joint spaces appear maintained. There are no fractures or dislocations. No significant joint effusion. IMPRESSION: 1. No acute osseous abnormality. Dictated by: Dictated on workstation # [id number]
== END ==
LOC: RAD 15:14
PROVIDERS: ATTEND Nurse Practitioner Family
DX: M25.562 Pain in left knee (principal); M25.462 Effusion, left knee; G89.29 Other chronic pain
CPT/HCPCS: 73562

== ENCOUNTER → 2021-11-14 | Outpatient (CLI) | payer MEDICARE ==
--- NOTE | 2021-11-14 14:41 | Diagnostic Imaging Report ---
Indication: Pre-MRI screening. Time of Exam: 2:09 PM Correlation is made with prior chest from 07/17/2018. Heart size normal. Dual lead left subclavian cardiac pacemaker is noted. No definite abandoned leads are identified. The lungs are clear. No effusion or pneumothorax is seen. IMPRESSION: Unremarkable chest radiograph. No definite pacer abandoned leads are detected to preclude MRI. Dictated by: Dictated on workstation # [id number]
--- NOTE | 2021-11-14 17:34 | Diagnostic Imaging Report ---
EXAMINATION: Magnetic resonance imaging of the left knee without intravenous contrast DATE: November 14, 2021. COMPARISON: Left knee radiographs October 10, 2021. INDICATION: 76-year-old female, chronic left knee pain. TECHNIQUE: Multiplanar, multisequence non contrast enhanced MR imaging was accomplished. FINDINGS: MENISCI: There is a free edge tear involving the body of the lateral meniscus. The medial meniscus is intact. LIGAMENTS AND TENDONS: The anterior and posterior cruciate ligaments are intact. The medial collateral ligament is intact. The iliotibial band, mid third lateral capsular ligament, fibular collateral ligament, biceps femoris tendon and conjoined tendon are intact. The quadriceps tendon and patella ligament are intact. JOINT: The articular cartilage surfaces are intact. There is no knee joint effusion, prominent synovitis, or intra-articular body. BONE: There is unremarkable bone marrow signal. Specifically, negative for fracture, osteomyelitis, osteonecrosis, or marrow replacing process. BURSAE AND SOFT TISSUES: There is minimal fluid in the popliteal fossa without sizable Rodgers's cyst. There is nonspecific predominantly anterior subcutaneous edema. IMPRESSION: 1. Free edge tear involving the body of the lateral meniscus. Intact medial meniscus. 2. Intact anterior and posterior cruciate ligaments. Additional ligament and tendons are intact. 3. Intact articular cartilage. No knee joint effusion. 4. No acute fracture, bone contusion, or evidence of osteonecrosis. Dictated by: Dictated on workstation # [id number]
== END ==
LOC: RAD 14:45
PROVIDERS: ATTEND Nurse Practitioner Family
DX: Z01.810 Encounter for preprocedural cardiovascular examination (principal); S83.282A Other tear of lateral meniscus, current injury, left knee, initial encounter; X58.XXXA Exposure to other specified factors, initial encounter
CPT/HCPCS: 71045; 73721

== ENCOUNTER → 2021-11-29 | Outpatient (CLI) | payer MEDICARE | LOC: ORTHO 14:43 | PROVIDERS: ATTEND Orthopaedic Surgery | DX: M25.562 Pain in left knee (principal) | CPT/HCPCS: 99203 ==

== ENCOUNTER 2022-01-18 12:26 | Emergency (ER) | payer MEDICARE ==
[~2022-01-18] VITALS: Ht 162 cm; Wt 97.5 kg
--- NOTE | 2022-01-18 12:40 | ED Fall/Injury ---
General Chief Complaint: Trauma-Non Activation Stated Complaint: FALL Source: patient, EMS Exam Limitations: no limitations History of Present Illness Date Seen by Provider: Jan 18, 2022 Time Seen by Provider: 12:27 Initial Comments This is a 76-year-old female who presented to the ER via [facility] after falling just prior to arrival. [place] and fell forward and towards the right. She is complaining of pain around her right cheek, eye, left knee, right wrist. Denies loss of consciousness. Notes that she does take Eliquis daily. At this time she reports double vision whenever she looks to the left. Denies headache, neck pain, chest pain, pain in her hips. Allergies and Home Medications Allergies Coded Allergies: Penicillins (Verified Allergy, Unknown, 05/08/07) Patient Home Medication List Home Medication List Reviewed: Yes Acetaminophen (Tylenol Extra Strength) 500 Mg Tablet, 500 MG PO HS, (Reported) Entered as Reported by: ABRIL DUNN on 02/27/17 1114 Alendronate Sodium (Alendronate Sodium) 70 Mg Tablet, 70 MG PO MON, (Reported) Entered as Reported by: GERMAIN MCCORD on 12/21/20 1012 Apixaban (Eliquis) 5 Mg Tablet, 5 MG PO BID, (Reported) Entered as Reported by: GERMAIN MCCORD on 03/25/19 0843 Atorvastatin Calcium (Atorvastatin Calcium) 40 Mg Tablet, 40 MG PO DAILY Prescribed by: MICHELLE CASH on 12/21/20 1115 Calcium Carbonate (Calcium) 500 Mg Tablet, 500 MG PO DAILY, (Reported) Entered as Reported by: GERMAIN MCCORD on 12/21/20 1015 Carvedilol (Coreg) 3.125 Mg Tablet, 3.125 MG PO BID, (Reported) Entered as Reported by: GERMAIN MCCORD on 03/25/19 0843 Cholecalciferol (Vitamin D3) (Vitamin D3) 125 Mcg Capsule, 125 MCG PO DAILY, (Reported) Entered as Reported by: GERMAIN MCCORD on 12/21/20 1012 Cyanocobalamin (Vitamin B-12) (Vitamin B-12) 1,000 Mcg Tablet, 1,000 MCG PO DAILY, (Reported) Entered as Reported by: GERMAIN MCCORD on 12/21/20 1012 Diltiazem HCl (Diltiazem 24Hr ER) 240 Mg Cap.er.24h, 240 MG PO DAILY, (Reported) Entered as Reported by: GERMAIN MCCORD on 12/21/20 1016 Escitalopram Oxalate (Escitalopram Oxalate) 5 Mg Tablet, 5 MG PO DAILY, (Reported) Entered as Reported by: GERMAIN MCCORD on 03/25/19 0843 Flecainide Acetate (Flecainide Acetate) 100 Mg Tablet, 100 MG PO BID, (Reported) Entered as Reported by: LOLA PANDA on 10/02/17 1404 Furosemide (Furosemide) 40 Mg Tablet, 40 MG PO Q48H, (Reported) Entered as Reported by: ABRIL DUNN on 02/27/17 1114 Levothyroxine Sodium (Levothyroxine Sodium) 125 Mcg Tablet, 125 MCG PO MO,TU,WE,FR,SA, (Reported) Entered as Reported by: GERMAIN MCCORD on 03/25/19 0929 Levothyroxine Sodium (Levothyroxine Sodium) 125 Mcg Tablet, 62.5 MCG PO LUDY MAX, (Reported) Entered as Reported by: GERMAIN MCCORD on 05/13/19 1326 Melatonin (Melatonin) 5 Mg Tablet, 5 MG PO HS, (Reported) Entered as Reported by: GERMAIN MCCORD on 12/21/20 1012 Nitroglycerin (Nitroglycerin) 0.4 Mg Tab.subl, 0.4 MG SL UD PRN for CHEST PAIN, (Reported) Entered as Reported by: GERMAIN MCCORD on 12/21/20 1013 Oxybutynin Chloride (Oxybutynin Chloride) 5 Mg Tablet, 2.5 MG PO BID, (Reported) Entered as Reported by: GERMAIN MCCORD on 03/25/19 0843 Pantoprazole Sodium (Pantoprazole Sodium) 40 Mg Tablet.dr, 40 MG PO DAILY, (Reported) Entered as Reported by: ABRIL DUNN on 02/27/17 1101 Potassium Chloride (Potassium Chloride) 10 Meq Tab.er.prt, 10 MEQ PO DAILY PRN for WHEN TAKING FUROSEMIDE, (Reported) Entered as Reported by: GERMAIN MCCORD on 12/21/20 1012 Temazepam (Temazepam) 15 Mg Capsule, 15 MG PO HS, (Reported) Entered as Reported by: LOLA PANDA on 10/02/17 1404 Review of Systems Review of Systems Constitutional: see HPI Eyes: See HPI Ears, Nose, Mouth, Throat: see HPI Respiratory: no symptoms reported Cardiovascular: no symptoms reported Gastrointestinal: no symptoms reported Genitourinary: no symptoms reported Musculoskeletal: see HPI Skin: other (bruising and swelling of right cheek ) Psychiatric/Neurological: No Symptoms Reported Past Eojixaw-Rnegpj-Ytohcj Hx Immunizations Up To Date Tetanus Booster (TDap): More than 5yrs Past Medical History Surgeries: Yes (LOOP) Appendectomy, Coronary Stent, Gallbladder, Hysterectomy, Pacemaker Respiratory: Yes Sleep Apnea 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: 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) Atrial Fibrillation, Coronary Artery Disease, Hypertension Neurological: No Reproductive Disorders: No 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 Sexually Transmitted Disease: No HIV/AIDS: No Genitourinary: No Gastrointestinal: Yes Gastroesophageal Reflux, Polyps Musculoskeletal: No (hip and back pain, restless legs) Chronic Back Pain Endocrine: Yes (RADIOACTIVE TREATMENT FOR THYROID) Hypothyroidsim Cataract Loss of Vision: Denies Hearing Impairment: Denies Cancer: Yes Breast Did You Recieve Any Treatments: Yes What Type of Treatment Did You: Surgical Intervention Psychosocial: Yes Anxiety Integumentary: No Blood Disorders: No Adverse Reaction/Blood Tranf: No Family Medical History Arthritis G8 SISTER Headache disorder 19 FATHER G8 SISTER Myocardial infarction 19 FATHER Neoplasm 19 MOTHER Respiratory disorder G8 SISTER Thyroid disease G8 SISTER G8 SISTER G8 SISTER No Family History of: AIDS Abdominal aortic aneurysm Parkton's disease Alcoholism Alzheimer's disease Aphasia Asthma Cancer of mouth Cardiovascular disease Cataracts Colon cancer Completed stroke Congenital disease Congenital heart disease Coronary thrombosis Cystic fibrosis Deafness or hearing loss Dementia Diabetes mellitus Drug abuse Dysphasia Fibrocystic disease of breast Gastroenteritis Glaucoma Hypercholesterolemia Hypertension Infertility Kidney disease Not obtainable due to adoption Osteoporosis Parkinson's disease Prostate cancer Psychosocial problem Seizure disorder Severe allergy Tuberculosis Visual disorder Heart Disease, COPD, Hypertension Physical Exam Vital Signs Vital Signs - First Documented 01/18/22 12:29 Pulse 81 Resp 30 B/P (MAP) 133/82 (99) Pulse Ox 95 O2 Delivery Room Air Capillary Refill : Height, Weight, BMI Height: 5'2.00" Weight: 209lbs. 0.0oz. 94.924554tf; 38.41 BMI Method:Stated General Appearance: WD/WN, no apparent distress HEENT: PERRL/EOMI (Brisk, 3mm bilat. ) Respiratory: lungs clear, normal breath sounds, no respiratory distress, no accessory muscle use Gastrointestinal: normal bowel sounds, non tender, soft Neurologic/Psychiatric: no motor/sensory deficits, alert, normal mood/affect, oriented x 3 Skin: normal color, warm/dry Progress/Results/Core Measures Results/Orders Lab Results Laboratory Tests Test 01/18/22 12:39 01/18/22 12:45 Range/Units White Blood Count 6.9 4.3-11.0 10^3/uL Red Blood Count 4.52 3.80-5.11 10^6/uL Hemoglobin 15.4 11.5-16.0 g/dL Hematocrit 45 35-52 % Mean Corpuscular Volume 99 80-99 fL Mean Corpuscular Hemoglobin 34 25-34 pg Mean Corpuscular Hemoglobin Concent 35 32-36 g/dL Red Cell Distribution Width 12.9 10.0-14.5 % Platelet Count 332 130-400 10^3/uL Mean Platelet Volume 9.6 9.0-12.2 fL Immature Granulocyte % (Auto) 0 % Neutrophils (%) (Auto) 59 42-75 % Lymphocytes (%) (Auto) 24 12-44 % Monocytes (%) (Auto) 9 0-12 % Eosinophils (%) (Auto) 6 0-10 % Basophils (%) (Auto) 2 0-10 % Neutrophils # (Auto) 4.1 1.8-7.8 10^3/uL Lymphocytes # (Auto) 1.7 1.0-4.0 10^3/uL Monocytes # (Auto) 0.6 0.0-1.0 10^3/uL Eosinophils # (Auto) 0.4 H 0.0-0.3 10^3/uL Basophils # (Auto) 0.1 0.0-0.1 10^3/uL Immature Granulocyte # (Auto) 0.0 0.0-0.1 10^3/uL Prothrombin Time 14.5 12.2-14.7 SEC INR Comment 1.1 0.8-1.4 Sodium Level 142 135-145 MMOL/L Potassium Level 4.1 3.6-5.0 MMOL/L Chloride Level 103 98-107 MMOL/L Carbon Dioxide Level 28 21-32 MMOL/L Anion Gap 11 5-14 MMOL/L Blood Urea Nitrogen 13 7-18 MG/DL Creatinine 0.93 0.60-1.30 MG/DL Estimat Glomerular Filtration Rate 64 BUN/Creatinine Ratio 14 Glucose Level 114 H 70-105 MG/DL Calcium Level 10.1 8.5-10.1 MG/DL Corrected Calcium 9.8 8.5-10.1 MG/DL Total Bilirubin 0.8 0.1-1.0 MG/DL Aspartate Amino Transf (AST/SGOT) 20 5-34 U/L Alanine Aminotransferase (ALT/SGPT) 24 0-55 U/L Alkaline Phosphatase 67 40-136 U/L Total Protein 7.1 6.4-8.2 GM/DL Albumin 4.4 3.2-4.5 GM/DL My Orders Orders - PHILIP NÚÑEZ APRN Ed Iv/Invasive Line Start (01/18/22 12:35) Cbc With Automated Diff (01/18/22 12:35) Comprehensive Metabolic Panel (01/18/22 12:35) Protime With Inr (01/18/22 12:35) Knee, Left, 3 Views (01/18/22 12:35) Wrist, Right, 3 Views Or More (01/18/22 12:35) Ct Head/Face/Cervical Wo (01/18/22 12:35) Ua Culture If Indicated (01/18/22 14:01) Vital Signs/I&O 01/18/22 12:29 Pulse 81 Resp 30 B/P (MAP) 133/82 (99) Pulse Ox 95 O2 Delivery Room Air Departure Impression Primary Impression: Fall on same level Additional Impressions: Contusion of face Contusion of left knee Disposition: 01 HOME, SELF-CARE Condition: Improved Departure-Patient Inst. Decision time for Depature: 14:06 Referrals: JONE PERSON MD (PCP/Family) Primary Care Physician Patient Instructions: [facility] ED, Minor Head Injury, Adult ED Add. Discharge Instructions: Plan: 1. Discharge home. Wrap left knee with steven wrap to reduce swelling pain, may apply ice 20 minutes at a time. Follow up with Dr. Duarte. 2. Observe the patient for 24-48 hours. Contact your famliy physician, or return to the ER immeidately if any of the following are observed. -Repeated vomiting -Confusion, delirium or disorientation -Blurred vision or double vision -A difference in pupil size comparing left to right (black part of the eye) -Twitching or convulsions -Clear or blood fluid from the nose or ears -Persistent headaches or the worst headache of your life -Weakness of face, arm or leg muscles -Difficulty in rousing patient (the patient should be awakened every 2 hours during the first night) 3. Take nothing stronger than Tylenol or Ibuprofenfor pain. 4. Avoid alcohol intake. 5. Return to ER for any other new, concerning, or worsening symptoms. All discharge instructions reviewed with patient and/or family. Voiced understanding. PHILIP NÚÑEZ ZIGZAGGER Jan 18, 2022 12:40
[2022-01-18 12:58] LABS: BASOPHILS # (AUTO) 0.1 10^3/uL (0.0-0.1); BASOPHILS % (AUTO) 2 % (0-10); EOSINOPHILS # (AUTO) 0.4 10^3/uL (0.0-0.3); EOSINOPHILS % (AUTO) 6 % (0-10); HEMATOCRIT 45 % (35-52); HEMOGLOBIN 15.4 g/dL (11.5-16.0); LYMPHOCYTES # (AUTO) 1.7 10^3/uL (1.0-4.0); LYMPHOCYTES % (AUTO) 24 % (12-44); MEAN CORPUSCULAR HEMOGLOBIN 34 pg (25-34); MEAN CORPUSCULAR HGB CONC 35 g/dL (32-36); MEAN CORPUSCULAR VOLUME 99 fL (80-99); MEAN PLATELET VOLUME 9.6 fL (9.0-12.2); MONOCYTES # (AUTO) 0.6 10^3/uL (0.0-1.0); MONOCYTES % (AUTO) 9 % (0-12); NEUTROPHILS # (AUTO) 4.1 10^3/uL (1.8-7.8); NEUTROPHILS % (AUTO) 59 % (42-75); PLATELET COUNT 332 10^3/uL (130-400); WHITE BLOOD COUNT 6.9 10^3/uL (4.3-11.0)
[2022-01-18 13:14] LABS: ALBUMIN 4.4 GM/DL (3.2-4.5)
[2022-01-18 13:15] LABS: POTASSIUM 4.1 MMOL/L (3.6-5.0)
[2022-01-18 13:16] LABS: CALCIUM 10.1 MG/DL (8.5-10.1); INR 1.1 (0.8-1.4); PROTHROMBIN TIME PATIENT 14.5 SEC (12.2-14.7)
[2022-01-18 13:17] LABS: TOTAL PROTEIN 7.1 GM/DL (6.4-8.2)
[2022-01-18 13:19] LABS: BILIRUBIN,TOTAL 0.8 MG/DL (0.1-1.0)
[2022-01-18 13:21] LABS: CREATININE SERUM 0.93 MG/DL (0.60-1.30)
--- NOTE | 2022-01-18 13:32 | Diagnostic Imaging Report ---
INDICATION: Left knee pain. FINDINGS: Three views of the left knee show no fracture, dislocation or pathologic effusion. IMPRESSION: Unremarkable left knee. Dictated by: Dictated on workstation # [id number]
--- NOTE | 2022-01-18 13:35 | Diagnostic Imaging Report ---
PROCEDURE: CT head, face, and cervical spine without contrast. TECHNIQUE: Multiple contiguous axial images were obtained through the head, neck, and facial bones without the use of intravenous contrast. Sagittal and coronal reformations through the cervical spine and facial bones were also performed. Auto Exposure Controls were utilized during the CT exam to meet ALARA standards for radiation dose reduction. INDICATION: Fall, right-sided facial pain; patient is anticoagulated on Eliquis. FINDINGS: CT HEAD: There is no hemorrhage. There are no abnormal extra-axial fluid collections. There is no calvarial fracture deformity. No pneumocephalus. No focal or generalized cerebral edema. There are no findings of elevated pressures. There is cerebral cortical atrophy with periventricular white matter small vessel disease and intracranial atherosclerotic vascular calcifications as chronic senescent findings. CT FACIAL BONES: There are arthritic changes to the bilateral temporomandibular joints, greater right. No mandibular fracture deformity. The nasal bones and bony nasal septum are intact. The maxilla and anterior maxillary spine as well as pterygoid plates are intact. There is a shallow low-density air-fluid level in the left maxillary sinus, but no identifiable maxillary wall fracture. There is some right malar and infraorbital subcutaneous stranding, likely some bruising and ecchymosis. No associated fracture. Orbital rose and rims bilaterally are intact. Anterior and posterior rose of the frontal sinuses are intact. The sphenoids are clear. The central skull base is intact. No postseptal or retrobulbar orbital hematoma. CT CERVICAL SPINE: Cervical statures are normal. The alignment is anatomic. There is no fracture. There is multilevel cervical spondylosis with more substantial mid to lower cervical facet arthrosis, asymmetric, greater left. No facet joint dislocation. No fracture. No paraspinal hemorrhage. Thoracic inlet and visualized superior mediastinum are unremarkable. There are carotid atherosclerotic vascular calcifications. There is incomplete bony incorporation of the posterior C1 ring as a variant. IMPRESSION: CT HEAD: Chronic senescent changes, but no hemorrhage or fracture. CT FACIAL BONES: 1. No facial fracture. There is an air-fluid level, low in density, left maxillary believed to be on an inflammatory basis. No ada hemo-sinus. 2. Some right-sided facial malar subcutaneous stranding, likely bruising. No orbital injury. CT CERVICAL: Facet arthrosis and mild spondylosis, but no fracture or traumatic malalignment. Dictated by: Dictated on workstation # [id number]
--- NOTE | 2022-01-18 13:36 | Diagnostic Imaging Report ---
INDICATION: Right wrist injury from a fall. FINDINGS: Three views of the right wrist show no fracture, dislocation, or other acute abnormalities. IMPRESSION: Negative right wrist. Dictated by: Dictated on workstation # [id number]
[2022-01-18 14:06] LABS: BILIRUBIN,URINE NEGATIVE (NEGATIVE); CLARITY,URINE CLEAR; COLOR,URINE YELLOW; GLUCOSE, URINE (UA) NEGATIVE (NEGATIVE); KETONES,URINE NEGATIVE (NEGATIVE); LEUKOCYTE ESTERASE ,URINE NEGATIVE (NEGATIVE); NITRITE,URINE NEGATIVE (NEGATIVE); PROTEIN,URINE NEGATIVE (NEGATIVE)
[2022-01-18 14:15] LABS: BACTERIA,URINE LARGE /HPF; SQUAMOUS EPITHELIAL CELL,UR 0-2 /HPF; WBC,URINE 0-2 /HPF
[2022-01-18 14:27] VITALS: BP 120/60
== END 2022-01-18 14:27 | disposition home or self-care (01) ==
LOC: EDUNIT# 12:26 → ER 12:30
DX: S80.02XA Contusion of left knee, initial encounter (principal); S00.83XA Contusion of other part of head, initial encounter; S00.11XA Contusion of right eyelid and periocular area, initial encounter; I48.91 Unspecified atrial fibrillation; Z79.01 Long term (current) use of anticoagulants; W01.0XXA Fall on same level from slipping, tripping and stumbling without subsequent striking against object, initial encounter; Y93.01 Activity, walking, marching and hiking; Y92.513 Shop (commercial) as the place of occurrence of the external cause
CPT/HCPCS: 36415; 70450; 70486; 72125; 73110; 73562; 80053; 81000; 85025; 85610; 87088

== ENCOUNTER → 2022-01-26 | Outpatient (CLI) | payer MEDICARE ==
[~2022-01-26] MED LIST changes: +POTA-177 PO; -POTA10TA37 PO
== END ==
LOC: ORTHO 08:19
PROVIDERS: ATTEND Orthopaedic Surgery
DX: M25.562 Pain in left knee (principal); I25.10 Atherosclerotic heart disease of native coronary artery without angina pectoris; E78.5 Hyperlipidemia, unspecified; E66.9 Obesity, unspecified; E03.9 Hypothyroidism, unspecified; I50.33 Acute on chronic diastolic (congestive) heart failure
CPT/HCPCS: 20610